=== PATIENT | female | born 1985 | race Caucasian/White ===

== ENCOUNTER 2024-02-29 16:08 | Observation (INO) ==
--- NOTE | 2024-02-29 16:13 | ED Triage Note ---
Date of Service February 29, 2024 Provider in Triage Author: Prisca Fields History of Present Illness This patient was briefly evaluated while in triage. An abbreviated physical exam was performed. This patient is a 39-year-old Female who presents to the ED for evaluation DMT1, anxiety nausea and vomiting x 4 days- BSG 350 just [employer] "not feeling well mentally" having panic attacks no specific thoughts of harming herself, "I just have to will to live" Physical Exam GENERAL: NAD CARDIOVASCULAR: RRR RESPIRATORY: CTA ABDOMEN: BS present. NT to palpation throughout Initial orders for labs and / or imaging were placed and patient was placed in the waiting area until a bed is available. Please see further documentation for the full ED course.
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
[2024-02-29] MEDS: SODIUM CHLORIDE 0.9% 1,000 ML IV ONE (17:20)
[2024-02-29] MEDS: ONDANSETRON INJ 2 MG/ML 2 ML VIAL IV STA ×2 (17:28→20:18)
[2024-02-29] MEDS: ONDANSETRON 4 MG OD TAB PO STA (17:28)
[2024-02-29 17:35] LABS: Appearance Urine Clear (Clear); Bacteria Urine Automated 1+ (None Seen); Bilirubin Urine Negative (Negative); Blood Urine Negative (Negative); Cast Urine Automated 0-2 /lpf (0-2); Color Urine Yellow; Glucose Urine UA 3+ (Negative); Ketones Urine 4+ (Negative); Leukocyte Esterase Urine Negative (Negative); Nitrite Urine Negative (Negative); Protein Urine Trace (Negative); RBC Urine Automated 0-2 /hpf (0-2); Specific Gravity Urine 1.041 (1.000-1.030); Urobilinogen Urine Negative (Negative); WBC Urine Automated 0-5 /hpf (0-5); pH Urine 6.5 (4.5-7.5)
[2024-02-29 18:01] LABS: Amphetamines+Metham, Urine Neg (Neg); Barbiturates, Urine Neg (Neg); Benzodiazepine, Urine Pos (Neg); Cocaine, Urine Neg (Neg); Fentanyl, Urine Neg (Neg); MDMA (Ecstacy), Urine Neg (Neg); Marijuana, Urine Neg (Neg); Methadone, Urine Neg (Neg); Opiate, Urine Neg (Neg); Phencyclidine, Urine Neg (Neg)
[2024-02-29 18:05] LABS: Base Excess VBG 3.7 mEq/L; HCO3 VBG 28 mmol/L; Oxygen Saturation VBG 96.7 %; PCO2 VBG 39 mmHg (38-50); PO2 VBG 77 mmHg; pH VBG 7.46 (7.36-7.41)
[2024-02-29 18:11] LABS: Basophils # (auto) 0.02 K/uL (0.00-0.20); Basophils % (auto) 0.2 %; Eosinophils # (auto) 0.01 K/uL (0.00-0.50); Eosinophils % (auto) 0.1 %; Hematocrit (blood only) 34.2 % (37.0-47.0); Hemoglobin 11.7 g/dl (12.0-16.0); Immature Granulocytes # (auto) 0.07 K/uL (0.01-0.20); Immature Granulocytes % (auto) 0.6 %; Lymphocytes # (auto) 1.07 K/uL (1.20-3.40); Lymphocytes % (auto) 9.9 %; Mean Corpuscular Hemoglobin 28.2 pg (25.0-34.0); Mean Corpuscular Hgb Conc 34.2 g/dL (32.0-36.0); Mean Corpuscular Volume 82.4 fL (80.0-100.0); Mean Platelet Volume 10.7 fL (9.4-12.4); Monocytes # (auto) 0.65 K/uL (0.11-0.59); Neutrophils # (auto) 9.04 K/uL (1.40-6.50); Neutrophils % (auto) 83.2 %; Platelet Count 216 K/uL (130-400); RDW Standard Deviation 38.8 fL (36.4-46.3); Red Blood Count 4.15 M/uL (4.20-5.40); White Blood Count 10.86 K/ul (4.8-10.8)
[2024-02-29 18:23] LABS: Pregnancy Test, Serum Negative (Negative)
[2024-02-29 18:27] LABS: Albumin Globulin Ratio 1.2 (0.9-2); Albumin Level 4.1 gm/dl (3.4-5.0); BUN Creatinine Ratio 14.3 (10-20); Bilirubin,Total 0.8 mg/dl (0.2-1.0); Calcium 8.3 mg/dl (8.6-10.3); Creatinine Clr Calc Pharmacy 130.1 ml/min; Globulin 3.5 gm/dl (2.5-4.0); Magnesium 1.8 mg/dl (1.7-2.4); Potassium 3.7 mmol/L (3.5-5.1); Total Protein 7.6 gm/dl (6.0-8.3)
[2024-02-29 18:28] LABS: Adenovirus PCR Not Detected (NotDetected); Bordetella parapertussis PCR Not Detected (NotDetected); Bordetella pertussis PCR Not Detected (NotDetected); Chlamydia pneumoniae PCR Not Detected (NotDetected); Coronavirus 229E PCR Not Detected (NotDetected); Coronavirus CoV-2 (COVID19)PCR Not Detected (NotDetected); Coronavirus HKU1 PCR Not Detected (NotDetected); Coronavirus NL63 PCR Not Detected (NotDetected); Coronavirus OC43PCR Not Detected (NotDetected); Human Metapneumovirus PCR Not Detected (NotDetected); Influenza A PCR Not Detected (NotDetected); Influenza B PCR Not Detected (NotDetected); Mycoplasma pneumoniae PCR Not Detected (NotDetected); Parainfluenza Virus 1 PCR Not Detected (NotDetected); Parainfluenza Virus 2 PCR Not Detected (NotDetected); Parainfluenza Virus 3 PCR Not Detected (NotDetected); Parainfluenza Virus 4 PCR Not Detected (NotDetected); Respiratory Syncytial VirusPCR Not Detected (NotDetected); Rhinovirus/Enterovirus PCR Not Detected (NotDetected)
[2024-02-29 18:37] LABS: Acetaminophen < 3 ug/ml (10-30); Salicylate < 3.0 mg/dl (3.0-30)
[2024-02-29] MEDS: hydrOXYzine HCl 10 MG TAB PO ONE (18:41)
[2024-02-29] MEDS: diphenhydrAMINE 50 MG/ML VIAL IV STA (18:41)
[2024-02-29] MEDS: PROCHLORPERAZINE 1 ML IV ONE (18:41)
[2024-02-29] MEDS: PANTOprazole 40 MG/10 ML SYR IV ONE (19:07)
[2024-02-29] MEDS: SODIUM CHLORIDE 0.9% 500 ML IV ONE (20:18)
[2024-02-29] MEDS: OPTIRAY 320 100ml IV ONE (20:44)
--- NOTE | 2024-02-29 21:16 | CT Scan Report ---
Exam(s): CT ABDOMEN + PELVIS With Contrast IV Amt: 92 cc's optiray 320 EXAM: CT Abdomen and Pelvis With Intravenous Contrast CLINICAL HISTORY: abd pain; N/V. TECHNIQUE: Axial computed tomography images of the abdomen and pelvis with intravenous contrast. CTDI is 28.14 mGy and DLP is 1507.39 mGy-cm. Automated exposure control was utilized for the study. A dose lowering technique was utilized adhering to the principles of ALARA. CONTRAST: Patient received 92 cc's optiray 320 of IV contrast COMPARISON: CT abdomen and pelvis with contrast dated 12/26/2023 FINDINGS: Lung bases: Unremarkable. No mass. No consolidation. ABDOMEN: Liver: Unremarkable. No mass. Gallbladder and bile ducts: Cholecystectomy. No ductal dilation. Pancreas: Unremarkable. No mass. No ductal dilation. Spleen: Unremarkable. No splenomegaly. Adrenals: Unremarkable. No mass. Kidneys and ureters: Unremarkable. No solid mass. No hydronephrosis. Stomach and bowel: Stomach is moderately distended with fluid and gas. No gastric mucosal thickening noted. No bowel obstruction. No asymmetric bowel mucosal abnormality. Mild stool burden. No diverticulitis. PELVIS: Appendix: The appendix is not well delineated. No secondary findings to suggest acute appendicitis. Bladder: Unremarkable. No mass. Reproductive: Probable 1.5 cm follicle involving the right adnexa/ovary with adjacent surrounding enhancing tissue. ABDOMEN and PELVIS: Intraperitoneal space: Unremarkable. No free air. No significant fluid collection. Bones/joints: No acute fracture. No dislocation. Soft tissues: Unremarkable. Vasculature: Unremarkable. No abdominal aortic aneurysm. Lymph nodes: Prominent concentric mucosal thickening of the distal thoracic esophagus with paraesophageal fat stranding and edema and a presumed paraesophageal reactive lymph node, measuring up to 7 mm. There is moderate fluid distention of the included distal thoracic esophagus extending to the gastroesophageal junction. No pneumomediastinum. IMPRESSION: 1. Prominent concentric mucosal thickening of the distal thoracic esophagus with paraesophageal fat stranding and edema and a presumed paraesophageal reactive lymph node, measuring up to 7 mm. There is moderate fluid distention of the included distal thoracic esophagus extending to the gastroesophageal junction. No pneumomediastinum. Findings are most consistent with inflammatory or infectious esophagitis with a component of dysmotility. 2. The stomach is moderately distended with fluid and gas. No gastric mucosal thickening noted. No bowel obstruction. No asymmetric bowel mucosal abnormality. Mild stool burden. No diverticulitis. No free intraperitoneal fluid or pneumoperitoneum. 3. Probable 1.5 cm follicle involving the right adnexa/ovary with adjacent surrounding enhancing tissue. The clinical significance of this finding is indeterminant and this is presumed incidental. There is a leftward tilt of the anteverted uterus. The left adnexa is unremarkable. Electronically signed by: Rafa Mendoza MD 02/29/24 21:15 PM
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
--- NOTE | 2024-02-29 22:05 | XRay Report ---
SINGLE VIEW CHEST CLINICAL HISTORY: Enteric tube placement. FINDINGS: An AP, portable, upright chest radiograph is compared to study dated 02/04/2024. The examina tion is degraded by portable technique and patient rotation. An enteric tube has been placed. The tip projects below the diaphragm over the gastric fundus. The cardiomediastinal silhouette is unremarkab le. The lungs and pleural spaces are clear. No pneumothorax is seen. The bony thorax is grossly intac t. Cholecystectomy clips are seen in the right upper quadrant. IMPRESSION: 1. An enteric tube has been placed as above. 2. The lungs are clear. ACT 112: Negative or not required by law. Electronically signed by: Duy Marcus M.D. 02/29/2024 10:03 PM
[2024-02-29] MEDS: ACETAMINOPHEN 1,000 MG/100 ML VIAL IV STA (22:43)
[2024-02-29] MEDS: PROCHLORPERAZINE 5 MG in SYRINGE 4 ML IV ONE (23:07)
[2024-03-01] MEDS ORDERED: DEXTROSE 50% 50 ML SYRINGE IV PRN (00:11)
[2024-03-01] MEDS ORDERED: PHARMACY GLYCEMIC MGMT CONSULT PRN (00:11)
[2024-03-01] MEDS ORDERED: PROCHLORPERAZINE 5 MG in SYRINGE 4 ML IV PRN (00:11)
[2024-03-01] MEDS ORDERED: GLUCAGON FOR INJ 1 MG VIAL SQ PRN (00:11)
[2024-03-01] MEDS ORDERED: CARBOHYDRATES FOR HYPOGLYCEMIA PO PRN (00:11)
[2024-03-01] MEDS ORDERED: ONDANSETRON INJ 2 MG/ML 2 ML VIAL IV PRN (00:11)
[2024-03-01] MEDS ORDERED: GLUCOSE 40% GEL 15 GM TUBE PO PRN (00:11)
[2024-03-01] MEDS ORDERED: METOPROLOL TARTRATE 1 MG/ML VIAL IV PRN (00:11)
[2024-03-01] MEDS ORDERED: GLUCOSE 10 TAB/TUBE PO PRN (00:11)
[2024-03-01] MEDS: diazePAM 5 MG/ML 10ML VIAL IV PRN (00:52)
[2024-03-01] MEDS ORDERED: Nursing to Pharmacy Communication SCH (01:00)
[2024-03-01] MEDS: INSULIN ASPART PER UNIT CHARGE SC SCH ×2 (01:04→16:52)
[2024-03-01] MEDS: PLASMA-LYTE A 1,000 ML IV SCH (01:05)
[2024-03-01] MEDS: LANTUS PER UNIT CHARGE SQ SCH (01:05)
[2024-03-01] MEDS: PANTOprazole 40 MG/10 ML SYR IV SCH (02:02)
[2024-03-01] MEDS: FAMOTIDINE 20MG IV PUSH 20 MG/5 ML SYR IV SCH (02:02)
[2024-03-01] MEDS: HYDROmorphone INJ 0.5 MG/0.5 ML SYR IV STA (06:50)
[2024-03-01 07:12] LABS: Estimated Average Glucose 177 mg/dl; Hemoglobin A1C 7.8 % (4.5-5.6)
[2024-03-01 07:30] LABS: Albumin Globulin Ratio 1.3 (0.9-2); Albumin Level 3.6 gm/dl (3.4-5.0); BUN Creatinine Ratio 17.9 (10-20); Bilirubin,Total 0.6 mg/dl (0.2-1.0); Calcium 7.6 mg/dl (8.6-10.3); Creatinine Clr Calc Pharmacy 147.9 ml/min; Globulin 2.8 gm/dl (2.5-4.0); Potassium 3.8 mmol/L (3.5-5.1); Total Protein 6.4 gm/dl (6.0-8.3)
[2024-03-01 08:35] LABS: Hemoglobin 10.6 g/dl (12.0-16.0); Mean Corpuscular Hgb Conc 33.1 g/dL (32.0-36.0); Mean Corpuscular Volume 84.7 fL (80.0-100.0); RDW Coefficient of Variation 13.2 % (11.5-14.5); RDW Standard Deviation 40.3 fL (36.4-46.3); Red Blood Count 3.78 M/uL (4.20-5.40); White Blood Count 8.29 K/ul (4.8-10.8)
[2024-03-01 08:40] LABS: Basophils # (auto) 0.03 K/uL (0.00-0.20); Basophils % (auto) 0.4 %; Eosinophils # (auto) 0.07 K/uL (0.00-0.50); Eosinophils % (auto) 0.8 %; Immature Granulocytes # (auto) 0.03 K/uL (0.01-0.20); Immature Granulocytes % (auto) 0.4 %; Lymphocytes # (auto) 1.64 K/uL (1.20-3.40); Lymphocytes % (auto) 19.8 %; Mean Platelet Volume 11.6 fL (9.4-12.4); Monocytes # (auto) 0.67 K/uL (0.11-0.59); Monocytes % (auto) 8.1 %; Neutrophils # (auto) 5.85 K/uL (1.40-6.50); Neutrophils % (auto) 70.5 %; Ovalocytes 1+; Platelet Count 201 K/uL (130-400); Platelet Estimate Normal (Normal); Polychromasia 1+
[2024-03-01] MEDS: ACETAMINOPHEN 1,000 MG/100 ML VIAL IV PRN (09:12)
--- NOTE | 2024-03-01 09:19 | Hospitalist Progress Note ---
Date of Service March 01, 2024 Assessment & Plan (1) Esophagitis: Plan: 39-year-old female presenting with intractable N/V; History of GERD, takes carafate, famotidine, nexium; Panic attacks trigger episodes of N/V. Appears to follow with [facility] diagnosed with gastroparesis. - 02/28: Dark/coffee ground appearance of emesis - Note: pts med record shows recent prescription for doxycycline, however patient states she never started this (was initially prescribed for boil near vaginal opening, but resolved) - CT A/P: inflammatory or infectious esophagitis with a component of dysmotility--> NG placed in ED, draining dark colored liquid, +positive for occu lt blood - T1DM; consider diabetes related gastroparesis/dysmotility as contributing factor - H/H 11.7/34.2 now 10.6/32.0; down from baseline, could be hemodilutional versus from acute blood loss - IV pepcid, protonix BID - Zofran, Compazine PRN -Resume home Carafate po - GI consulted- EGD 03/01--> esophageal ulcer with bleeding at the lower third of esophagus, with appearance of gastric congestion from likely a pill; dispersed medium erosions of recent bleeding in gastric body likely secondary to NG tube - Chloraseptic [place] for sore throat 2/2 NG tube placed -Clear liquids diet only now Appreciate GI input and recs (2) Type 1 diabetes: Plan: T1DM; at home Lantus 20U daily, 19 U HS - Hyperglycemic on arrival (277), +ketones, glucose in urine - Not currently meeting criteria for DKA - A1c 7.8% - Pharmacy glycemic management consult; basal insulin dose currently cut in half while n.p.o. -Add D5 to fluids if not able to take adequate p.o. and hypoglycemia (3) Depression: Plan: Multiple mental health diagnosed disorders - PTSD, schizoaffective Disorder, Depression, Anxiety - Multiple prior admissions at inpatient psychiatric facilities --> [facility] - Continue Invega injection as scheduled--> STOP prazosin and valium - Patient with passive statements about "losing will to live", denies active suicidal thoughts or plans for suicide - Feeling very anxious today, would like to be considered for inpatient treatment following this discharge - Psych consulted- concern for treatment resistant PTSD per psych, recs as follows: Stop prazosin, start doxazosin 3 mg at bedtime and 2 mg daily. Patient unable to take oral benzos when anxiety symptoms occur secondary to intractable nausea/vomiting when this happens; stop Valium, start clonazepam 0.5 mg ODT twice daily, as well as daily, as needed, for breakthrough anxiety; adjustments made Appreciate psych input and recs Plan Tachycardia -Takes metoprolol succinate 25mg BID at home; adjusted to IV lopressor 2.5mg q6h PRN while NPO Dispo: Pending clinical improvement and GI recs VTE Prophylaxis: hold in setting of coffee ground emesis Code Status: Full Code Admission and Anticipated Discharge Date Admission Date: February 29, 2024 Supervising Physician Co-Signing Physician Notes Physician Retail Merchandising Specialist Supervision note: I have not personally seen and examined the patient, but discussed and verified the benson points of the history and physical along with the plan with MATTHEW Rae with the following exceptions and/or additions: None Subjective Pt is laying in bed at time of visit. States that she is still experiencing significant abdominal pain, and nausea. Also admits to a sore throat secondary to NG tube placement. Presently feeling very anxious. Denies chest pain, shortness of breath, diarrhea/constipation, headache, numbness/tingling. No recent or excessive NSAID use per patient. No new concerns per nursing. Telemetry: NSR with occasional PVCs, HR 60-70s Review of Systems Review of Systems: All systems reviewed & are unremarkable except as noted in Subjective Physical Exam Physical Exam: General: Appears uncomfortable Skin: Warm and dry Head: Normocephalic, atraumatic Eyes: PERRL, conjunctivae clear ENT: External ear and ear canal without swelling; nose atraumatic, NG tube placed Neck: Supple, no LAD; no JVD Cardio: RRR, no M/G/R, S1 and S2 normal Resp: Chest wall symmetric, normal respiratory effort; No respiratory distress, Lungs CTA in all lobes bilaterally, no wheezes, rales, or rhonchi Abdomen: Soft, nontender; no distention; No masses or hepatosplenomegaly MSK: No deformities; Pulses palpable and equal; No edema. Neuro: Awake, alert Psych: Appropriate mood and affect Results & Data Results & Data Vital Signs (Past 12 Hours) Vital Signs Temp Pulse Pulse Resp BP Pulse Ox Pulse Ox 03/01/24 07:27 36.8 C 76 19 102/65 92 03/01/24 03:10 36.6 C 67 18 117/73 98 03/01/24 00:46 104 H 03/01/24 00:30 03/01/24 00:11 94 03/01/24 00:10 37.1 C 103 H 22 134/89 94 O2 Del Method O2 Del Method 03/01/24 07:27 Room Air 03/01/24 03:10 Room Air 03/01/24 00:46 03/01/24 00:30 Room Air 03/01/24 00:11 Room Air 03/01/24 00:10 Room Air Laboratory Results CBC, BMP, LFTs reviewed Urine culture reviewed Diagnostic Findings EGD report reviewed PG Care Time/CCT Total # of Minutes Spent Total Time Spent with Patient: Total time spent is greater than 50% in coordination of care (as documented) at patient's floor/unit and/or counseling patient: Coding Level of Care Code 49432 SUB INP/OBS CARE 3/50MIN Diagnoses Esophagitis K20.90 Type 1 diabetes E10.9 Diabetes mellitus complication status: without complication Depression F32.A Time Spent (min) 40 (2) Type 1 diabetes Diabetes mellitus complication status: without complication Qualified Code(s): E10.9 - Type 1 diabetes mellitus without complications
--- NOTE | 2024-03-01 11:01 | Pharmacy Report ---
Pharmacy Glycemic Short Note 2 - Date of Service March 01, 2024 - Glycemic Short BSG Results (Last 24 hours): 02/29/24 03/01/24 03/01/24 17:55 00:40 06:16 Glucose 277 H 191 H POC Glucose 217 H 03/01/24 06:25 Glucose POC Glucose 206 H OUTPATIENT ANTIDIABETIC REGIMEN: * Insulin Glargine 20 units AM, 19 units PM * Insulin Aspart SSI, range 5-12 units with meal * A1c 7.8% 03/01/24 ASSESSMENT: 03/01 * FS is here for treatment of GI bleed, N/V, and esophagitis. Pharmacy consulted to manage her T1DM while inpatient. BSGs high on admission, lowered to 191 this AM. Pt currently NPO, receiving plasmalyte. Concern for hypoglycemia while NPO and ongoing N/V, therefore reduced home dose of glargine by 50%. PLAN FOR INPATIENT GLYCEMIC CONTROL: * Hold outpatient diabetes medications * Basal insulin * Lantus 10 units SQ BID * Bolus insulin * NovoLog per scale ACHS or Q6hrs while NPO * Goal Range: Low 110 mg/dL - High 140 mg/dL * Correction Factor: 45 mg/dL/unit * Nutritional / Prandial insulin per carb ratio of 1 unit per 15 grams CHO consumed
--- NOTE | 2024-03-01 13:07 | Gastrointestinal Consultation ---
Date of Consultation March 01, 2024 Assessment & Plan (1) Coffee ground emesis: 39 year old woman with coffee grround emesis of 48 hours duration. While it sounds like it is related to esophagitis she is on aggressive medical treatment for esophagitis. I plan to do EGD. Procedure and risks for endoscopy discussed. She agrees. History of Present Illness Reason for Consultation: hematemesis Attending Physician: Naima Rivas MD History of Present Illness 39 year old female who says for the past two days she has been vomiting "black stuff". She has heartburn for which she takes nexium, pepcid and carafate. She tells me she was diagnosed with "gastroparesis" by [facility] but they cannot put her on meds because it interferes with her psyche meds. She denies abdominal pain. She denies fever or chills Allergies Allergy/AdvReac Type Severity Reaction Status Date / Time Penicillins Allergy Unknown Verified 03/01/24 12:56 Home Medications Medication Instructions Recorded Confirmed Type insulin detemir U-100 100 unit/mL 19 unit subcut HS 12/26/23 02/29/24 History subcutaneous solution insulin detemir U-100 100 unit/mL 20 unit subcut DAILY 12/26/23 02/29/24 History subcutaneous solution prazosin 2 mg capsule 3 mg PO HS 12/26/23 02/29/24 History esomeprazole magnesium 40 mg 40 mg PO BID 02/05/24 02/29/24 History capsule,delayed release (Nexium) famotidine 20 mg tablet 40 mg PO BID 02/05/24 02/29/24 History Carafate PO QID 02/29/24 History Invega 02/29/24 History Novolog U-100 Insulin aspart AC 02/29/24 History Valium 10 mg PO BID 02/29/24 02/29/24 History metoprolol tartrate 25 mg PO BID 02/29/24 02/29/24 History Patient History Social History Smoking Status: Smoker, status unknown Do You Dip or Chew Tobacco: No; Tobacco Cessation Education Requested by Patient: No Hx Alcohol Use: No Hx Substance Use: No Preferred Language: Montenegrin Communication Ability: Effective 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: No Beliefs That Will Affect Care: None Current Living Situation: Significant Other Other Information That Helps Us Care for You: No Feels Safe at Home: Yes Safety Concerns: Feels Safe At This Time Gender Identity: Female Assistive Devices: None Review of Systems Review of Systems: All systems reviewed & are unremarkable except as noted in HPI & below Physical Exam Constitutional: WD/WN, vitals as above + morbidly obese Neck: trachea midline, no thyromegaly Respiratory: normal respiratory effort, lungs clear to auscultation Cardiovascular: RRR, no murmur, no edema Gastrointestinal (Abdomen): normal bowel sounds, soft, nontender, no hepatosplenomegaly Musculoskeletal: Extremities: extremities normal to inspection Results & Data Vital Signs (Past 12 Hours) Vital Signs Temp Pulse Resp BP Pulse Ox O2 Del Method 03/01/24 11:26 36.7 C 85 18 103/64 92 Room Air 03/01/24 07:27 36.8 C 76 19 102/65 92 Room Air 03/01/24 03:10 36.6 C 67 18 117/73 98 Room Air Laboratory Results 03/01/24 03/01/24 03/01/24 Range/Units 11:25 06:25 06:16 WBC (4.8-10.8) K/ul RBC (4.20-5.40) M/uL Hgb (12.0-16.0) g/dl Hct (37.0-47.0) % MCV (80.0-100.0) fL MCH (25.0-34.0) pg MCHC (32.0-36.0) g/dL RDW Std Deviation (36.4-46.3) fL RDW Coeff of Amy (11.5-14.5) % Plt Count (130-400) K/uL MPV (9.4-12.4) fL Immature Gran % (Auto) % Neut % (Auto) % Lymph % (Auto) % [place] % (Auto) % Eos % (Auto) % Baso % (Auto) % Neut # (Auto) (1.40-6.50) K/uL Lymph # (Auto) (1.20-3.40) K/uL [place] # (Auto) (0.11-0.59) K/uL Eos # (Auto) (0.00-0.50) K/uL Baso # (Auto) (0.00-0.20) K/uL Immature Gran # (Auto) (0.01-0.20) K/uL Platelet Estimate (Normal) Polychromasia Ovalocytes VBG pH (7.36-7.41) VBG pCO2 (38-50) mmHg VBG pO2 mmHg VBG HCO3 mmol/L VBG O2 Saturation % VBG Base Excess mEq/L Sodium 136 (136-145) mmol/L Potassium 3.8 (3.5-5.1) mmol/L Chloride 103 (98-107) mmol/L Carbon Dioxide 24 (21-32) mmol/L Anion Gap 9 (3-11) BUN 10 (6-23) mg/dl Creatinine 0.56 L (0.6-1.2) mg/dl Est Cr Clr Drug Dosing 147.9 ml/min eGFR 118.25 BUN/Creatinine Ratio 17.9 (10-20) Glucose 191 H (70-99(Fasting)) mg/dl POC Glucose 164 H 206 H (70-99) mg/dl Estimat Average Glucose mg/dl Hemoglobin A1c (4.5-5.6) % Calcium 7.6 L (8.6-10.3) mg/dl Magnesium 2.0 (1.7-2.4) mg/dl Total Bilirubin 0.6 (0.2-1.0) mg/dl AST 12 L (13-39) U/L ALT 10 (7-52) U/L Alkaline Phosphatase 65 (34-104) U/L Total Protein 6.4 (6.0-8.3) gm/dl Albumin 3.6 (3.4-5.0) gm/dl Globulin 2.8 (2.5-4.0) gm/dl Albumin/Globulin Ratio 1.3 (0.9-2) Lipase (11-82) U/L HCG, Qual (Negative) Urine Color Urine Appearance (Clear) Urine pH (4.5-7.5) Ur Specific [place] (1.000-1.030) Urine Protein (Negative) Urine Glucose (UA) (Negative) Urine Ketones (Negative) Urine Blood (Negative) Urine Nitrite (Negative) Urine Bilirubin (Negative) Urine Urobilinogen (Negative) Ur Leukocyte Esterase (Negative) Urine WBC (Auto) (0-5) /hpf Urine RBC (Auto) (0-2) /hpf U Hyaline Cast (Auto) (0-2) /lpf U Epithel Cells (Auto) (0-2) /hpf Urine Bacteria (Auto) (None Seen) Salicylates (3.0-30) mg/dl Urine Opiates Screen (Neg) Ur Methadone, Qual (Neg) Urine Fentanyl Screen (Neg) Acetaminophen (10-30) ug/ml Urine Barbiturates (Neg) Ur Phencyclidine (PCP) (Neg) U Amphetamin/Meth Scrn (Neg) MDMA (Ecstasy) Screen (Neg) U OH-Alprazolam Confrm U Benzodiazepines Scrn (Neg) 7-Amino Clonazepam Ur Nordiazepam Confirm U OH-ethylflurazepam U Lorazepam Cnf GC/MS U Oxazepam Confm GC/MS Ur Temazepam Confirm U OH-Triazolam Confirm U OH-Midazolam Confirm Ur Cocaine Metabolite (Neg) U Marijuana (THC) Screen (Neg) Drug Screen Comment Ethyl Alcohol mg/dL (<10.0) mg/dl Adenovirus (PCR) (NotDetected) B. pertussis DNA (PCR) (NotDetected) B.parapertussis DNA PCR (NotDetected) C. pneumoniae DNA (PCR) (NotDetected) Coronavirus OC43 (PCR) (NotDetected) Coronavirus HKU1 (PCR) (NotDetected) Coronavirus 229E (PCR) (NotDetected) SARS-CoV-2 (PCR) (NotDetected) Coronavirus NL63 (PCR) (NotDetected) Human Metapneumovir PCR (NotDetected) Influenza Type A (PCR) (NotDetected) Influenza Type B (PCR) (NotDetected) M. pneumoniae (PCR) (NotDetected) Parainfluenza 1 (PCR) (NotDetected) Parainfluenza 2 (PCR) (NotDetected) Parainfluenza 3 (PCR) (NotDetected) Parainfluenza 4 (PCR) (NotDetected) RSV (PCR) (NotDetected) Entero/Rhino (PCR) (NotDetected) Blood Type Antibody Screen 03/01/24 03/01/24 02/29/24 Range/Units 06:01 00:40 19:59 WBC 8.29 (4.8-10.8) K/ul RBC 3.78 L (4.20-5.40) M/uL Hgb 10.6 L (12.0-16.0) g/dl Hct 32.0 L (37.0-47.0) % MCV 84.7 (80.0-100.0) fL MCH 28.0 (25.0-34.0) pg MCHC 33.1 (32.0-36.0) g/dL RDW Std Deviation 40.3 (36.4-46.3) fL RDW Coeff of Amy 13.2 (11.5-14.5) % Plt Count 201 (130-400) K/uL MPV 11.6 (9.4-12.4) fL Immature Gran % (Auto) 0.4 % Neut % (Auto) 70.5 % Lymph % (Auto) 19.8 % [place] % (Auto) 8.1 % Eos % (Auto) 0.8 % Baso % (Auto) 0.4 % Neut # (Auto) 5.85 (1.40-6.50) K/uL Lymph # (Auto) 1.64 (1.20-3.40) K/uL [place] # (Auto) 0.67 H (0.11-0.59) K/uL Eos # (Auto) 0.07 (0.00-0.50) K/uL Baso # (Auto) 0.03 (0.00-0.20) K/uL Immature Gran # (Auto) 0.03 (0.01-0.20) K/uL Platelet Estimate Normal (Normal) Polychromasia 1+ Ovalocytes 1+ VBG pH (7.36-7.41) VBG pCO2 (38-50) mmHg VBG pO2 mmHg VBG HCO3 mmol/L VBG O2 Saturation % VBG Base Excess mEq/L Sodium (136-145) mmol/L Potassium (3.5-5.1) mmol/L Chloride (98-107) mmol/L Carbon Dioxide (21-32) mmol/L Anion Gap (3-11) BUN (6-23) mg/dl Creatinine (0.6-1.2) mg/dl Est Cr Clr Drug Dosing ml/min eGFR BUN/Creatinine Ratio (10-20) Glucose (70-99(Fasting)) mg/dl POC Glucose 217 H (70-99) mg/dl Estimat Average Glucose 177 mg/dl Hemoglobin A1c 7.8 H (4.5-5.6) % Calcium (8.6-10.3) mg/dl Magnesium (1.7-2.4) mg/dl Total Bilirubin (0.2-1.0) mg/dl AST (13-39) U/L ALT (7-52) U/L Alkaline Phosphatase (34-104) U/L Total Protein (6.0-8.3) gm/dl Albumin (3.4-5.0) gm/dl Globulin (2.5-4.0) gm/dl Albumin/Globulin Ratio (0.9-2) Lipase (11-82) U/L HCG, Qual (Negative) Urine Color Urine Appearance (Clear) Urine pH (4.5-7.5) Ur Specific [place] (1.000-1.030) Urine Protein (Negative) Urine Glucose (UA) (Negative) Urine Ketones (Negative) Urine Blood (Negative) Urine Nitrite (Negative) Urine Bilirubin (Negative) Urine Urobilinogen (Negative) Ur Leukocyte Esterase (Negative) Urine WBC (Auto) (0-5) /hpf Urine RBC (Auto) (0-2) /hpf U Hyaline Cast (Auto) (0-2) /lpf U Epithel Cells (Auto) (0-2) /hpf Urine Bacteria (Auto) (None Seen) Salicylates (3.0-30) mg/dl Urine Opiates Screen (Neg) Ur Methadone, Qual (Neg) Urine Fentanyl Screen (Neg) Acetaminophen (10-30) ug/ml Urine Barbiturates (Neg) Ur Phencyclidine (PCP) (Neg) U Amphetamin/Meth Scrn (Neg) MDMA (Ecstasy) Screen (Neg) U OH-Alprazolam Confrm U Benzodiazepines Scrn (Neg) 7-Amino Clonazepam Ur Nordiazepam Confirm U OH-ethylflurazepam U Lorazepam Cnf GC/MS U Oxazepam Confm GC/MS Ur Temazepam Confirm U OH-Triazolam Confirm U OH-Midazolam Confirm Ur Cocaine Metabolite (Neg) U Marijuana (THC) Screen (Neg) Drug Screen Comment Ethyl Alcohol mg/dL (<10.0) mg/dl Adenovirus (PCR) (NotDetected) B. pertussis DNA (PCR) (NotDetected) B.parapertussis DNA PCR (NotDetected) C. pneumoniae DNA (PCR) (NotDetected) Coronavirus OC43 (PCR) (NotDetected) Coronavirus HKU1 (PCR) (NotDetected) Coronavirus 229E (PCR) (NotDetected) SARS-CoV-2 (PCR) (NotDetected) Coronavirus NL63 (PCR) (NotDetected) Human Metapneumovir PCR (NotDetected) Influenza Type A (PCR) (NotDetected) Influenza Type B (PCR) (NotDetected) M. pneumoniae (PCR) (NotDetected) Parainfluenza 1 (PCR) (NotDetected) Parainfluenza 2 (PCR) (NotDetected) Parainfluenza 3 (PCR) (NotDetected) Parainfluenza 4 (PCR) (NotDetected) RSV (PCR) (NotDetected) Entero/Rhino (PCR) (NotDetected) Blood Type A Positive Antibody Screen NEGATIVE 02/29/24 02/29/24 02/29/24 Range/Units 17:55 16:35 16:25 WBC 10.86 H (4.8-10.8) K/ul RBC 4.15 L (4.20-5.40) M/uL Hgb 11.7 L (12.0-16.0) g/dl Hct 34.2 L (37.0-47.0) % MCV 82.4 (80.0-100.0) fL MCH 28.2 (25.0-34.0) pg MCHC 34.2 (32.0-36.0) g/dL RDW Std Deviation 38.8 (36.4-46.3) fL RDW Coeff of Amy 13.0 (11.5-14.5) % Plt Count 216 (130-400) K/uL MPV 10.7 (9.4-12.4) fL Immature Gran % (Auto) 0.6 % Neut % (Auto) 83.2 % Lymph % (Auto) 9.9 % [place] % (Auto) 6.0 % Eos % (Auto) 0.1 % Baso % (Auto) 0.2 % Neut # (Auto) 9.04 H (1.40-6.50) K/uL Lymph # (Auto) 1.07 L (1.20-3.40) K/uL [place] # (Auto) 0.65 H (0.11-0.59) K/uL Eos # (Auto) 0.01 (0.00-0.50) K/uL Baso # (Auto) 0.02 (0.00-0.20) K/uL Immature Gran # (Auto) 0.07 (0.01-0.20) K/uL Platelet Estimate (Normal) Polychromasia Ovalocytes VBG pH 7.46 H (7.36-7.41) VBG pCO2 39 (38-50) mmHg VBG pO2 77 mmHg VBG HCO3 28 mmol/L VBG O2 Saturation 96.7 % VBG Base Excess 3.7 mEq/L Sodium 134 L (136-145) mmol/L Potassium 3.7 (3.5-5.1) mmol/L Chloride 97 L (98-107) mmol/L Carbon Dioxide 24 (21-32) mmol/L Anion Gap 13 H (3-11) BUN 9 (6-23) mg/dl Creatinine 0.63 (0.6-1.2) mg/dl Est Cr Clr Drug Dosing 130.1 ml/min eGFR 114.94 BUN/Creatinine Ratio 14.3 (10-20) Glucose 277 H (70-99(Fasting)) mg/dl POC Glucose (70-99) mg/dl Estimat Average Glucose mg/dl Hemoglobin A1c (4.5-5.6) % Calcium 8.3 L (8.6-10.3) mg/dl Magnesium 1.8 (1.7-2.4) mg/dl Total Bilirubin 0.8 (0.2-1.0) mg/dl AST 14 (13-39) U/L ALT 13 (7-52) U/L Alkaline Phosphatase 78 (34-104) U/L Total Protein 7.6 (6.0-8.3) gm/dl Albumin 4.1 (3.4-5.0) gm/dl Globulin 3.5 (2.5-4.0) gm/dl Albumin/Globulin Ratio 1.2 (0.9-2) Lipase 6 L (11-82) U/L HCG, Qual Negative (Negative) Urine Color Yellow Urine Appearance Clear (Clear) Urine pH 6.5 (4.5-7.5) Ur Specific [place] 1.041 H (1.000-1.030) Urine Protein Trace H (Negative) Urine Glucose (UA) 3+ H (Negative) Urine Ketones 4+ H (Negative) Urine Blood Negative (Negative) Urine Nitrite Negative (Negative) Urine Bilirubin Negative (Negative) Urine Urobilinogen Negative (Negative) Ur Leukocyte Esterase Negative (Negative) Urine WBC (Auto) 0-5 (0-5) /hpf Urine RBC (Auto) 0-2 (0-2) /hpf U Hyaline Cast (Auto) 0-2 (0-2) /lpf U Epithel Cells (Auto) 3-5 H (0-2) /hpf Urine Bacteria (Auto) 1+ H (None Seen) Salicylates < 3.0 L (3.0-30) mg/dl Urine Opiates Screen Neg (Neg) Ur Methadone, Qual Neg (Neg) Urine Fentanyl Screen Neg (Neg) Acetaminophen < 3 L (10-30) ug/ml Urine Barbiturates Neg (Neg) Ur Phencyclidine (PCP) Neg (Neg) U Amphetamin/Meth Scrn Neg (Neg) MDMA (Ecstasy) Screen Neg (Neg) U OH-Alprazolam Confrm Pending U Benzodiazepines Scrn Pos H (Neg) 7-Amino Clonazepam Pending Ur Nordiazepam Confirm Pending U OH-ethylflurazepam Pending U Lorazepam Cnf GC/MS Pending U Oxazepam Confm GC/MS Pending Ur Temazepam Confirm Pending U OH-Triazolam Confirm Pending U OH-Midazolam Confirm Pending Ur Cocaine Metabolite Neg (Neg) U Marijuana (THC) Screen Neg (Neg) Drug Screen Comment Pending Ethyl Alcohol mg/dL < 10.0 (<10.0) mg/dl Adenovirus (PCR) Not Detected (NotDetected) B. pertussis DNA (PCR) Not Detected (NotDetected) B.parapertussis DNA PCR Not Detected (NotDetected) C. pneumoniae DNA (PCR) Not Detected (NotDetected) Coronavirus OC43 (PCR) Not Detected (NotDetected) Coronavirus HKU1 (PCR) Not Detected (NotDetected) Coronavirus 229E (PCR) Not Detected (NotDetected) SARS-CoV-2 (PCR) Not Detected (NotDetected) Coronavirus NL63 (PCR) Not Detected (NotDetected) Human Metapneumovir PCR Not Detected (NotDetected) Influenza Type A (PCR) Not Detected (NotDetected) Influenza Type B (PCR) Not Detected (NotDetected) M. pneumoniae (PCR) Not Detected (NotDetected) Parainfluenza 1 (PCR) Not Detected (NotDetected) Parainfluenza 2 (PCR) Not Detected (NotDetected) Parainfluenza 3 (PCR) Not Detected (NotDetected) Parainfluenza 4 (PCR) Not Detected (NotDetected) RSV (PCR) Not Detected (NotDetected) Entero/Rhino (PCR) Not Detected (NotDetected) Blood Type Antibody Screen Diagnostic Findings Abdomen/Pelvis CT 02/29/24 18:59 Exam(s): CT ABDOMEN + PELVIS With Contrast IV Amt: 92 cc's optiray 320 EXAM: CT Abdomen and Pelvis With Intravenous Contrast CLINICAL HISTORY: abd pain; N/V. TECHNIQUE: Axial computed tomography images of the abdomen and pelvis with intravenous contrast. CTDI is 28.14 mGy and DLP is 1507.39 mGy-cm. Automated exposure control was utilized for the study. A dose lowering technique was utilized adhering to the principles of ALARA. CONTRAST: Patient received 92 cc's optiray 320 of IV contrast COMPARISON: CT abdomen and pelvis with contrast dated 12/26/2023 FINDINGS: Lung bases: Unremarkable. No mass. No consolidation. ABDOMEN: Liver: Unremarkable. No mass. Gallbladder and bile ducts: Cholecystectomy. No ductal dilation. Pancreas: Unremarkable. No mass. No ductal dilation. Spleen: Unremarkable. No splenomegaly. Adrenals: Unremarkable. No mass. Kidneys and ureters: Unremarkable. No solid mass. No hydronephrosis. Stomach and bowel: Stomach is moderately distended with fluid and gas. No gastric mucosal thickening noted. No bowel obstruction. No asymmetric bowel mucosal abnormality. Mild stool burden. No diverticulitis. PELVIS: Appendix: The appendix is not well delineated. No secondary findings to suggest acute appendicitis. Bladder: Unremarkable. No mass. Reproductive: Probable 1.5 cm follicle involving the right adnexa/ovary with adjacent surrounding enhancing tissue. ABDOMEN and PELVIS: Intraperitoneal space: Unremarkable. No free air. No significant fluid collection. Bones/joints: No acute fracture. No dislocation. Soft tissues: Unremarkable. Vasculature: Unremarkable. No abdominal aortic aneurysm. Lymph nodes: Prominent concentric mucosal thickening of the distal thoracic esophagus with paraesophageal fat stranding and edema and a presumed paraesophageal reactive lymph node, measuring up to 7 mm. There is moderate fluid distention of the included distal thoracic esophagus extending to the gastroesophageal junction. No pneumomediastinum. IMPRESSION: 1. Prominent concentric mucosal thickening of the distal thoracic esophagus with paraesophageal fat stranding and edema and a presumed paraesophageal reactive lymph node, measuring up to 7 mm. There is moderate fluid distention of the included distal thoracic esophagus extending to the gastroesophageal junction. No pneumomediastinum. Findings are most consistent with inflammatory or infectious esophagitis with a component of dysmotility. 2. The stomach is moderately distended with fluid and gas. No gastric mucosal thickening noted. No bowel obstruction. No asymmetric bowel mucosal abnormality. Mild stool burden. No diverticulitis. No free intraperitoneal fluid or pneumoperitoneum. 3. Probable 1.5 cm follicle involving the right adnexa/ovary with adjacent surrounding enhancing tissue. The clinical significance of this finding is indeterminant and this is presumed incidental. There is a leftward tilt of the anteverted uterus. The left adnexa is unremarkable. Electronically signed by: Rafa Mendoza MD 02/29/24 21:15 PM Chest X-Ray 02/29/24 21:24 SINGLE VIEW CHEST CLINICAL HISTORY: Enteric tube placement. FINDINGS: An AP, portable, upright chest radiograph is compared to study dated 02/04/2024. The examination is degraded by portable technique and patient rotation. An enteric tube has been placed. The tip projects below the diaphragm over the gastric fundus. The cardiomediastinal silhouette is unremarkable. The lungs and pleural spaces are clear. No pneumothorax is seen. The bony thorax is grossly intact. Cholecystectomy clips are seen in the right upper quadrant. IMPRESSION: 1. An enteric tube has been placed as above. 2. The lungs are clear. ACT 112: Negative or not required by law. Electronically signed by: Duy Marcus M.D. 02/29/2024 10:03 PM
--- NOTE | 2024-03-01 13:21 | Anesthesiology Consultation ---
Date of Service March 01, 2024 Assessment & Plan Consults Requested medical & cardiac Pulmonary ASA ASA3 Proposed Anesthesia Anesthesia Type: MAC Risk / Benefits Reviewed With: PT / POA / Parent / Guardian, Accepts Plan and Informed Consent Obtained History Surgery Operation Date: 03/01/24 17:40 Proposed Procedures p Esophagogastroduodenoscopy Dr. Dasia Forman Jr, MD Height/Weight Height: 5 ft 3 in Weight: 96.8 kg Allergies Allergy/AdvReac Type Severity Reaction Status Date / Time Penicillins Allergy Unknown Verified 03/01/24 12:56 Medications Home Medications Medication Instructions Recorded Confirmed Last Taken insulin detemir U-100 100 unit/mL 19 unit subcut HS 12/26/23 02/29/24 12/26/23 subcutaneous solution insulin detemir U-100 100 unit/mL 20 unit subcut DAILY 12/26/23 02/29/24 12/25/23 subcutaneous solution prazosin 2 mg capsule 3 mg PO HS 12/26/23 02/29/24 1 Day Ago ~02/04/24 esomeprazole magnesium 40 mg 40 mg PO BID 02/05/24 02/29/24 Unknown capsule,delayed release (Nexium) famotidine 20 mg tablet 40 mg PO BID 02/05/24 02/29/24 Unknown Carafate PO QID 02/29/24 Unknown Invega 02/29/24 Unknown Novolog U-100 Insulin aspart AC 02/29/24 Unknown Valium 10 mg PO BID 02/29/24 02/29/24 Unknown metoprolol tartrate 25 mg PO BID 02/29/24 02/29/24 Unknown Active Medications Generic Name Dose Route Start Last Admin Trade Name Freq PRN Reason Stop Dose Admin Diazepam 5 mg 03/01/24 00:11 03/01/24 00:52 Diazepam 5 Mg/Ml 10ml Vial IV 03/31/24 00:10 5 mg BID PRN Administration Anxiety Pantoprazole Sodium 40 mg in 10 mls @ 5 mls/min 03/01/24 00:11 03/01/24 09:02 Protonix IV 03/31/24 00:10 5 mls/min BID YARED Administration Famotidine 20 mg in 5 mls @ 2.5 mls/min 03/01/24 01:00 03/01/24 02:02 Pepcid 20mg Iv Push IV 03/31/24 00:59 2.5 mls/min Q12H YARED Administration Acetaminophen 1,000 mg in 100 mls @ 400 mls/hr 03/01/24 06:33 03/01/24 09:33 Ofirmev IV 03/04/24 06:32 Infused Q8H PRN Infusion Pain or Fever Insulin Aspart 0 units 03/01/24 01:00 03/01/24 06:36 Insulin Aspart Per Unit Charge SC 03/31/24 00:59 2 units Q6 YARED Administration Insulin Glargine 10 units 03/01/24 00:11 03/01/24 09:02 Lantus Per Unit Charge SQ 03/31/24 00:10 10 units BID YARED Administration NPO Date Last Intake of Fluids: 03/01/24 Time Last Intake of Fluids: 03:00 Last Intake of Fluids Comment: ice chip Date Last Intake of Solids: 02/26/24 Time Last Intake of Solids: 23:59 Exercise / Class Metabolic Activity II 4-5 Yardwork/Stairs/Walk up hill Past Anesthesia History No Hx of Anesthesia Complications and No Family Hx of Anesthesia Complications History of PONV No Hx of PONV and No Hx of Motion Sickness Social History Smoking Status: Smoker, status unknown Do You Dip or Chew Tobacco: No Hx Alcohol Use: No Hx Substance Use: No substance use type: sedatives and prescription drug Physical Exam Vital Signs Last Vital Signs Temp 36.6 C 03/01/24 13:00 Pulse 92 H 03/01/24 13:00 Resp 12 03/01/24 13:00 BP 91/64 L 03/01/24 13:00 Pulse Ox 92 03/01/24 13:00 O2 Del Method Room Air 03/01/24 13:00 Constitutional no acute distress ENMT Mouth: no dentition abnormality Thyromental Distance: > or= 3.5 Finger Breadths Mallampati Class: II Neck normal visual inspection Respiratory normal respiratory effort; no respiratory distress Auscultation: lungs clear to auscultation bilaterally Cardiovascular Rate/Rhythm: regular rate and regular rhythm Heart Sounds: no murmur Musculoskeletal Spine: normal cervical ROM Psychiatric Orientation: alert and oriented x 3 Testing Laboratory Results 03/01/24 06:01 03/01/24 06:16 Hemoglobin A1c 7.8 % (4.5-5.6) H 03/01/24 06:01 Urine Color Yellow 02/29/24 16:25 Urine Appearance Clear (Clear) 02/29/24 16:25 Urine pH 6.5 (4.5-7.5) 02/29/24 16:25 Ur Specific [place] 1.041 (1.000-1.030) H 02/29/24 16:25 Urine Protein Trace (Negative) H 02/29/24 16:25 Urine Glucose (UA) 3+ (Negative) H 02/29/24 16:25 Urine Ketones 4+ (Negative) H 02/29/24 16:25 Urine Nitrite Negative (Negative) 02/29/24 16:25 Ur Leukocyte Esterase Negative (Negative) 02/29/24 16:25 Urine WBC (Auto) 0-5 /hpf (0-5) 02/29/24 16:25 Urine RBC (Auto) 0-2 /hpf (0-2) 02/29/24 16:25 U Hyaline Cast (Auto) 0-2 /lpf (0-2) 02/29/24 16:25 U Epithel Cells (Auto) 3-5 /hpf (0-2) H 02/29/24 16:25 Urine Bacteria (Auto) 1+ (None Seen) H 02/29/24 16:25 Blood Type A Positive 02/29/24 19:59 Antibody Screen NEGATIVE 02/29/24 19:59 02/29/24 16:25 Urine Culture - Preliminary Urine,Clean Catch Pin-point growth present, reincubating. 03/01/24 03/01/24 11:25 06:25 POC Glucose 164 H 206 H Day of Procedure Evaluation. Date of Surgery March 01, 2024 Height/Weight Height: 5 ft 3 in Weight: 96.8 kg Vital Signs Last Vital Signs Temp 36.6 C 03/01/24 13:00 Pulse 92 H 03/01/24 13:00 Resp 12 03/01/24 13:00 BP 91/64 L 03/01/24 13:00 Pulse Ox 92 03/01/24 13:00 O2 Del Method Room Air 03/01/24 13:00 Allergies Allergy/AdvReac Type Severity Reaction Status Date / Time Penicillins Allergy Unknown Verified 03/01/24 12:56 Medications Home Medications Medication Instructions Recorded Confirmed Last Taken insulin detemir U-100 100 unit/mL 19 unit subcut HS 12/26/23 02/29/24 12/26/23 subcutaneous solution insulin detemir U-100 100 unit/mL 20 unit subcut DAILY 12/26/23 02/29/24 12/25/23 subcutaneous solution prazosin 2 mg capsule 3 mg PO HS 12/26/23 02/29/24 1 Day Ago ~02/04/24 esomeprazole magnesium 40 mg 40 mg PO BID 02/05/24 02/29/24 Unknown capsule,delayed release (Nexium) famotidine 20 mg tablet 40 mg PO BID 02/05/24 02/29/24 Unknown Carafate PO QID 02/29/24 Unknown Invega 02/29/24 Unknown Novolog U-100 Insulin aspart AC 02/29/24 Unknown Valium 10 mg PO BID 02/29/24 02/29/24 Unknown metoprolol tartrate 25 mg PO BID 02/29/24 02/29/24 Unknown Active Medications Generic Name Dose Route Start Last Admin Trade Name Freq PRN Reason Stop Dose Admin Diazepam 5 mg 03/01/24 00:11 03/01/24 00:52 Diazepam 5 Mg/Ml 10ml Vial IV 03/31/24 00:10 5 mg BID PRN Administration Anxiety Pantoprazole Sodium 40 mg in 10 mls @ 5 mls/min 03/01/24 00:11 03/01/24 09:02 Protonix IV 03/31/24 00:10 5 mls/min BID YARED Administration Famotidine 20 mg in 5 mls @ 2.5 mls/min 03/01/24 01:00 03/01/24 02:02 Pepcid 20mg Iv Push IV 03/31/24 00:59 2.5 mls/min Q12H YARED Administration Acetaminophen 1,000 mg in 100 mls @ 400 mls/hr 03/01/24 06:33 03/01/24 09:33 Ofirmev IV 03/04/24 06:32 Infused Q8H PRN Infusion Pain or Fever Insulin Aspart 0 units 03/01/24 01:00 03/01/24 06:36 Insulin Aspart Per Unit Charge SC 03/31/24 00:59 2 units Q6 YARED Administration Insulin Glargine 10 units 03/01/24 00:11 03/01/24 09:02 Lantus Per Unit Charge SQ 03/31/24 00:10 10 units BID YARED Administration Past Anesthesia History No Hx of Anesthesia Complications and No Family Hx of Anesthesia Complications History of PONV No Hx of PONV and No Hx of Motion Sickness NPO Date Last Intake of Fluids: 03/01/24 Time Last Intake of Fluids: 03:00 Last Intake of Fluids Comment: ice chip Date Last Intake of Solids: 02/26/24 Time Last Intake of Solids: 23:59 HCG & FBG Results 03/01/24 03/01/24 11:25 06:25 POC Glucose 164 H 206 H Home Medications Home Medications Medication Instructions Recorded Confirmed Last Taken insulin detemir U-100 100 unit/mL 19 unit subcut HS 12/26/23 02/29/24 12/26/23 subcutaneous solution insulin detemir U-100 100 unit/mL 20 unit subcut DAILY 12/26/23 02/29/24 12/25/23 subcutaneous solution prazosin 2 mg capsule 3 mg PO HS 12/26/23 02/29/24 1 Day Ago ~02/04/24 esomeprazole magnesium 40 mg 40 mg PO BID 02/05/24 02/29/24 Unknown capsule,delayed release (Nexium) famotidine 20 mg tablet 40 mg PO BID 02/05/24 02/29/24 Unknown Carafate PO QID 02/29/24 Unknown Invega 02/29/24 Unknown Novolog U-100 Insulin aspart AC 02/29/24 Unknown Valium 10 mg PO BID 02/29/24 02/29/24 Unknown metoprolol tartrate 25 mg PO BID 02/29/24 02/29/24 Unknown Active Medications Generic Name Dose Route Start Last Admin Trade Name Kt PRN Reason Stop Dose Admin Diazepam 5 mg 03/01/24 00:11 03/01/24 00:52 Diazepam 5 Mg/Ml 10ml Vial IV 03/31/24 00:10 5 mg BID PRN Administration Anxiety Pantoprazole Sodium 40 mg in 10 mls @ 5 mls/min 03/01/24 00:11 03/01/24 09:02 Protonix IV 03/31/24 00:10 5 mls/min BID YARED Administration Famotidine 20 mg in 5 mls @ 2.5 mls/min 03/01/24 01:00 03/01/24 02:02 Pepcid 20mg Iv Push IV 03/31/24 00:59 2.5 mls/min Q12H YARED Administration Acetaminophen 1,000 mg in 100 mls @ 400 mls/hr 03/01/24 06:33 03/01/24 09:33 Ofirmev IV 03/04/24 06:32 Infused Q8H PRN Infusion Pain or Fever Insulin Aspart 0 units 03/01/24 01:00 03/01/24 06:36 Insulin Aspart Per Unit Charge SC 03/31/24 00:59 2 units Q6 YARED Administration Insulin Glargine 10 units 03/01/24 00:11 03/01/24 09:02 Lantus Per Unit Charge SQ 03/31/24 00:10 10 units BID YARED Administration Exercise / Class Metabolic Activity Metabolic Activity: II 4-5 Yardwork/Stairs/Walk up hill Physical Exam Constitutional: no acute distress Mouth: no dentition abnormality Thyromental Distance: > or= 3.5 Finger Breadths Mallampati Class: II Neck: + visual inspection normal Respiratory: + respiratory effort normal and + clear to auscultation bilaterally; no respiratory distress Cardiovascular: + regular rate and + regular rhythm; no murmur Musculoskeletal: no limited cervical ROM Psychiatric: + alert and + oriented x 3 ASA ASA3 Proposed Anesthesia Proposed Anesthesia: MAC Risk / Benefits Reviewed With: PT / POA / Parent / Guardian, Accepts Plan and Informed Consent Obtained
--- NOTE | 2024-03-01 13:52 | GI REPORT ---
[facility] Patient: NA KINCAID : 1985 Sex at : Female Age: 39 Years Procedure: Upper GI endoscopy Date: 03/01/2024 Attending Physician: Terrell Forman MD Referring MD: Naima Rivas Md Indications: - Hematemesis Medications: - Monitored Anesthesia Care - Propofol per Anesthesia - See the Anesthesia note for documentation of the administered medications Complications: - No immediate complications. Estimated Blood Loss: - Estimated blood loss: None. Procedure: - ASA Grade Assessment: III - A patient with severe systemic disease. - The egd scope was introduced through the mouth and advanced to the second part of the duodenum. - The upper GI endoscopy was accomplished without difficulty. - The patient tolerated the procedure well. Findings: - LA Grade D (one or more mucosal breaks involving at least 75% of esophageal circumference) esophagitis with no bleeding was found in the upper third of the esophagus. - Circumferential salmon-colored mucosa was present from the inflammation in the proximal esophagus to the ulceration in the distal esophagus. No other visible abnormalities were present. The maximum longitudinal extent of these esophageal mucosal changes was 10 cm in length. - One cratered circumferential esophageal ulcer with stigmata of recent bleeding was found in the lower third of the esophagus. The lesion was 20 mm in largest dimension. This has the appearance of a caustic ingestion perhaps in pill form. Biopsies were taken with a cold forceps for histology. - The examined duodenum was normal. - Multiple dispersed medium erosions with stigmata of recent bleeding were found in the gastric body. These were likely NG induced Impression: - LA Grade D reflux esophagitis with no bleeding. - Herndon-colored mucosa suspicious for long-segment Zapien's esophagus. - Esophageal ulcer with stigmata of recent bleeding. Biopsied. - Normal examined duodenum. - Erosive gastropathy with stigmata of recent bleeding. Recommendation: - Return patient to [facility] for ongoing care. Procedure Code(s): - 34679, Esophagogastroduodenoscopy, flexible, transoral; with biopsy, single or multiple Diagnosis Code(s): - K92.0, Hematemesis - K21.00, Gastro-esophageal reflux disease with esophagitis, without bleeding - K22.11, Ulcer of esophagus with bleeding - K92.2, Gastrointestinal hemorrhage, unspecified - K22.89, Other specified disease of esophagus CPT(R) - 2023 copyright [employer] [place] [employer]. All Rights Reserved. The CPT codes, CCI edits and ICD codes generated are intended as suggestions and were generated based on input data. These codes are preliminary and upon early childhood assistant review may be revised to meet current compliance and payer requirements. The provider is responsible for the final determination of appropriate codes, and modifiers. Dr. Terrell Forman MD This document has been electronically signed. Note Initiated:03/01/2024 Note Completed:03/01/2024 1:[address] Terrell Forman MD This document has been electronically signed. Note Amended:03/01/2024 1:55 PM [id number]
--- NOTE | 2024-03-01 14:24 | Anesthesiology Progress Note ---
Date of Service March 01, 2024 Anesthesia Post Procedure Vital Signs Vital Signs: Temp Pulse Pulse Resp BP BP Pulse Ox 03/01/24 14:04 88 16 129/88 92 03/01/24 13:50 89 16 102/63 96 03/01/24 13:00 36.6 C 92 H 12 91/64 L 92 03/01/24 11:26 36.7 C 85 18 103/64 92 03/01/24 07:27 36.8 C 76 19 102/65 92 03/01/24 03:10 36.6 C 67 18 117/73 98 03/01/24 00:46 104 H 03/01/24 00:30 03/01/24 00:11 03/01/24 00:10 37.1 C 103 H 22 134/89 94 02/29/24 20:00 109 H 22 172/104 H 93 02/29/24 18:09 112 H 24 169/107 H 97 02/29/24 16:14 112 H 23 98 02/29/24 16:10 36.6 C 115 H 18 174/107 H 95 02/29/24 16:09 104 H 24 155/104 H 98 Pulse Ox O2 Del Method O2 Del Method O2 Flow Rate 03/01/24 14:04 Room Air 03/01/24 13:50 Oxymask 8 03/01/24 13:00 Room Air 03/01/24 11:26 Room Air 03/01/24 07:27 Room Air 03/01/24 03:10 Room Air 03/01/24 00:46 03/01/24 00:30 Room Air 03/01/24 00:11 94 Room Air 03/01/24 00:10 Room Air 02/29/24 20:00 Room Air 02/29/24 18:09 Room Air 02/29/24 16:14 Room Air 02/29/24 16:10 Room Air 02/29/24 16:09 Room Air Pain Intensity Generalized: Pain Intensity: 8 Transfer of Care Handoff Completed per policy Notes Mental Status: alert / awake / arousable and participated in evaluation Nausea / Vomiting: adequately controlled Pain: adequately controlled Airway Patency, RR, SpO2: stable & adequate BP & HR: stable & adequate Hydration State: stable & adequate Anesthetic Complications: no major complications apparent and Pt Satisfied with anesthetic care
[2024-03-01] MEDS: fentaNYL citrate PF 100 MCG/2 ML VIAL ONE (14:42)
[2024-03-01] MEDS: PROPOFOL IV EMULSION 10 MG/ML 20 ML VIAL IV ONE (14:43)
[2024-03-01] MEDS: LIDOCAINE 2% 2 ML VIAL/AMP(20MG/ML) INFIL ONE (14:43)
--- NOTE | 2024-03-01 14:58 | Electrocardiogram Report ---
Test Reason : Blood Pressure : */* mmHG Vent. Rate : 113 BPM Atrial Rate : 113 BPM P-R Int : 158 ms QRS Dur : 84 ms QT Int : 334 ms P-R-T Axes : 63 61 56 degrees QTcB Int : 458 ms Sinus tachycardia Possible Left atrial enlargement Borderline ECG When compared with ECG of 04-Feb-2024 22:50, Nonspecific T wave abnormality no longer evident in Anterolateral leads Confirmed by Cheng Huber ([id number]) on 03/01/2024 2:58:23 PM Referred By: REFERRED SELF Confirmed By: Cheng Huber
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
[2024-03-01] MEDS: CHLORASEPTIC (PHENOL) 1.4% SOLN 180 ML BTL MT PRN (16:53)
[2024-03-01] MEDS: clonazePAM 0.5 MG TAB PO PRN (16:55)
[2024-03-01] MEDS: SUCRALFATE 1 GM/10 ML UDC PO SCH (17:22)
[2024-03-01] MEDS: HYDROmorphone INJ 0.5 MG/0.5 ML SYR IV PRN (17:23)
[2024-03-01] MEDS: DOXAZOSIN MESYLATE 1 MG TAB PO SCH (20:29)
[2024-03-01] MEDS: clonazePAM 0.5 MG TAB PO SCH (20:29)
--- NOTE | 2024-03-02 05:05 | Billing Data ---
Date of Service March 02, 2024 Coding Level of Care Code 89286 INT INP/OBS CARE
[2024-03-02 07:18] LABS: Hematocrit (blood only) 28.4 % (37.0-47.0); Hemoglobin 9.5 g/dl (12.0-16.0); Mean Corpuscular Hemoglobin 27.8 pg (25.0-34.0); Mean Corpuscular Hgb Conc 33.5 g/dL (32.0-36.0); Mean Platelet Volume 10.3 fL (9.4-12.4); Platelet Count 190 K/uL (130-400); RDW Standard Deviation 39.2 fL (36.4-46.3); Red Blood Count 3.42 M/uL (4.20-5.40); White Blood Count 6.16 K/ul (4.8-10.8)
[2024-03-02 07:36] LABS: Calcium 7.5 mg/dl (8.6-10.3); Creatinine Clr Calc Pharmacy 137.3 ml/min; Potassium 3.6 mmol/L (3.5-5.1)
[2024-03-02] MEDS: DOXAZosin MESYLATE TAB 2 MG TAB PO SCH (08:28)
--- NOTE | 2024-03-02 10:41 | Pharmacy Report ---
Pharmacy Glycemic Short Note 2 - Date of Service March 02, 2024 - Glycemic Short BSG Results (Last 24 hours): 03/01/24 03/01/24 03/01/24 11:25 15:56 20:23 Glucose POC Glucose 164 H 213 H 190 H 03/02/24 03/02/24 07:02 07:07 Glucose 149 H POC Glucose 149 H OUTPATIENT ANTIDIABETIC REGIMEN: * Insulin Glargine 20 units AM, 19 units PM * Insulin Aspart SSI, range 5-12 units with meal * A1c 7.8% 03/01/24 ASSESSMENT: 03/02 * BSGs above goal yesterday, but fasting this AM is okay. Pt ordered Clear/T1DM diet. Minimal intake of food, will continue current regimen for now. Could reassess once food intake improves. 03/01 * FS is here for treatment of GI bleed, N/V, and esophagitis. Pharmacy consulted to manage her T1DM while inpatient. BSGs high on admission, lowered to 191 this AM. Pt currently NPO, receiving plasmalyte. Concern for hypoglycemia while NPO and ongoing N/V, therefore reduced home dose of glargine by 50%. PLAN FOR INPATIENT GLYCEMIC CONTROL: * Hold outpatient diabetes medications * Basal insulin * Lantus 10 units SQ BID * Bolus insulin * NovoLog per scale ACHS or Q6hrs while NPO * Goal Range: Low 110 mg/dL - High 140 mg/dL * Correction Factor: 45 mg/dL/unit * Nutritional / Prandial insulin per carb ratio of 1 unit per 15 grams CHO consumed
--- NOTE | 2024-03-02 12:54 | Hospitalist Progress Note ---
Date of Service March 02, 2024 Assessment & Plan (1) Esophagitis: Plan: 39-year-old female presenting with intractable N/V and coffee-ground appearance of emesis (02/28); History of GERD, takes carafate, famotidine, nexium; Panic attacks trigger episodes of N/V. Appears to follow with Gareth bearden diagnosed with gastroparesis. - Med record shows recent prescription for doxycycline that was picked up, however patient states she did not take this. Indication for antibiotic use had resolved prior to patient being restarted the treatment - CT A/P: inflammatory or infectious esophagitis with a component of dysmotility--> NG removed - T1DM; consider diabetes related gastroparesis/dysmotility as contributing factor - H/H 11.7/34.2 -> 9.5/28.4; continuing to monitor - IV pepcid, protonix BID - Zofran, Compazine PRN - Continue Carafate po - GI consulted- EGD 03/01--> esophageal ulcer w/ bleeding at the lower third of esophagus, appearance of gastric congestion from likely a pill; dispersed medium erosions of recent bleeding in gastric body likely 2/2 to NG tube - Chloraseptic [place] for sore throat 2/2 NG tube placed; sore throat resolved - Increase diet to full liquids Appreciate GI input and recs (2) Type 1 diabetes: Plan: T1DM; at home Lantus 20U daily, 19 U HS - Hyperglycemic on arrival (277), +ketones, glucose in urine - Not currently meeting criteria for DKA - A1c 7.8% - Pharmacy glycemic management consult; following (3) Depression: Plan: Multiple mental health diagnosed disorders - PTSD, schizoaffective Disorder, Depression, Anxiety - Multiple prior admissions at [facility] - Continue Invega injection as scheduled; no longer taking prazosin or Valium - Patient with passive statements about "losing will to live", denies active suicidal thoughts or plans for suicide - Would still like to be considered for inpatient treatment following this discharge - Psych consulted- 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 Continue clonazepam 0.5 mg ODT twice daily, as well as daily, as needed, for breakthrough anxiety Appreciate psych input and recs (4) Hypocalcemia: Plan: calcium level low, albumin normal start po calcium supplement check Vit D levels in AM Plan Tachycardia - Takes metoprolol succinate 25mg BID at home; may continue on this medication if tolerating oral; can switch back to IV if medically necessary Dispo: Pending clinical improvement and GI recs, downgrade off tele VTE Prophylaxis: hold in setting of coffee ground emesis; SCDs Code Status: Full Code Admission and Anticipated Discharge Date Admission Date: February 29, 2024 Supervising Physician Co-Signing Physician Notes Physician Claim Adjuster Supervision note: I have not personally seen and examined the patient, but discussed and verified the benson points of the history and physical along with the plan with MATTHEW Rae with the following exceptions and/or additions: None Subjective Pt is laying in bed at time of visit. States that she is still experiencing significant abdominal pain mainly in the lower abdomen that is described as sharp in nature and only relieved when pain medications are utilized, but no nausea/vomiting. Sore throat has improved. Denies chest pain, shortness of breath, diarrhea/constipation, headache, numbness/tingling. No new concerns from nursing. Telemetry: NSR, HR 60s Review of Systems Review of Systems: All systems reviewed & are unremarkable except as noted in Subjective Physical Exam Physical Exam: General: NAD Skin: Warm and dry Head: Normocephalic, atraumatic Eyes: PERRL, conjunctivae clear EENT: NG tube removed Neck: Supple, no LAD; no JVD Cardio: RRR, no M/G/R, S1 and S2 normal Resp: Chest wall symmetric, normal respiratory effort; No respiratory distress, Lungs CTA in all lobes bilaterally, no wheezes, rales, or rhonchi Abdomen: Soft, nontender; no distention; No masses or hepatosplenomegaly MSK: No deformities; Pulses palpable and equal; No edema. Neuro: Awake, alert Psych: Appropriate mood and affect Results & Data Results & Data Vital Signs (Past 12 Hours) Vital Signs Temp Pulse Pulse Resp BP Pulse Ox O2 Del Method 03/02/24 11:06 36.9 C 66 16 99/65 L 93 Room Air 03/02/24 08:00 Room Air 03/02/24 07:30 36.8 C 76 18 100/65 93 Room Air 03/02/24 07:00 62 03/02/24 02:53 36.9 C 70 18 95/61 L 92 Room Air Laboratory Results Reviewed CBC and BMP PG Care Time/CCT Total # of Minutes Spent Total Time Spent with Patient: Total time spent is greater than 50% in coordination of care (as documented) at patient's floor/unit and/or counseling patient: Coding Level of Care Code 19775 SUB INP/OBS CARE 2/35MIN Diagnoses Esophagitis K20.90 Type 1 diabetes E10.9 Diabetes mellitus complication status: without complication Depression F32.A Hypocalcemia E83.51 Time Spent (min) 45 (2) Type 1 diabetes Diabetes mellitus complication status: without complication Qualified Code(s): E10.9 - Type 1 diabetes mellitus without complications
--- NOTE | 2024-03-02 13:02 | Gastroenterology Progress Note ---
Date of Service March 02, 2024 Assessment & Plan (1) Esophagitis: Plan: -Continue Protonix 40 mg BID -Continue Carafate 1 gm QID before meals and at bedtime -Patient wishes to continue her care with [facility] Purvis due to her geographic proximity to their office. -Patient actively working with psych to minimize the anxiety/panic issues contributing to her self-inducing episodes of emesis. Admission and Anticipated Discharge Date Admission Date: February 29, 2024 Supervising Physician Co-Signing Physician Notes I saw and examined this patient with our nurse practitioner and agree with her assessment and plan. Clinically improving. Biopsies taken were benign inflammation. Continue proton pump inhibitor and Carafate. She can follow-up as an outpatient. Subjective Patient is a 39 yo female with coffee ground emesis. She underwent an EGD on 03/01/[address] Forman. Findings included Grade D esophagitis with ulceration. Gastric erosions from NG tube were noted. Biopsies of the esophagus indicated Patient notes to me today that she has not had further emesis. She notes that she is embarrassed to admit, however she notes that she induces vomiting with her finger often. She feels like it is related to her underlying panic/anxiety issues. She is working with psychiatry to prevent this moving forward. H/H 9.5/28.4. She is on Protonix & Carafate. She notes she is an existing patient of [facility] and would like to resume her care with them on follow-up. Review of Systems Gastrointestinal: no abdominal pain, no nausea and no vomiting Physical Exam Constitutional: well developed Respiratory: normal respiratory effort Cardiovascular: Rate/Rhythm: regular rate Gastrointestinal (Abdomen): normal bowel sounds, soft, nontender, no hepatosplenomegaly Psychiatric: Orientation: alert and oriented x 3 Results & Data Results & Data Vital Signs (Past 12 Hours) Vital Signs Temp Pulse Pulse Resp BP Pulse Ox O2 Del Method 03/02/24 11:06 36.9 C 66 16 99/65 L 93 Room Air 03/02/24 08:00 Room Air 03/02/24 07:30 36.8 C 76 18 100/65 93 Room Air 03/02/24 07:00 62 03/02/24 02:53 36.9 C 70 18 95/61 L 92 Room Air PG Care Time/CCT Total # of Minutes Spent Total Time Spent with Patient: Total time spent is greater than 50% in coordination of care (as documented) at patient's floor/unit and/or counseling patient: Coding Level of Care Code 68261 SUB INP/OBS CARE 50MIN Diagnoses Esophagitis K20.90
[2024-03-02] MEDS ORDERED: ONDANSETRON 4 MG OD TAB PO PRN (18:28)
[2024-03-02] MEDS: oxyCODONE HCL IR 5 MG TAB (IMMEDIATE RELEASE) PO PRN (19:29)
[2024-03-02] MEDS: CALCIUM CARBONATE 500 MG CHEWABLE TAB PO ONE (19:29)
[2024-03-02] MEDS: PANTOprazole 40 MG TAB PO SCH (20:01)
[2024-03-02] MEDS: METOPROLOL TARTRATE 25 MG TAB PO SCH (20:01)
[2024-03-02] MEDS: FAMOTIDINE 40 MG TABLET PO SCH (20:02)
[2024-03-02] MEDS: PROCHLORPERAZINE MALEATE 5 MG TAB PO PRN (23:49)
[2024-03-03 08:18] LABS: Hematocrit (blood only) 29.8 % (37.0-47.0); Mean Corpuscular Hemoglobin 28.2 pg (25.0-34.0); Mean Corpuscular Hgb Conc 33.6 g/dL (32.0-36.0); Mean Corpuscular Volume 84.2 fL (80.0-100.0); Platelet Count 206 K/uL (130-400); RDW Coefficient of Variation 12.8 % (11.5-14.5); RDW Standard Deviation 38.7 fL (36.4-46.3); Red Blood Count 3.54 M/uL (4.20-5.40); White Blood Count 5.08 K/ul (4.8-10.8)
[2024-03-03 08:33] LABS: BUN Creatinine Ratio 9.8 (10-20); Calcium 8.2 mg/dl (8.6-10.3); Creatinine Clr Calc Pharmacy 140.3 ml/min; Potassium 3.6 mmol/L (3.5-5.1)
[2024-03-03] MEDS: CALCIUM CARBONATE 500 MG CHEWABLE TAB PO SCH (08:52)
[2024-03-03] MEDS ORDERED: LANTUS PER UNIT CHARGE SC ONE (09:15)
[2024-03-03] MEDS: CHOLECALCIFEROL 25 MCG (1000 UNITS) TAB PO SCH (11:09)
[2024-03-03] MEDS: LANTUS PER UNIT CHARGE SC ONE (12:05)
--- NOTE | 2024-03-03 14:57 | Hospitalist Progress Note ---
Date of Service March 03, 2024 Assessment & Plan (1) Esophagitis: Plan: 39-year-old female presenting with intractable N/V and coffee-ground appearance of emesis (02/28); History of GERD, takes carafate, famotidine, nexium; Panic attacks trigger episodes of N/V. Appears to follow with Gareth bearden diagnosed with gastroparesis. - Med record shows recent prescription for doxycycline that was picked up, however patient states she did not take this. Indication for antibiotic use had resolved prior to patient being restarted the treatment - CT A/P: inflammatory or infectious esophagitis with a component of dysmotility--> NGT initially in place overnight and then removed after EGD -GI consulted- EGD 03/01--> esophageal ulcer w/ bleeding at the lower third of esophagus, appearance of gastric congestion from likely a pill; dispersed medium erosions of recent bleeding in gastric body likely 2/2 to NG tube - T1DM; consider diabetes related gastroparesis/dysmotility as contributing factor to recurrent nausea/vomiting -Hemoglobin baseline 13.3 and dropped to 11.7 on admission and then further down to 9.5 from GI bleeding-improved today at 10.0 -Continue pepcid, protonix BID, Carafate -Continue Zofran, Compazine PRN -Advance diet to low fiber Appreciate GI input and recs -She continues on oxycodone as needed for pain (2) Type 1 diabetes: Plan: home Lantus 20U daily, 19 U HS - A1c 7.8% - Pharmacy glycemic management consult; following (3) Depression: Plan: Multiple mental health diagnosed disorders - PTSD, schizoaffective Disorder, Depression, Anxiety - Multiple prior admissions at inpatient [facility] facilities [facility] - Continue Invega injection as scheduled; psychiatry here recommended switching prazosin to longer acting doxazosin twice daily, and switching home Valium to clonazepam - Patient with passive statements about "losing will to live", denies active suicidal thoughts or plans for suicide and is not meeting criteria for inpatient psychiatry stay Started doxazosin 3 mg at bedtime and 2 mg daily. Started clonazepam 0.5 mg ODT twice daily, as well as daily, as needed, for breakthrough anxiety Stable Appreciate psych input and recs (4) Hypocalcemia: Plan: calcium level low, albumin normal started po calcium supplement and improved today to 8.2 Vitamin D level checked and very low at 12-start vitamin D3 2000 units once daily Plan Tachycardia -continue metoprolol 25 Mg p.o. twice daily Dispo: Improving, plan to discharge tomorrow if tolerating low fiber diet. Downgrade from telemetry to medical/surgical unit VTE Prophylaxis: hold anticoagulation in setting of coffee ground emesis; SCDs Code Status: Full Code Admission and Anticipated Discharge Date Admission Date: March 02, 2024 Subjective Patient reports ongoing pain in the upper abdomen with eating. Otherwise, no complaints. Telemetry with sinus bradycardia and normal sinus rhythm with rates in the 50s to 60s Physical Exam Constitutional: WD/WN, vitals as above + morbidly obese Respiratory: normal respiratory effort, lungs clear to auscultation Cardiovascular: RRR, no murmur, no edema Gastrointestinal (Abdomen): Inspection/Auscultation: normal bowel sounds; abdomen not distended Percussion/Palpation: + abdomen tender (Mild in epigastric region) and abdomen soft; no guarding Psychiatric: A+Ox3, euthymic affect Results & Data Results & Data Vital Signs (Past 12 Hours) Vital Signs Temp Pulse Resp BP Pulse Ox O2 Del Method 03/03/24 11:55 36.8 C 18 115/78 93 Room Air 03/03/24 07:20 36.7 C 68 18 117/79 95 Room Air Laboratory Results CBC, BMP, vitamin D level reviewed PG Care Time/CCT Total # of Minutes Spent Total Time Spent with Patient: Total time spent is greater than 50% in coordination of care (as documented) at patient's floor/unit and/or counseling patient: Coding Level of Care Code 27885 SUB INP/OBS CARE 2/35MIN Diagnoses Esophagitis K20.90 Type 1 diabetes E10.9 Diabetes mellitus complication status: without complication Depression F32.A Hypocalcemia E83.51 (2) Type 1 diabetes Diabetes mellitus complication status: without complication Qualified Co de(s): E10.9 - Type 1 diabetes mellitus without complications
[2024-03-03 15:02] LABS: 7-Aminoclonaz, Confirm NEGATIVE ng/mL (<25); Hydro-Alp Ur, GC/MS NEGATIVE ng/mL (<25); Hydroxyethylflurazepam, Conf NEGATIVE ng/mL (<50); Hydroxymidazolam Ur, GC/MS NEGATIVE ng/mL (<50); Hydroxytriazolam NEGATIVE ng/mL (<50); Lorazepam, Ur GC/MS 357 ng/mL (<50); Nordiazepam, Confirm 817 ng/mL (<50); Oxazepam Ur, GC/MS 1330 ng/mL (<50); Temazepam, Confirm 1400 ng/mL (<50)
[2024-03-03] MEDS: ACETAMINOPHEN 325 MG TAB PO PRN (15:08)
[2024-03-03] MEDS: TRINTELLIX: ORDER AWAITING ACTION SCH (16:50)
[2024-03-03 18:34] VITALS: TEMP 98.1
[2024-03-03 20:34] VITALS: RESP 16
[2024-03-03] MEDS ORDERED: LANTUS PER UNIT CHARGE SC SCH (21:00)
[2024-03-03] MEDS: ATORVASTATIN 40 MG TAB PO SCH (21:02)
[2024-03-03] MEDS: MIRTAZAPINE TAB 15 MG TAB PO SCH (21:02)
[2024-03-04 07:16] VITALS: O2SAT 99
[2024-03-04] MEDS ORDERED: LANTUS PER UNIT CHARGE SQ SCH (09:00)
[2024-03-04] MEDS: LANTUS PER UNIT CHARGE SC ONE (09:27)
--- NOTE | 2024-03-04 10:15 | Discharge Summary ---
Discharge Summary Date of Service March 04, 2024 Principal Dx & Hospital Course #1 = Principal Diagnosis (1) Esophagitis: 39-year-old female presenting with intractable N/V and coffee-ground appearance of emesis (02/28); History of GERD, takes carafate, famotidine, nexium; Panic attacks trigger episodes of N/V. Appears to follow with Gareth bearden diagnosed with gastroparesis. - Med record shows recent prescription for doxycycline that was picked up, however patient states she did not take this. Indication for antibiotic use had resolved prior to patient being restarted the treatment - CT A/P: inflammatory or infectious esophagitis with a component of dysmotility--> NGT initially in place overnight and then removed after EGD -GI consulted- EGD 03/01--> esophageal ulcer w/ bleeding at the lower third of esophagus, appearance of gastric congestion from likely a pill; dispersed medium erosions of recent bleeding in gastric body likely 2/2 to NG tube - T1DM; consider diabetes related gastroparesis/dysmotility as contributing factor to recurrent nausea/vomiting -Hemoglobin baseline 13.3 and dropped to 11.7 on admission and then further down to 9.5 from GI bleeding-improved then to 10.0 -check CBC in 1 week as outpt with PCP -Continue pepcid, protonix BID, Carafate on discharge -received Zofran, Compazine PRN -tolerating low fiber diet and should stay on this for 2 weeks post discharge Appreciate GI input and recs-f/u as outpt with G[facility] Bearden -She continues on oxycodone as needed for pain-gave #10 tabs on discharge (2) Type 1 diabetes: home Lantus 20U daily, 19 U HS - A1c 7.8% - Pharmacy glycemic management consult appreciated, no acute issues (3) Depression: Multiple mental health diagnosed disorders - PTSD, schizoaffective Disorder, Depression, Anxiety - Multiple prior admissions at inpatient psychiatric facilities --> [facility] most recently - Continue Invega injection as scheduled; psychiatry here recommended switching prazosin to longer acting doxazosin twice daily, and switching home Valium to clonazepam - Patient with passive statements about "losing will to live", denies active suicidal thoughts or plans for suicide and is not meeting criteria for inpatient psychiatry stay Started doxazosin 3 mg at bedtime and 2 mg daily. Started clonazepam 0.5 mg ODT twice daily, as well as daily as needed, for breakthrough anxiety Started Remeron here which was prescribed as outpt and she had not yet started Plan is also to start Trintellix once prior auth approved-this is already in process Appreciate psych input and recs F/u with outpt Psych provider as planned after discharge (4) Hypocalcemia: calcium level low, albumin normal started po calcium supplement and improved to 8.2 Vitamin D level checked and very low at 12-start vitamin D3 2000 units once daily f/u with PCP Plan Tachycardia -continue metoprolol 25 Mg p.o. twice daily Dispo: Improving, plan to discharge to home today VTE Prophylaxis: held anticoagulation in setting of coffee ground emesis; SCDs Code Status: Full Code Notes For Next Care Provider Check CBC in 1 week Close f/u with Psychiatry needed Medication Changes From Visit see list Admission HPI Per Admitting Provider Nicole SaundersDeanna Moncada is a 39 year-old female who presented to the ED due to concerns of intractable nausea and vomiting. Past medical history is significant for type 1 diabetes mellitus, PTSD, schizoaffective disorder, anxiety/depression. Patient states that a few days ago she had a panic attack that flared her PTSD, she started having episodes of nausea and vomiting at this time. States she often has some nausea/vomiting during panic attacks, but this is now ongoing for about 3 days and has not been able to keep any food or liquids down. Today she started to notice dark/coffee ground appearing material in her emesis. Endorses elevated blood sugars 200+ since arrival, does not have an insulin pump that she is using currently. Patient states she "Doesn't want to be around anymore", when asked what she means by this, patient states she "doesn't want to deal with PTSD/panic attacks anymore" as they have been getting much worse for her. Patient endorses prior suicide attempts in the past, but denies any current plan. Patient states that she was at inpatient psych last month, thinks she may need to go back again soon. ED Course: -CBC, CMP -UA -CT A/P, chest xray Discharge Exam Constitutional WD/WN, vitals as above + morbidly obese Respiratory normal respiratory effort, lungs clear to auscultation Cardiovascular RRR, no murmur, no edema Gastrointestinal (Abdomen) normal bowel sounds, soft, nontender, no hepatosplenomegaly Psychiatric A+Ox3, euthymic affect Discharge Plan Discharge Items Patient Disposition: Home - Self-Care Reason For Visit: Hematemesis Discharge Diagnosis: Esophagitis with esophageal ulcer GI Bleeding Acute blood loss anemia Vitamin D deficiency with hypocalcemia Condition on Discharge: Good Activity: Resume your previous activity Non-emergency contact: Primary Care Provider and Psychiatrist Call non-emergency contact if: you have any medication questions, your symptoms worsen and your pain is not controlled Follow-up/Referrals: Bekah Guillermo [Other] Diet: Low Fiber Diet Comment: low fiber/soft diet x 2 weeks, then regular Addtl Attending Provider Instructions: You were admitted with vomiting blood from esophagitis and a bleeding ulcer in your esophagus. Please continue the antacids and carafate as prescribed. You can take oxycodone as needed for moderate-severe pain, but try not to take this very often as it can become habit forming. Your Nexium is being changed to Protonix to see if this helps more than the Nexium. Because of the bleeding you had, your blood count dropped slightly. Please have your PCP check your blood count in 1 week. Your medications were changed by the Psychiatrist here in an effort to help prevent vomiting. Your prazosin was changed to a longer acting medication called doxazosin, and your valium was changed to a longer acting clonazepam. You did also start on the Remeron here as well. You can take an extra dose of the rapid dissolving clonazepam as needed for panic attacks. Please follow up with G[facility] Bearden and with your Psychiatrist as scheduled. Your calcium and vitamin D levels were low-you were started on a vitamin D supplement-this is an over the counter medication you can buy at the drugstore. Pending Studies at Discharge: No Stand-Alone Forms: My [facility] [employer], Smoking Cessation Medications and DC Order Prescriptions: New doxazosin 2 mg Tablet 2 mg PO BID Qty: 75 0RF Rx Instructions: Take 2mg qAM and 3mg (1.5 tablets) at bedtime clonazepam 0.5 mg tablet,disintegrating 0.5 mg PO BID Qty: 70 0RF Rx Instructions: can take an extra 0.5mg once daily prn panic attack oxycodone 5 mg Tablet 5 mg PO BID PRN (Reason: moderate-severe pain) Qty: 10 0RF pantoprazole 40 mg Tablet,Delayed Release (Dr/Ec) 40 mg PO BID Qty: 60 0RF cholecalciferol (vitamin D3) 25 mcg (1,000 unit) Capsule 50 mcg PO QAM Qty: 60 0RF Continued Carafate 1 g PO QID metoprolol tartrate 25 mg tablet 25 mg PO BID atorvastatin 40 mg tablet 40 mg PO HS furosemide 20 mg tablet 20 mg PO DAILY PRN (Reason: Swelling) insulin aspart U-100 100 unit/mL (3 mL) insulin pen Trintellix 5 mg tablet 5 mg PO DAILY mirtazapine [Remeron] 15 mg tablet 15 mg PO HS Invega Sustenna 234 mg/1.5 mL syringe 234 mg IM UD Rx Instructions: Q28 days - Due on 03/15/2024 insulin detemir U-100 100 unit/mL Solution 19 unit SUBCUT HS insulin detemir U-100 100 unit/mL Solution 20 unit SUBCUT DAILY Rx Instructions: lantus famotidine 20 mg tablet 40 mg PO BID Discontinued esomeprazole magnesium [Nexium] 40 mg capsule,delayed release(DR/EC) 40 mg PO BID Discharge Orders: Discharge Order (Routine); Ordered 03/04/24 Ordered By: Naima Lim/Other Patient Handouts: Managing Type 1 Diabetes Admission Data Admit Date/Time: 03/02/24 12:48 Attending Provider: Naima Rivas Admit Provider: Nani Coates Primary Care Provider: Bekah Guillermo Other Providers: Baldo Syed; Terrell Forman Jr; Karolina Chau; Fazal Little; Frida Gibson; Bessie Garcia; Duke Levine; Maxine Carrizales Other Interventions: Discharge Summary Assessment (RN) Last Done: 03/01/24 14:15 Hospital Stay Data Consultations 02/29/24 21:38 ED Decision to Admit Stat 03/01/24 00:11 Consult Gastroenterology Routine 03/01/24 08:27 Consult Psychiatry Routine Procedures Performed Operation Date: 03/01/24 17:40 Actual Procedures p EGD Biopsy Cytology(Not Applicable) - Terrell Forman Jr, MD Diagnostic Imagining Performed 02/29/24 18:59 CT Abd and Pelvis [CT abd pelvis IV con only] Stat Pending Results Patient Have Any Pending Studies at Discharge: No Discharge Instructions Given to Patient (Per Discharging Provider) You were admitted with vomiting blood from esophagitis and a bleeding ulcer in your esophagus. Please continue the antacids and carafate as prescribed. You can take oxycodone as needed for moderate-severe pain, but try not to take this very often as it can become habit forming. Your Nexium is being changed to Protonix to see if this helps more than the Nexium. Because of the bleeding you had, your blood count dropped slightly. Please have your PCP check your blood count in 1 week. Your medications were changed by the Psychiatrist here in an effort to help prevent vomiting. Your prazosin was changed to a longer acting medication called doxazosin, and your valium was changed to a longer acting clonazepam. You did also start on the Remeron here as well. You can take an extra dose of the rapid dissolving clonazepam as needed for panic attacks. Please follow up with Gareth Bearden and with your Psychiatrist as scheduled. Your calcium and vitamin D levels were low-you were started on a vitamin D supplement-this is an over the counter medication you can buy at the drugstore. Total Time Total Time Spent Total Time Spent (In Minutes): 35 min Total Time Includes: Examination of the Patient, Discharge Planning and Medication Reconciliation Coding Level of Care Code 36222 INP/OBS DISCH >30 MIN Diagnoses Esophagitis K20.90 Type 1 diabetes E10.9 Diabetes mellitus complication status: without complication Depression F32.A Hypocalcemia E83.51
[2024-03-04 11:33] VITALS: BP 93/60; PULSE 60
[2024-03-04] MEDS ORDERED: LANTUS PER UNIT CHARGE SC ONE (11:45)
== END 2024-03-04 11:45 | disposition home or self-care (01) | DRG 381 ==
LOC: ED 16:08 → 2S 16:08 → SUATTDRO 22:46 → 2S 23:34 → 3E 03-03 18:04

== ENCOUNTER 2024-03-08 05:24 | Observation (INO) ==
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
[2024-03-08] MEDS: DICYCLOMINE HCL 10 MG/ML 2 ML AMP/VIAL IM ONE (06:01)
[2024-03-08] MEDS: FAMOTIDINE 20MG IV PUSH 20 MG/5 ML SYR IV STA (06:19)
[2024-03-08] MEDS: DROPERIDOL 5 MG/2 ML VIAL IV STA (06:20)
[2024-03-08] MEDS: SODIUM CHLORIDE 0.9% 1,000 ML IV ONE (06:20)
[2024-03-08 06:31] LABS: Amphetamines+Metham, Urine Neg (Neg); Barbiturates, Urine Neg (Neg); Benzodiazepine, Urine Pos (Neg); Cocaine, Urine Neg (Neg); Fentanyl, Urine Neg (Neg); MDMA (Ecstacy), Urine Neg (Neg); Marijuana, Urine Neg (Neg); Methadone, Urine Neg (Neg); Opiate, Urine Neg (Neg); Phencyclidine, Urine Neg (Neg)
[2024-03-08 06:34] LABS: Appearance Urine Clear (Clear); Bacteria Urine Automated None Seen (None Seen); Bilirubin Urine Negative (Negative); Blood Urine 2+ (Negative); Cast Urine Automated 0-2 /lpf (0-2); Color Urine Yellow; Epithelial Cell Urine Auto 0-2 /hpf (0-2); Glucose Urine UA 3+ (Negative); Ketones Urine 2+ (Negative); Leukocyte Esterase Urine Negative (Negative); Nitrite Urine Negative (Negative); Protein Urine Negative (Negative); Specific Gravity Urine 1.025 (1.000-1.030); Urobilinogen Urine Negative (Negative); WBC Urine Automated 0-5 /hpf (0-5)
[2024-03-08 06:41] LABS: Albumin Level 3.9 gm/dl (3.4-5.0); Bilirubin,Total 0.5 mg/dl (0.2-1.0); Calcium 8.5 mg/dl (8.6-10.3); Potassium 4.3 mmol/L (3.5-5.1)
[2024-03-08 06:44] LABS: Basophils # (auto) 0.02 K/uL (0.00-0.20); Basophils % (auto) 0.4 %; Eosinophils # (auto) 0.01 K/uL (0.00-0.50); Eosinophils % (auto) 0.2 %; Hematocrit (blood only) 33.3 % (37.0-47.0); Hemoglobin 11.4 g/dl (12.0-16.0); Immature Granulocytes # (auto) 0.02 K/uL (0.01-0.20); Immature Granulocytes % (auto) 0.4 %; Lymphocytes # (auto) 0.69 K/uL (1.20-3.40); Lymphocytes % (auto) 14.6 %; Mean Corpuscular Hemoglobin 27.9 pg (25.0-34.0); Mean Corpuscular Hgb Conc 34.2 g/dL (32.0-36.0); Mean Corpuscular Volume 81.4 fL (80.0-100.0); Mean Platelet Volume 11.2 fL (9.4-12.4); Monocytes % (auto) 4.2 %; Neutrophils % (auto) 80.2 %; Platelet Count 201 K/uL (130-400); RDW Coefficient of Variation 12.9 % (11.5-14.5); RDW Standard Deviation 37.9 fL (36.4-46.3); Red Blood Count 4.09 M/uL (4.20-5.40); White Blood Count 4.74 K/ul (4.8-10.8)
[2024-03-08] MEDS: OPTIRAY 320 100ml IV ONE (06:50)
[2024-03-08 06:54] LABS: Pregnancy Test, Serum Negative (Negative)
[2024-03-08 06:56] LABS: Albumin Globulin Ratio 1.2 (0.9-2); BUN Creatinine Ratio 11.6 (10-20); Globulin 3.2 gm/dl (2.5-4.0); Total Protein 7.1 gm/dl (6.0-8.3)
--- NOTE | 2024-03-08 07:07 | Emergency Department Note ---
ED Visit Note Patient case signed out to me at 0655 on 03/08/2024 from Francie Rae PA-C. Please refer to her documentation regarding patient visit up until point of signout. Patient presents for evaluation of vomiting. Per review of medicines administered patient received dicyclomine, droperidol, famotidine, IV fluids. Patient also underwent CT imaging of the abdomen/pelvis. Currently waiting on radiology formal read. Laboratory studies reveal decreased WBC, RBC, hemoglobin and hematocrit hemoglobin is stable. No emergent metabolic disturbance but will note hyperglycemia 347. Lipase normal. hCG negative. Urinalysis reveals some blood, glucose and ketones without evidence of infection. Urine drug screen is positive for benzodiazepines. The patient's alcohol level was undetectable. The patient was evaluated at time of signout. She just returned from the CT scan suite. She did have some vomiting upon my assessment and is sitting upright in the bed vomiting into an emesis bag. No evidence of blood in the vomit. CT imaging as below. I did review the patient's recent hospitalization. She did undergo EGD. This was dated 03/04/2024. This did show LA grade D reflux esophagitis with no bleeding. [place]-colored mucosa suspicious for long segment Zapien's esophagus. Esophageal ulcer with stigmata of recent bleeding. This was bi opsied. The commented on normal examined duodenum. There is also note of erosive gastropathy with stigmata of recent bleeding. At this time noting the patient's ongoing vomiting and pain we will proceed with further evaluation and management in the inpatient setting. Case discussed with the hospitalist service. Please refer to further documentation regarding her stay. CT SCAN OF THE ABDOMEN AND PELVIS WITH IV CONTRAST CLINICAL HISTORY: Generalized abdominal pains. COMPARISON STUDY: Abdominal CT dated 02/29/2024. TECHNIQUE: Following the IV administration of 94 cc of Optiray 320, CT scan of the abdomen and pelvis is performed from the lung bases to the proximal femora. Images are reviewed in the axial, sagittal, and coronal planes. IV contrast was administered without complication. A dose lowering technique was utilized adhering to the principles of ALARA. CT DOSE: 1519.3 mGy.cm FINDINGS: Lung bases: The heart is normal in size and without pericardial effusion. There are trace pleural effusions with dependent atelectasis. There is a small hiatal hernia. The distal esophagus appears mildly thick walled. Liver: The contrast-enhanced liver is normal in size, contour, and attenuation. There is no intrahepatic biliary ductal dilatation. The hepatic veins and portal veins are patent. Gallbladder: Surgically absent noting clips in the gallbladder fossa. Spleen: Normal in size and attenuation. Pancreas: Unremarkable. Adrenal glands: Unremarkable. Kidneys: The contrast enhanced kidneys are normal in size and without hydronephrosis. The kidneys enhance symmetrically. Abdominal vasculature: The abdominal aorta is normal in course and caliber. There is atherosclerotic calcification of the iliac arteries. Contrast opacification of the right iliac vein is likely related to the lower extremity injection site. Bowel: No bowel obstruction is seen. There is mild to moderate colonic fecal retention. The appendix is not identified and reported surgically absent. Peritoneum: There is no intraperitoneal free air or abdominal ascites. There is laxity of the ventral abdominal wall with diastases of the rectus musculature. Lymphadenopathy: None. Pelvic viscera: The bladder, uterus, and adnexa are normal as visualized. Skeletal structures: No lytic or blastic lesions are seen. Mild sclerotic change is seen in the sacroiliac joints. There is a minimal chronic compression deformity of T10. Limbus vertebra is incidentally noted in L3. IMPRESSION: 1. No acute infectious or inflammatory findings are identified in the abdomen or pelvis. 2. Trace pleural effusions. 3. The wall of the distal esophagus appears mildly thickened. Correlate clinically for evidence of esophagitis. 4. Additional findings as above. .
--- NOTE | 2024-03-08 07:16 | CT Scan Report ---
CT SCAN OF THE ABDOMEN AND PELVIS WITH IV CONTRAST CLINICAL HISTORY: Generalized abdominal pains. COMPARISON STUDY: Abdominal CT dated 02/29/2024. TECHNIQUE: Following the IV administration of 94 cc of Optiray 320, CT scan of the abdomen and pelvi s is performed from the lung bases to the proximal femora. Images are reviewed in the axial, sagittal , and coronal planes. IV contrast was administered without complication. A dose lowering technique wa s utilized adhering to the principles of ALARA. CT DOSE: 1519.3 mGy.cm FINDINGS: Lung bases: The heart is normal in size and without pericardial effusion. There are trace pleural eff usions with dependent atelectasis. There is a small hiatal hernia. The distal esophagus appears mildl y thick walled. Liver: The contrast-enhanced liver is normal in size, contour, and attenuation. There is no intrahepa tic biliary ductal dilatation. The hepatic veins and portal veins are patent. Gallbladder: Surgically absent noting clips in the gallbladder fossa. Spleen: Normal in size and attenuation. Pancreas: Unremarkable. Adrenal glands: Unremarkable. Kidneys: The contrast enhanced kidneys are normal in size and without hydronephrosis. The kidneys enh ance symmetrically. Abdominal vasculature: The abdominal aorta is normal in course and caliber. There is atherosclerotic calcification of the iliac arteries. Contrast opacification of the right iliac vein is likely related to the lower extremity injection site. Bowel: No bowel obstruction is seen. There is mild to moderate colonic fecal retention. The appendix is not identified and reported surgically absent. Peritoneum: There is no intraperitoneal free air or abdominal ascites. There is laxity of the ventral abdominal wall with diastases of the rectus musculature. Lymphadenopathy: None. Pelvic viscera: The bladder, uterus, and adnexa are normal as visualized. Skeletal structures: No lytic or blastic lesions are seen. Mild sclerotic change is seen in the sacro iliac joints. There is a minimal chronic compression deformity of T10. Limbus vertebra is incidentall y noted in L3. IMPRESSION: 1. No acute infectious or inflammatory findings are identified in the abdomen or pelvis. 2. Trace pleural effusions. 3. The wall of the distal esophagus appears mildly thickened. Correlate clinically for evidence of es ophagitis. 4. Additional findings as above. ACT 112: Negative or not required by law. Electronically signed by: Duy Marcus M.D. 03/08/2024 7:13 AM
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
[2024-03-08] MEDS ORDERED: GLUCAGON FOR INJ 1 MG VIAL SQ PRN (09:03)
[2024-03-08] MEDS ORDERED: ACETAMINOPHEN 325 MG TAB PO PRN (09:03)
[2024-03-08] MEDS ORDERED: GLUCOSE 10 TAB/TUBE PO PRN (09:03)
[2024-03-08] MEDS ORDERED: MELATONIN 3 MG TAB PO PRN (09:03)
[2024-03-08] MEDS ORDERED: CARBOHYDRATES FOR HYPOGLYCEMIA PO PRN (09:03)
[2024-03-08] MEDS ORDERED: PHARMACY GLYCEMIC MGMT CONSULT PRN (09:03)
[2024-03-08] MEDS ORDERED: GLUCOSE 40% GEL 15 GM TUBE PO PRN (09:03)
[2024-03-08] MEDS ORDERED: DEXTROSE 50% 50 ML SYRINGE IV PRN (09:03)
[2024-03-08] MEDS: ONDANSETRON INJ 2 MG/ML 2 ML VIAL IV PRN (09:56)
[2024-03-08] MEDS: PANTOprazole 40 MG/10 ML SYR IV ONE (10:28)
[2024-03-08] MEDS ORDERED: INSULIN GLARGINE 100 UNIT/ML VIAL SC ONE (11:00)
[2024-03-08] MEDS: ENOXAPARIN INJ 40 MG/0.4 ML SYR SQ SCH (12:12)
[2024-03-08] MEDS: LANTUS PER UNIT CHARGE SC ONE (12:12)
[2024-03-08] MEDS: INSULIN ASPART PER UNIT CHARGE SC SCH (12:19)
[2024-03-08] MEDS ORDERED: FUROSEMIDE 20 MG TAB PO PRN (12:40)
[2024-03-08] MEDS ORDERED: BISMUTH SUBSALICYLATE 262 MG CHEW PO PRN (13:17)
--- NOTE | 2024-03-08 14:56 | Pharmacy Report ---
Pharmacy Glycemic Short Note 2 - Date of Service March 08, 2024 - Glycemic Short BSG Results (Last 24 hours): 03/08/24 03/08/24 03/08/24 06:20 09:25 12:11 Glucose 347 H* POC Glucose 289 H 262 H OUTPATIENT ANTIDIABETIC REGIMEN: * Levemir 20 units in AM, 19 units HS. * Novolog 5 units w/small carb meal, 8 units w/medium carb meal, 12 units w/large carb meal. ASSESSMENT: * Nicole Moncada is a 39 yo F presenting with N/V. Pt's PMH include PTSD, anxiety, depression, T1DM, recent admission for esophagitis s/p EGD. * Pharmacy consulted for glycemic management. Her blood glucose has ranged from 262 to 347 so far today. * Will continue patients basal insulin at lower than home doses d/t pt needing lower doses during her last recent admission; pt also w/current N/V and clear liq diet which may lower PO intake. * Will utilize a NovoLog stress level of 2 PLAN FOR INPATIENT GLYCEMIC CONTROL: * Hold outpatient oral diabetes medications * Basal insulin * Lantus 15 units SQ BID * Bolus insulin * NovoLog per scale ACHS or Q6hrs while NPO * Goal Range: Low 110 mg/dL - High 140 mg/dL * Correction Factor: 35 mg/dL/unit * Nutritional / Prandial insulin per carb ratio of 1 unit per 12 grams CHO consumed
[2024-03-08] MEDS: LORazepam 1 MG TAB PO STA (15:30)
--- NOTE | 2024-03-08 16:17 | Psychiatric Consultation ---
Date of Consultation March 08, 2024 Impression / Recommendations Impression Diagnostically consistent with likely somatic component of anxiety, recently worsened PTSD, possible depression (difficult to assess given level of sedation today) and may be component of conversion disorder/psychogenic vomiting. Certainly also possible that nausea and pain from medical issues has not set off an anxious process and cognitive thought pattern about eating causing nausea and pain triggering this repeated vomiting behavior. May also be cluster B personality component with self-induced vomiting as a form of self-harm due to distress from recent PTSD and heightened emotional distress. No known cannabis or other substance use. No evidence for EPS given report of symptoms starting prior to Invega SEGUNDO and no esophageal spasm involvement to suggest EPS as possibility. Overall, I spent a total of 45 minutes with this case including review of chart records, review of labwork, review of EKG QTc from 02/29/2024, direct evaluation of the patient at bedside, counseling the patient, discussion of the patient with the hospitalist provider, discussion with the psychiatric liason during clinical rounds, and documentation in the electronic health record. (1) Abdominal pain, acute: (2) Nausea & vomiting: Vomiting type: unspecified Qualified Code(s): R11.2 - Nausea with vomiting, unspecified (3) Post traumatic stress disorder (PTSD): (4) Esophagitis: (5) Anxiety with somatic features: (6) Psychogenic vomiting with nausea: Plan -consider increasing mirtazapine to 30mg HS to further target nausea and anxiety -Could also consider additional of risperidone 0.25mg po or 0.5mg ODT TID prn with meals to reduce anxiety and self-induced emesis, if effective could have higher dose with next Invega SEGUNDO -If neither of these are effective consider starting SSRI like sertraline 50mg daily (may cause temporary increase in GI symptoms but should then start to lessen anxiety) -Off label consideration could be naltrexone 50mg daily if felt to be more of self-harm binge/purging urge driving behaviors Psych History Identifying Data 39 yo woman with hx of diabetes, anxiety with suspected significant somatic component, PTSD, esophagitis, frequent ED visits for self-induced vomiting admitted medically for ongoing vomiting and nausea. Chief Complaint "When I eat I get real bad anxiety". History of Present Illness Fallen was seen by the psychiatry consult service during an admission last week with medication changes to address her PTSD and increased anxiety related to eating, having nausea and then self-inducing vomiting. Today she re-presents for similar symptoms. She is very tired and can only engage briefly with interview. Clarifies that nausea and induced-vomiting has been going on for awhile and prior to initiation of recent Invega SEGUNDO. Denies esophageal spasms nor feeling of food being stuck or pain with swallowing. Rather feels that eating can sometimes cause nausea and so vomits and now seems to be a cycle of inducing vomiting after eating even when not nauseous. Last admission her anxiolytics were maximized and she was switched to longer acting PTSD medications to reduce distress related to recent event that triggered past traumatic memories. Allergies Allergy/AdvReac Type Severity Reaction Status Date / Time Penicillins Allergy Unknown Verified 03/01/24 12:56 Home Medications Medication Instructions Recorded Confirmed Type famotidine 20 mg tablet 20 mg PO BID 02/05/24 03/08/24 History metoprolol tartrate 25 mg tablet 12.5 mg PO BID ##0 02/29/24 03/08/24 History atorvastatin 40 mg tablet 40 mg PO HS 03/01/24 03/08/24 History furosemide 20 mg tablet 20 mg PO DAILY PRN Swelling 03/01/24 03/08/24 History mirtazapine 15 mg tablet (Remeron) 15 mg PO HS 03/03/24 03/08/24 History paliperidone palmitate 234 mg/1.5 234 mg IM UD 03/03/24 03/08/24 History mL intramuscular syringe (Invega Sustenna) cholecalciferol (vitamin D3) 25 50 mcg (2 x 25 mcg (1,000 unit)) 03/04/24 03/08/24 Rx mcg (1,000 unit) capsule PO QAM #60 caps clonazepam 0.5 mg disintegrating 0.5 mg PO BID #70 tabs 03/04/24 03/08/24 Rx tablet oxycodone 5 mg tablet 5 mg PO BID PRN moderate-severe 03/04/24 03/08/24 Rx pain #10 tabs aripiprazole 400 mg suspension, 400 mg IM MONTHLY 03/08/24 03/08/24 History extended rel.intramuscular syringe (Richard Blanco) doxazosin 2 mg tablet See Rx Instructions .Route .COMPLEX 03/08/24 03/08/24 History insulin aspart U-100 100 unit/mL See Rx Instructions .Route .COMPLEX 03/08/24 03/08/24 History (3 mL) subcutaneous pen insulin glargine 100 unit/mL (3 20 unit subcut BID 03/08/24 03/08/24 History mL) subcutaneous pen (Lantus Solostar U-100 Insulin) pantoprazole 40 mg tablet,delayed 0 mg PO BID 03/08/24 03/08/24 History release sucralfate 100 mg/mL oral 1,000 mg PO ACHS 03/08/24 03/08/24 History suspension topiramate 150 mg capsule 150 mg PO HS 03/08/24 03/08/24 History sprinkle,extended release 24 hr vortioxetine 10 mg tablet 10 mg PO DAILY 03/08/24 03/08/24 History (Trintellix) Patient History Social History Smoking Status: Former smoker Do You Dip or Chew Tobacco: No; Hx Alcohol Use: No Hx Substance Use: No Preferred Language: Spanish Communication Ability: Effective Topology Teacher Required: No Beliefs That Will Affect Care: None Current Living Situation: Significant Other Other Information That Helps Us Care for You: No Feels Safe at Home: Yes Safety Concerns: Feels Safe At This Time Gender Identity: Female Assistive Devices: None Physical Exam Psychiatric: Orientation: alert (quite somnolent), oriented to person and oriented to place Apperance: + disheveled Eye Contact: + poor eye contact Speech: + abnormal rate/rhythm/volume of speech (soft) Affect: + constricted affect Mood: + anxious mood Thought Process: + concrete thought process Thought Content: reality based without delusions Suicidal Thoughts: denies suicidal thoughts Homicidal Thoughts: denies homicidal thoughts Insight: + limited insight Judgment: + limited judgement Vital Signs (Past 24 Hours): Last Vital Signs Temp 36.7 C 03/08/24 13:50 Pulse 71 03/08/24 13:50 Resp 16 03/08/24 13:50 BP 105/71 03/08/24 13:50 Pulse Ox 95 03/08/24 13:50 O2 Del Method Room Air 03/08/24 13:50 Results & Data (PSY) Medications Administered Enoxaparin Sodium (Enoxaparin Inj 40 Mg/0.4 Ml Syr) 40 mg SQ Q12H [facility] Stop: 04/07/24 09:29 Last Admin: 03/08/24 12:12 Dose: Not Given Documented By: BENJAMIN Insulin Aspart (Insulin Aspart Per Unit Charge) 0 units SC ACHS YARED Stop: 04/07/24 11:29 Last Admin: 03/08/24 12:19 Dose: 4 units Documented By: BENJAMIN Co-signed By: NEDA Ondansetron HCl (Ondansetron Inj 2 Mg/Ml 2 Ml Vial) 4 mg IV Q6H PRN PRN Reason: Nausea Stop: 04/07/24 09:02 Last Admin: 03/08/24 09:56 Dose: 4 mg Documented By: AMS Coding Level of Care Code 56306 IN/OBS CONSULT LVL 3,45M Diagnoses Abdominal pain, acute R10.9 Nausea & vomiting R11.2 Vomiting type: unspecified Post traumatic stress disorder (PTSD) F43.10 Esophagitis K20.90 Anxiety with somatic features F41.8 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
[2024-03-08] MEDS: SUCRALFATE 1 GM TAB PO SCH (16:43)
[2024-03-08] MEDS: PROCHLORPERAZINE MALEATE 5 MG TAB PO PRN (17:21)
[2024-03-08] MEDS: SUCRALFATE 1 GM/10 ML UDC PO SCH (17:37)
[2024-03-08] MEDS ORDERED: DOXAZosin MESYLATE TAB 2 MG TAB PO SCH (21:00)
[2024-03-08] MEDS ORDERED: MIRTAZAPINE TAB 15 MG TAB PO SCH (21:00)
[2024-03-08] MEDS: MIRTAZAPINE TAB 15 MG TAB PO SCH (21:55)
[2024-03-08] MEDS: DOXAZosin MESYLATE TAB 2 MG TAB PO SCH (21:56)
[2024-03-08] MEDS: FAMOTIDINE 40 MG TABLET PO SCH (21:56)
[2024-03-08] MEDS: PANTOprazole 40 MG/10 ML SYR IV SCH (21:56)
[2024-03-08] MEDS: clonazePAM 0.5 MG TAB PO SCH (21:58)
[2024-03-08] MEDS: METOPROLOL TARTRATE 25 MG TAB PO SCH (22:02)
[2024-03-08] MEDS: LANTUS PER UNIT CHARGE SC SCH (22:10)
[2024-03-09] MEDS: SODIUM CHLORIDE 0.9% 500 ML IV ONE (06:08)
[2024-03-09 07:00] LABS: Hematocrit (blood only) 27.5 % (37.0-47.0); Hemoglobin 9.2 g/dl (12.0-16.0); Mean Corpuscular Hgb Conc 33.5 g/dL (32.0-36.0); Mean Corpuscular Volume 83.6 fL (80.0-100.0); Mean Platelet Volume 11.3 fL (9.4-12.4); Platelet Count 182 K/uL (130-400); RDW Coefficient of Variation 13.1 % (11.5-14.5); RDW Standard Deviation 39.7 fL (36.4-46.3); Red Blood Count 3.29 M/uL (4.20-5.40); White Blood Count 5.09 K/ul (4.8-10.8)
[2024-03-09 07:10] LABS: Bilirubin,Total 0.5 mg/dl (0.2-1.0); Calcium 7.8 mg/dl (8.6-10.3)
[2024-03-09 07:16] LABS: Albumin Globulin Ratio 1.2 (0.9-2); BUN Creatinine Ratio 9.5 (10-20); Creatinine Clr Calc Pharmacy 135.8 ml/min; Globulin 2.5 gm/dl (2.5-4.0); Total Protein 5.5 gm/dl (6.0-8.3)
--- NOTE | 2024-03-09 08:44 | Psychiatric Progress Note ---
Date of Service March 09, 2024 Impression / Recommendations Impression Diagnostically consistent with likely somatic component of anxiety, recently worsened PTSD, possible depression (difficult to assess given level of sedation today) and may be component of conversion disorder/psychogenic vomiting. Certainly also possible that nausea and pain from medical issues has not set off an anxious process and cognitive thought pattern about eating causing nausea and pain triggering this repeated vomiting behavior. May also be cluster B personality component with self-induced vomiting as a form of self-harm due to distress from recent PTSD and heightened emotional distress. No known cannabis or other substance use. A: Anxiety well controlled today and eating without any episodes of emesis per her report. She denies major depressive symptoms. She is motivated for outpatient therapy and acknowledges past diagnosis of BPD, suspect this is also playing a role in some of her dependency with partner. Wonder if dependency may present with self-induced emesis when she is overwhelmed as a means of communicated her psychic distress or as a means of meeting her need to be cared for. Acute risk of harm is low given denial of SI and future-oriented and wants to engage with outpatient therapy. Overall, I spent a total of 40 minutes with this case including review of chart records, review of labwork, direct evaluation of the patient at bedside, counseling the patient, discussion of the patient with the hospitalist provider, discussion with the psychiatric liason during clinical rounds, and documentation in the electronic health record. (1) Abdominal pain, acute: (2) Nausea & vomiting: (3) Post traumatic stress disorder (PTSD): (4) Esophagitis: (5) Anxiety with somatic features: (6) Psychogenic vomiting with nausea: Plan 03/09/2024: Continue with psychiatric medications as ordered Psych liason looking into any other earlier psychotherapy appointment options and providing her with some additional DBT resource information and skills 03/08/2024: -consider increasing mirtazapine to 30mg HS to further target nausea and anxiety -Could also consider additional of risperidone 0.25mg po or 0.5mg ODT TID prn with meals to reduce anxiety and self-induced emesis, if effective could have higher dose with next Invega SEGUNDO -If neither of these are effective consider starting SSRI like sertraline 50mg daily (may cause temporary increase in GI symptoms but should then start to lessen anxiety) -Off label consideration could be naltrexone 50mg daily if felt to be more of self-harm binge/purging urge driving behaviors Interval History Identifying Information 39 yo woman with hx of diabetes, anxiety with suspected significant somatic component, PTSD, esophagitis, frequent ED visits for self-induced vomiting admitted medically for ongoing vomiting and nausea. Chief Complaint "I'm ok, I'd like my diet changed I'm hungry". Subjective Subjective Patient was seen & assessed and interval progress reviewed. No overnight events. Today reports her mood is "ok", hungry, wants to eat more solid food. Reports she's been eating broth and jello and hasn't been anxious or needed to vomit. Slept well overnight. Denies any medication side effects. She denies feeling depressed "I don't feel depressed" and likes doing things with her boyfriend "I'm always out running around with him", but reports when she is left alone she doesn't feel motivated to clean and sometimes only showers a few times per week. Doesn't like to be alone at home but denies this is due to fear, confirms past diagnosis of BPD and that being alone can feel like abandonment which she dislikes. She wants to start therapy and feels this is what she needs but remains on a waitlist at [facility] in [place]. Has upcoming appointment for her psychiatric medications and Invega SEGUNDO. She is open to having some DBT resources to start working on. Physical Exam Psychiatric Orientation: alert and oriented x 3 Apperance: appropriately dressed Eye Contact: good eye contact Speech: normal rate/rhythm/volume of speech Affect: + constricted affect Mood: no depressed mood and no anxious mood Thought Process: + concrete thought process Thought Content: reality based without delusions Suicidal Thoughts: denies suicidal thoughts Homicidal Thoughts: denies homicidal thoughts Insight: + limited insight Judgment: + limited judgement Vital Signs (Past 24 Hours) Last Vital Signs Temp 36.7 C 03/09/24 06:57 Pulse 53 L 03/09/24 06:57 Resp 16 03/08/24 20:27 BP 101/63 03/09/24 06:57 Pulse Ox 94 03/09/24 06:57 O2 Del Method Room Air 03/09/24 06:57 Results & Data (U) Laboratory Results Laboratory Results - last 24 hr 03/08/24 03/08/24 03/08/24 09:25 12:11 16:31 WBC RBC Hgb Hct MCV MCH MCHC RDW Std Deviation RDW Coeff of Amy Plt Count MPV Sodium Potassium Chloride Carbon Dioxide Anion Gap BUN Creatinine Est Cr Clr Drug Dosing eGFR BUN/Creatinine Ratio Glucose POC Glucose 289 H 262 H 207 H Calcium Total Bilirubin AST ALT Alkaline Phosphatase Total Protein Albumin Globulin Albumin/Globulin Ratio 03/08/24 03/09/24 03/09/24 20:28 06:39 07:25 WBC 5.09 RBC 3.29 L Hgb 9.2 L Hct 27.5 L MCV 83.6 MCH 28.0 MCHC 33.5 RDW Std Deviation 39.7 RDW Coeff of Amy 13.1 Plt Count 182 MPV 11.3 Sodium 139 Potassium 4.0 Chloride 108 H Carbon Dioxide 27 Anion Gap 4 BUN 6 Creatinine 0.63 Est Cr Clr Drug Dosing 135.8 eGFR 114.94 BUN/Creatinine Ratio 9.5 L Glucose 180 H POC Glucose 184 H 189 H Calcium 7.8 L Total Bilirubin 0.5 AST 13 ALT 9 Alkaline Phosphatase 52 Total Protein 5.5 L D Albumin 3.0 L Globulin 2.5 Albumin/Globulin Ratio 1.2 Current Inpatient Medications Current Inpatient Medications: Current Inpatient Medications Acetaminophen (Acetaminophen 325 Mg Tab) 650 mg PO Q4H PRN PRN Reason: pain/fever Stop: 04/07/24 09:02 Al Hydrox/Mg Hydrox/Simethicone (Aluminum/Magnesium Susp 30 Ml Udc) 30 ml PO Q6H PRN PRN Reason: Dyspepsia Stop: 04/07/24 09:02 Bismuth Subsalicylate (Bismuth Subsalicylate 262 Mg Chew) 1 tab PO Q30M PRN PRN Reason: GI Upset Stop: 04/07/24 13:16 Clonazepam (Clonazepam 0.5 Mg Tab) 0.5 mg PO BID YARED Stop: 04/07/24 20:59 Last Admin: 03/08/24 21:58 Dose: 0.5 mg Dextrose (Dextrose 50% 50 Ml Syringe) 25 - 50 ml IV UD PRN; Protocol PRN Reason: Hypoglycemia Protocol Stop: 04/07/24 09:02 Doxazosin Mesylate (Doxazosin Mesylate Tab 2 Mg Tab) 2 mg PO DAILY YARED Stop: 04/08/24 08:59 Doxazosin Mesylate (Doxazosin Mesylate Tab 2 Mg Tab) 3 mg PO HS YARED Stop: 04/07/24 20:59 Last Admin: 03/08/24 21:56 Dose: 3 mg Enoxaparin Sodium (Enoxaparin Inj 40 Mg/0.4 Ml Syr) 40 mg SQ Q12H YARED Stop: 04/07/24 09:29 Last Admin: 03/08/24 21:59 Dose: Not Given Famotidine (Famotidine 40 Mg Tablet) 40 mg PO BID YARED Stop: 04/07/24 20:59 Last Admin: 03/08/24 21:56 Dose: 40 mg Furosemide (Furosemide 20 Mg Tab) 20 mg PO DAILY PRN PRN Reason: Swelling Stop: 04/07/24 12:39 Glucagon (Glucagon For Inj 1 Mg Vial) 1 mg SQ UD PRN; Protocol PRN Reason: Hypoglycemia Protocol Stop: 04/07/24 09:02 Glucose (Glucose 40% Gel 15 Gm Tube) 15 - 30 gm PO UD PRN; Protocol PRN Reason: Hypoglycemia Protocol Stop: 04/07/24 09:02 Glucose (Glucose 10 Tab/Tube) 4 - 8 tab PO UD PRN; Protocol PRN Reason: Hypoglycemia Protocol Stop: 04/07/24 09:02 Pantoprazole Sodium (Protonix) 40 mg in 10 mls @ 5 mls/min IV BID YARED Stop: 04/07/24 20:59 Last Admin: 03/08/24 21:56 Dose: 5 mls/min Insulin Aspart (Insulin Aspart Per Unit Charge) 0 units SC ACHS YARED Stop: 04/07/24 11:29 Last Admin: 03/08/24 22:11 Dose: 1 units Insulin Glargine (Lantus Per Unit Charge) 18 units SC BID YARED Stop: 04/07/24 20:59 Melatonin (Melatonin 3 Mg Tab) 3 mg PO HS PRN PRN Reason: Insomnia Stop: 04/07/24 09:02 Metoprolol Tartrate (Metoprolol Tartrate 25 Mg Tab) 25 mg PO BID YARED Stop: 04/07/24 20:59 Last Admin: 03/08/24 22:02 Dose: Not Given Mirtazapine (Mirtazapine Tab 15 Mg Tab) 30 mg PO HS YARED Stop: 04/07/24 20:59 Last Admin: 03/08/24 21:55 Dose: 30 mg Miscellaneous (Carbohydrates For Hypoglycemia ) 15 - 30 gm PO UD PRN PRN Reason: Hypoglycemia Protocol Stop: 04/07/24 09:02 Miscellaneous Information (Pharmacy Glycemic Mgmt Consult) 1 each N/A UD PRN PRN Reason: Consult Stop: 04/07/24 09:02 Ondansetron HCl (Ondansetron Inj 2 Mg/Ml 2 Ml Vial) 4 mg IV Q6H PRN PRN Reason: Nausea Stop: 04/07/24 09:02 Last Admin: 03/08/24 09:56 Dose: 4 mg Prochlorperazine (Prochlorperazine Maleate 5 Mg Tab) 5 mg PO TID PRN PRN Reason: Nausea And Vomiting Stop: 04/07/24 13:59 Last Admin: 03/08/24 17:21 Dose: 5 mg Risperidone (Risperidone Odt 0.5 Mg Soltab) 0.5 mg PO AC [facility] Stop: 04/08/24 07:29 Sucralfate (Sucralfate 1 Gm/10 Ml Udc) 1 gm PO QID YRAED Stop: 04/07/24 17:29 Last Admin: 03/08/24 21:57 Dose: 1 gm (2) Nausea & vomiting Vomiting type: unspecified Qualified Code(s): R11.2 - Nausea with vomiting, unspecified
[2024-03-09] MEDS: DOXAZosin MESYLATE TAB 2 MG TAB PO SCH (09:04)
[2024-03-09] MEDS: risperiDONE ODT 0.5 MG SOLTAB PO SCH (09:04)
[2024-03-09] MEDS: LANTUS PER UNIT CHARGE SC SCH (09:09)
--- NOTE | 2024-03-09 10:18 | Pharmacy Report ---
Pharmacy Glycemic Short Note 2 - Date of Service March 09, 2024 - Glycemic Short BSG Results (Last 24 hours): 03/08/24 03/08/24 03/08/24 12:11 16:31 20:28 Glucose POC Glucose 262 H 207 H 184 H 03/09/24 03/09/24 06:39 07:25 Glucose 180 H POC Glucose 189 H OUTPATIENT ANTIDIABETIC REGIMEN: * Levemir 20 units in AM, 19 units HS. * Novolog 5 units w/small carb meal, 8 units w/medium carb meal, 12 units w/large carb meal. ASSESSMENT: 03/09: * Pt's night BSG 184 yesterday, today AM random BSG of 180 and POC of 189 * Total insulin dose yesterday was 37 units (30 units basal + 7 units bolus) * To help cover morning blood sugars will increase Lantus from 15 units BID to 18 units BID to mimic pt's home basal dosing as well. * Will make no changes to NovoLog parameters. 03/08: * Nicole Moncada is a 39 yo F presenting with N/V. Pt's PMH include PTSD, anxiety, depression, T1DM, recent admission for esophagitis s/p EGD. * Pharmacy consulted for glycemic management. Her blood glucose has ranged from 262 to 347 so far today. * Will continue patients basal insulin at lower than home doses d/t pt needing lower doses during her last recent admission; pt also w/current N/V and clear liq diet which may lower PO intake. * Will utilize a NovoLog stress level of 2 PLAN FOR INPATIENT GLYCEMIC CONTROL: * Hold outpatient oral diabetes medications * Basal insulin * Lantus 15 units SQ BID * Bolus insulin * NovoLog per scale ACHS or Q6hrs while NPO * Goal Range: Low 110 mg/dL - High 140 mg/dL * Correction Factor: 35 mg/dL/unit * Nutritional / Prandial insulin per carb ratio of 1 unit per 12 grams CHO consumed
--- NOTE | 2024-03-09 16:55 | Hospitalist Progress Note ---
Date of Service March 09, 2024 Assessment & Plan (1) Nausea & vomiting: Plan: 39-year-old female presenting for N/V and abdominal pain, reportedly witnessed self-induced vomiting. Previously identified that panic attacks trigger these episodes of N/V. Recent admission 02/28-03/04 in which she was diagnosed with esophagitis and esophageal ulcer on EGD. she reports a diagnosis of diabetic gastroparesis diagnosed at [facility]. based on some limited outpatient records I obtained she has frequent ED visits for same symptomatology and often witnessed to self-induce vomiting - CT A/P: No acute infectious/inflammatory findings, trace pleural effusions, distal esophagus wall mildly thickened (esophagitis); small hiatal hernia, gallbladder surgically absent, appendix absent presentation consistent with possible flair of diabetic gastroparesis and/or somatic manifestation of anxiety, psychogenic symptoms, or self-harm behavior continue Pepcid Protonix and Carafate stop Compazine changed to oral Phenergan for nausea which she uses at home continue risperidone 0.5 mg ODT before every meal, continue trial of this although states she does not perceive benefit at this time metoclopramide is contraindicated with her psychiatric medications discussed effect of improved glycemic control on functioning of the GI system and that it can improve gastroparesis. I also discussed with her that I am concerned she is getting a lot of unnecessary radiation from frequent abdominal CT scans because of ED presentations with nausea vomiting and abdominal pain recommended frequent small meals -please avoid opioids (especially IV) and IV benzodiazepines I discussed going home today but she reports that she still feels too poorly (2) Esophagitis: Plan: H/o intractable N/V and coffee-ground appearance of emesis (02/28); History of GERD, on carafate, protonix, pepcid. Follow with Gareth bearden diagnosed with gastroparesis. - No recent coffee ground emesis, no blood noted otherwise; H&H improved - No recent abx (previously prescribed Doxycycline but did not take) - T1DM; consider diabetes related gastroparesis/dysmotility as contributing factor - GI consulted- EGD 03/01--> esophageal ulcer w/ bleeding at the lower third of esophagus, appearance of gastric congestion from likely a pill; dispersed medium erosions of recent bleeding in gastric body likely 2/2 to NG tube. - Management as above (#1) (3) MDD (major depressive disorder), recurrent, in partial remission: Plan: Multiple mental health diagnosed disorders - PTSD, schizoaffective Disorder, MDD, Anxiety - Multiple prior admissions at inpatient psychiatric facilities - Continue Invega injection as scheduled; no longer taking prazosin or Valium - Denies active suicidal thoughts or plans for suicide - Continue Doxazosin 2mg daily, 3 mg qHS - Continue clonazepam 0.5 mg ODT twice daily and as needed (for breakthrough anxiety) - Continue remeron qHS - increased to 30 mg - she is taking Trintellix 10 mg in the afternoon, however, this is not available in the hospital formulary - Invega injections outpatient - psychiatry consulted, discussed with Dr. Chau today. They have provided some DBT resources and working getting a counselor sooner, behavioral health liaison plan to call her significant other (4) Type 1 diabetes: Plan: 1DM; at home Lantus 20U daily, 19 U HS - Most recent A1C 7.8% (03/01) - T2DM diet - BSG ACHS if eating, q6h if npo - Adjust regimen as needed - Pharmacy glycemic management consulted. BG 180-220, control more difficult because of inconsistent po Reports she has a dexcom at home but has not been using because the sensor is incompatible with CT scans and she keeps having to take it off Plan HLD- Continue atorvastatin Edema- Continue furosemide prn Continue metoprolol tartrate 25mg BID VTE prophylaxis: Lovenox 40 SQ In the future please avoid reflexively ordering abdominal CT scans if she presents with her stereotypical symptoms, benign labs and exam. Admission and Anticipated Discharge Date Admission Date: March 08, 2024 Subjective tolerated regular food for lunch reports abdominal pain after eating, continued nausea Physical Exam 2 Physical Exam: PHYSICAL EXAMINATION Last 24h vital signs reviewed, see documentation in flowsheet General: comfortable appearing, no distress HEENT: Normocephalic, atraumatic, pupils round and equal, sclerae anicteric, no conjunctival injection, moist mucus membranes Lungs: Normal respiratory effort. Clear to auscultation bilaterally. No RRW Heart: Regular rate and rhythm, no murmurs. No JVD Abdomen: Soft, nontender, nondistended. Bowel sounds present. Extremities: Warm, dry, well-perfused. No extremity edema. Neuro: Alert and oriented x 4, face symmetric, moves 4 extremities well Psych: guarded, anxious affect and mood, normal behavior Results & Data Results & Data Vital Signs (Past 12 Hours) Vital Signs Temp Pulse Pulse Pulse Resp BP BP 03/09/24 14:37 36.9 C 57 L 16 95/56 L 03/09/24 09:02 107/71 03/09/24 06:57 36.7 C 53 L 101/63 03/09/24 05:56 56 L 85/57 L Pulse Ox O2 Del Method 03/09/24 14:37 92 Room Air 03/09/24 09:02 03/09/24 06:57 94 Room Air 03/09/24 05:56 Laboratory Results 03/09/24 06:39 03/09/24 06:39 PG Care Time/CCT Total # of Minutes Spent Total Time Spent with Patient: Total time spent is greater than 50% in coordination of care (as documented) at patient's floor/unit and/or counseling patient: Coding Level of Care Code 96284 SUB INP/OBS CARE 2/35MIN Diagnoses Nausea & vomiting R11.2 Vomiting type: unspecified Esophagitis K20.90 MDD (major depressive disorder), recurrent, in partial remission F33.41 Type 1 diabetes E10.9 Diabetes mellitus complication status: without complication (1) Nausea & vomiting Vomiting type: unspecified Qualified Code(s): R11.2 - Nausea with vomiting, unspecified (4) Type 1 diabetes Diabetes mellitus complication status: without complication Qualified Code(s): E10.9 - Type 1 diabetes mellitus without complications
[2024-03-09] MEDS: PROMETHAZINE HCL 25 MG TAB PO PRN (17:20)
[2024-03-09] MEDS: ALUMINUM/MAGNESIUM SUSP 30 ML UDC PO PRN (19:44)
[2024-03-10 07:13] LABS: Hematocrit (blood only) 29.1 % (37.0-47.0); Hemoglobin 9.8 g/dl (12.0-16.0); Mean Corpuscular Hemoglobin 27.5 pg (25.0-34.0); Mean Corpuscular Hgb Conc 33.7 g/dL (32.0-36.0); Mean Corpuscular Volume 81.5 fL (80.0-100.0); Mean Platelet Volume 11.6 fL (9.4-12.4); Platelet Count 208 K/uL (130-400); RDW Coefficient of Variation 12.9 % (11.5-14.5); RDW Standard Deviation 38.2 fL (36.4-46.3); Red Blood Count 3.57 M/uL (4.20-5.40); White Blood Count 4.73 K/ul (4.8-10.8)
[2024-03-10 07:33] VITALS: RESP 16
--- NOTE | 2024-03-10 14:25 | Psychiatric Progress Note ---
Date of Service March 10, 2024 Impression / Recommendations Impression Diagnostically consistent with likely somatic component of anxiety, recently worsened PTSD, possible depression (difficult to assess given level of sedation today) and may be component of conversion disorder/psychogenic vomiting. Certainly also possible that nausea and pain from medical issues has not set off an anxious process and cognitive thought pattern about eating causing nausea and pain triggering this repeated vomiting behavior. May also be cluster B personality component with self-induced vomiting as a form of self-harm due to distress from recent PTSD and heightened emotional distress. No known cannabis or other substance use. A: Presents an improvement in nightmare freq/intensity and reduced daytime hypervigilance. Endorses faster response to ODT Clonazepam at home. N/V appears to be psychogenic in nature and learned behavior. Counselled on coping skills to replace self harm behaviors. May benefit from dietary modification to reduce underling nausea stimulus especially given possible gastroparesis, on-going anxiety and counseled on dietary strategies. Discussed therapy options for PTSD symptom reduction including DBT, CBT, IOP. Acute risk of harm is low given denial of SI and future-oriented and wants to engage with outpatient therapy. Overall, I spent a total of 45 minutes with this case including review of chart records, review of labwork, direct evaluation of the patient at bedside, counseling the patient, discussion of the patient with the hospitalist provider, discussion with the psychiatric liaison during clinical rounds, collateral from patient's partner and documentation in the electronic health record. 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 consult -Marathon diet, smaller portions, limit acidic/fatty foods/carbonated sodas -Discussed care plan and recommendations with patient's partner 03/09/2024: Continue with psychiatric medications as ordered Psych liason looking into any other earlier psychotherapy appointment options and providing her with some additional DBT resource information and skills 03/08/2024: -consider increasing mirtazapine to 30mg HS to further target nausea and anxiety -Could also consider additional of risperidone 0.25mg po or 0.5mg ODT TID prn with meals to reduce anxiety and self-induced emesis, if effective could have higher dose with next Invega SEGUNDO -If neither of these are effective consider starting SSRI like sertraline 50mg daily (may cause temporary increase in GI symptoms but should then start to lessen anxiety) -Off label consideration could be naltrexone 50mg daily if felt to be more of self-harm binge/purging urge driving behaviors Interval History Identifying Information 39 yo woman with hx of diabetes, anxiety with suspected significant somatic component, PTSD, esophagitis, frequent ED visits for self-induced vomiting admitted medically for ongoing vomiting and nausea. Chief Complaint Nausea, vomiting Subjective Subjective Pt reports after leaving the hospital continued to feel nauseous and self induced vomiting. Reports has been a problem for several years. No recent sexual encounter in interim. Recalls nausea starting in the late evening and vomiting persisted into venue coordinator. Initially took dissolvable Klonopin and reports improvement in mental anxiety however still felt need to induce vomiting for nausea relief. Reports preceding stomach pains. Noted pt finished her lunch today in entirety. Reports resolution of nightmares and reports feeling more calm in surroundings during the day. Partner had mentioned she is talking in her sleep. Currently on waiting list for outpatient therapy for CBT. Prefers in person therapy. Spoke to patient's partner (Ata Darby [phone]) and updated about care plan, recommendations. Physical Exam Mental Examination Appearance: Disheveled Eye Contact: Maintains Eye Contact Motor Behavior: Unremarkable Speech: Normal Mood: Anxious Affect: Constricted Thought Process: Intact and Linear Thought Content: Intact Hallucinations: None Insight: Poor (to limited) Judgement: Poor Vital Signs (Past 24 Hours) Last Vital Signs Temp 36.5 C 03/10/24 07:28 Pulse 50 L 03/10/24 07:28 Resp 16 03/10/24 07:28 BP 96/65 L 03/10/24 07:28 Pulse Ox 97 03/10/24 07:28 O2 Del Method Room Air 03/10/24 07:28 Results & Data ([facility]) Laboratory Results Laboratory Results - last 24 hr 03/09/24 03/09/24 03/10/24 16:24 20:42 06:33 WBC 4.73 L RBC 3.57 L Hgb 9.8 L Hct 29.1 L MCV 81.5 MCH 27.5 MCHC 33.7 RDW Std Deviation 38.2 RDW Coeff of Amy 12.9 Plt Count 208 MPV 11.6 POC Glucose 198 H 210 H 03/10/24 03/10/24 07:31 11:19 WBC RBC Hgb Hct MCV MCH MCHC RDW Std Deviation RDW Coeff of Amy Plt Count MPV POC Glucose 206 H 205 H Current Inpatient Medications Current Inpatient Medications: Current Inpatient Medications Acetaminophen (Acetaminophen 325 Mg Tab) 650 mg PO Q4H PRN PRN Reason: pain/fever Stop: 04/07/24 09:02 Al Hydrox/Mg Hydrox/Simethicone (Aluminum/Magnesium Susp 30 Ml Udc) 30 ml PO Q6H PRN PRN Reason: Dyspepsia Stop: 04/07/24 09:02 Last Admin: 03/09/24 19:44 Dose: 30 ml Bismuth Subsalicylate (Bismuth Subsalicylate 262 Mg Chew) 1 tab PO Q30M PRN PRN Reason: GI Upset Stop: 04/07/24 13:16 Clonazepam (Clonazepam 0.5 Mg Tab) 0.5 mg PO BID YARED Stop: 04/07/24 20:59 Last Admin: 03/10/24 08:36 Dose: 0.5 mg Dextrose (Dextrose 50% 50 Ml Syringe) 25 - 50 ml IV UD PRN; Protocol PRN Reason: Hypoglycemia Protocol Stop: 04/07/24 09:02 Doxazosin Mesylate (Doxazosin Mesylate Tab 2 Mg Tab) 2 mg PO DAILY YARED Stop: 04/08/24 08:59 Last Admin: 03/10/24 08:37 Dose: 2 mg Doxazosin Mesylate (Doxazosin Mesylate Tab 2 Mg Tab) 3 mg PO HS YARED Stop: 04/07/24 20:59 Last Admin: 03/09/24 19:56 Dose: 3 mg Enoxaparin Sodium (Enoxaparin Inj 40 Mg/0.4 Ml Syr) 40 mg SQ Q12H YARED Stop: 04/07/24 09:29 Last Admin: 03/10/24 08:46 Dose: Not Given Famotidine (Famotidine 40 Mg Tablet) 40 mg PO BID YARED Stop: 04/07/24 20:59 Last Admin: 03/10/24 08:39 Dose: 40 mg Furosemide (Furosemide 20 Mg Tab) 20 mg PO DAILY PRN PRN Reason: Swelling Stop: 04/07/24 12:39 Glucagon (Glucagon For Inj 1 Mg Vial) 1 mg SQ UD PRN; Protocol PRN Reason: Hypoglycemia Protocol Stop: 04/07/24 09:02 Glucose (Glucose 40% Gel 15 Gm Tube) 15 - 30 gm PO UD PRN; Protocol PRN Reason: Hypoglycemia Protocol Stop: 04/07/24 09:02 Glucose (Glucose 10 Tab/Tube) 4 - 8 tab PO UD PRN; Protocol PRN Reason: Hypoglycemia Protocol Stop: 04/07/24 09:02 Pantoprazole Sodium (Protonix) 40 mg in 10 mls @ 5 mls/min IV BID [facility] Stop: 04/07/24 20:59 Last Admin: 03/10/24 08:41 Dose: Not Given Insulin Aspart (Insulin Aspart Per Unit Charge) 0 units SC ACHS [facility]; Protocol Stop: 04/07/24 11:29 Last Admin: 03/10/24 13:02 Dose: 12 units Insulin Glargine (Lantus Per Unit Charge) 20 units SC BID [facility]; Protocol Stop: 04/09/24 20:59 Melatonin (Melatonin 3 Mg Tab) 3 mg PO HS PRN PRN Reason: Insomnia Stop: 04/07/24 09:02 Metoprolol Tartrate (Metoprolol Tartrate 25 Mg Tab) 25 mg PO BID [facility] Stop: 04/07/24 20:59 Last Admin: 03/10/24 08:41 Dose: Not Given Mirtazapine (Mirtazapine Tab 15 Mg Tab) 30 mg PO HS [facility] Stop: 04/07/24 20:59 Last Admin: 03/09/24 19:57 Dose: 30 mg Miscellaneous (Carbohydrates For Hypoglycemia ) 15 - 30 gm PO UD PRN PRN Reason: Hypoglycemia Protocol Stop: 04/07/24 09:02 Miscellaneous (Order Awaiting Action Trintellix) 1 each N/A QS [facility] Stop: 04/08/24 15:59 Last Admin: 03/10/24 12:50 Dose: Not Given Miscellaneous Information (Pharmacy Glycemic Mgmt Consult) 1 each N/A UD PRN PRN Reason: Consult Stop: 04/07/24 09:02 Ondansetron HCl (Ondansetron Inj 2 Mg/Ml 2 Ml Vial) 4 mg IV Q6H PRN PRN Reason: Nausea Stop: 04/07/24 09:02 Last Admin: 03/09/24 18:21 Dose: 4 mg Promethazine HCl (Promethazine Hcl 25 Mg Tab) 25 mg PO Q6H PRN PRN Reason: Nausea And Vomiting Stop: 04/08/24 13:31 Last Admin: 03/09/24 17:20 Dose: 25 mg Risperidone (Risperidone Odt 0.5 Mg Soltab) 0.5 mg PO AC YARED Stop: 04/08/24 07:29 Last Admin: 03/10/24 11:23 Dose: 0.5 mg Sucralfate (Sucralfate 1 Gm/10 Ml Udc) 1 gm PO QID YARED Stop: 04/07/24 17:29 Last Admin: 03/10/24 11:23 Dose: 1 gm (2) Nausea & vomiting Vomiting type: unspecified Qualified Code(s): R11.2 - Nausea with vomiting, unspecified
[2024-03-10 16:22] LABS: 7-Aminoclonaz, Confirm 204 ng/mL (<25); Hydro-Alp Ur, GC/MS NEGATIVE ng/mL (<25); Hydroxyethylflurazepam, Conf NEGATIVE ng/mL (<50); Hydroxymidazolam Ur, GC/MS NEGATIVE ng/mL (<50); Hydroxytriazolam NEGATIVE ng/mL (<50); Lorazepam, Ur GC/MS NEGATIVE ng/mL (<50); Nordiazepam, Confirm 266 ng/mL (<50); Oxazepam Ur, GC/MS 1170 ng/mL (<50); Temazepam, Confirm 698 ng/mL (<50)
[2024-03-10] MEDS: LORazepam 1 MG TAB PO PRN (16:35)
--- NOTE | 2024-03-10 17:36 | Hospitalist Progress Note ---
<Statement entered by Crystal Shipley MD - 03/10/24 18:32> I have reviewed vital signs, chart notes, labs and imaging. I have personally seen, evaluated and examined the patient. I have also discussed the management of the patient with the JANE and I agree with the exam findings documented in the history and physical examination and the documented assessment and plan unless otherwise stated below. I think she looks improved today with respect to more interactive less lethargic and appears less anxious and fearful abdomen is tender to palpation however contraction of rectus abdominis reproduces the pain, this is consistent with abdominal wall tenderness from frequent emesis I discussed her care with psychiatrist today he is working on options for intensive outpatient treatment. Date of Service March 10, 2024 Assessment & Plan (1) Nausea & vomiting: Plan: 39-year-old female presenting for N/V and abdominal pain, reportedly witnessed self-induced vomiting. Previously identified that panic attacks trigger these episodes of N/V. Recent admission 02/28-03/04 in which she was diagnosed with esophagitis and esophageal ulcer on EGD. she reports a diagnosis of diabetic gastroparesis diagnosed at [facility]. based on some limited outpatient records I obtained she has frequent ED visits for same symptomatology and often witnessed to self-induce vomiting - CT A/P: No acute infectious/inflammatory findings, trace pleural effusions, distal esophagus wall mildly thickened (esophagitis); small hiatal hernia, gallbladder surgically absent, appendix absent - Presentation consistent with possible flair of diabetic gastroparesis and/or somatic manifestation of anxiety, psychogenic symptoms, or self-harm behavior - continue Pepcid Protonix and Carafate - stop Compazine changed to oral Phenergan for nausea which she uses at home. She reports Phenergan is working a little bit. - continue risperidone 0.5 mg ODT before every meal, continue trial of this although states she does not perceive benefit at this time - metoclopramide is contraindicated with her psychiatric medications - discussed effect of improved glycemic control on functioning of the GI system and that it can improve gastroparesis. It was previously discussed with her that there is concern she is getting a lot of unnecessary radiation from - -- frequent abdominal CT scans because of ED presentations with nausea vomiting and abdominal pain - recommended frequent small meals -please avoid opioids (especially IV) and IV benzodiazepines. Per Psych - recommend 1mg Lorazepam QD PRN. Will order this. Could consider Zoloft as well. I discussed going home today but she reports that she still feels too poorly. Will aim for potential discharge tomorrow. (2) Esophagitis: Plan: H/o intractable N/V and coffee-ground appearance of emesis (02/28); History of GERD, on carafate, protonix, pepcid. Follow with Gareth bearden diagnosed with gastroparesis. - No recent coffee ground emesis, no blood noted otherwise; H&H improved - No recent abx (previously prescribed Doxycycline but did not take) - T1DM; consider diabetes related gastroparesis/dysmotility as contributing fact or - GI consulted- EGD 03/01--> esophageal ulcer w/ bleeding at the lower third of esophagus, appearance of gastric congestion from likely a pill; dispersed medium erosions of recent bleeding in gastric body likely 2/2 to NG tube. - Management as above (#1) (3) MDD (major depressive disorder), recurrent, in partial remission: Plan: Multiple mental health diagnosed disorders - PTSD, schizoaffective Disorder, MDD, Anxiety - Multiple prior admissions at inpatient psychiatric facilities - Continue Invega injection as scheduled; no longer taking prazosin or Valium - Denies active suicidal thoughts or plans for suicide - Continue Doxazosin 2mg daily, 3 mg qHS - Continue clonazepam 0.5 mg ODT twice daily and as needed (for breakthrough anxiety) - Continue remeron qHS - increased to 30 mg - She is taking Trintellix 10 mg in the afternoon, however, this is not available in the hospital formulary - Invega injections outpatient - Continue to follow with Psych. They have provided some DBT resources and working getting a counselor sooner, behavioral health liaison plan to call her significant other (4) Type 1 diabetes: Plan: 1DM; at home Lantus 20U daily, 19 U HS - Most recent A1C 7.8% (03/01) - T2DM diet - BSG ACHS if eating, q6h if npo - Adjust regimen as needed - Pharmacy glycemic management consulted. BG 180-220, control more difficult because of inconsistent po Reports she has a dexcom at home but has not been using because the sensor is incompatible with CT scans and she keeps having to take it off Plan HLD- Continue atorvastatin Edema- Continue furosemide prn Continue metoprolol tartrate 25mg BID VTE prophylaxis: Bevnox 40 SQ In the future please avoid reflexively ordering abdominal CT scans if she presents with her stereotypical symptoms, benign labs and exam. Admission and Anticipated Discharge Date Admission Date: March 08, 2024 Subjective Fallen reports that she still cannot tolerate food and it makes her vomit. She states that she last vomited at 0400 and it was clear. She is eating her lunch during my visit, and reports she is trying to eat her food slowly so she doesn't vomit. She does report continued abdominal discomfort (not new). She is taking Phenergan and states that it helps "a little bit". Review of Systems Constitutional: no fever and no chills Respiratory: no cough and no dyspnea Cardiovascular: no chest pain and no dyspnea at rest Gastrointestinal: + abdominal pain, + nausea and + vomitin g Genitourinary: no dysuria, no difficulty urinating, no urinary hesitancy and no urinary urgency Musculoskeletal: no back pain Integumentary: no rash Neurologic: no generalized weakness Psychiatric: + anxiety; no behavioral changes Physical Exam Constitutional: WD/WN, vitals as above Neck: trachea midline Respiratory: normal respiratory effort; no respiratory distress Auscultation: lungs clear to auscultation bilaterally Cardiovascular: Rate/Rhythm: regular rate and regular rhythm Extremities: no edema Gastrointestinal (Abdomen): Inspection/Auscultation: abdomen normal to inspection Percussion/Palpation: abdomen soft; abdomen nontender and no guarding Psychiatric: Orientation: alert and oriented x 3 Results & Data Results & Data Vital Signs (Past 12 Hours) Vital Signs Temp Pulse Resp BP Pulse Ox O2 Del Method 03/10/24 14:53 36.6 C 53 L 16 105/70 97 Room Air 03/10/24 07:28 36.5 C 50 L 16 96/65 L 97 Room Air Laboratory Results 03/10/24 03/10/24 03/10/24 Range/Units 16:32 11:19 07:31 WBC (4.8-10.8) K/ul RBC (4.20-5.40) M/uL Hgb (12.0-16.0) g/dl Hct (37.0-47.0) % MCV (80.0-100.0) fL MCH (25.0-34.0) pg MCHC (32.0-36.0) g/dL RDW Std Deviation (36.4-46.3) fL RDW Coeff of Amy (11.5-14.5) % Plt Count (130-400) K/uL MPV (9.4-12.4) fL POC Glucose 124 H 205 H 206 H (70-99) mg/dl U OH-Alprazolam Confrm (<25) ng/mL 7-Amino Clonazepam (<25) ng/mL Ur Nordiazepam Confirm (<50) ng/mL U OH-ethylflurazepam (<50) ng/mL U Lorazepam Cnf GC/MS (<50) ng/mL U Oxazepam Confm GC/MS (<50) ng/mL Ur Temazepam Confirm (<50) ng/mL U OH-Triazolam Confirm (<50) ng/mL U OH-Midazolam Confirm (<50) ng/mL Drug Screen Comment 03/10/24 03/09/24 03/08/24 Range/Units 06:33 20:42 05:52 WBC 4.73 L (4.8-10.8) K/ul RBC 3.57 L (4.20-5.40) M/uL Hgb 9.8 L (12.0-16.0) g/dl Hct 29.1 L (37.0-47.0) % MCV 81.5 (80.0-100.0) fL MCH 27.5 (25.0-34.0) pg MCHC 33.7 (32.0-36.0) g/dL RDW Std Deviation 38.2 (36.4-46.3) fL RDW Coeff of Amy 12.9 (11.5-14.5) % Plt Count 208 (130-400) K/uL MPV 11.6 (9.4-12.4) fL POC Glucose 210 H (70-99) mg/dl U OH-Alprazolam Confrm NEGATIVE (<25) ng/mL 7-Amino Clonazepam 204 H (<25) ng/mL Ur Nordiazepam Confirm 266 H (<50) ng/mL U OH-ethylflurazepam NEGATIVE (<50) ng/mL U Lorazepam Cnf GC/MS NEGATIVE (<50) ng/mL U Oxazepam Confm GC/MS 1170 H (<50) ng/mL Ur Temazepam Confirm 698 H (<50) ng/mL U OH-Triazolam Confirm NEGATIVE (<50) ng/mL U OH-Midazolam Confirm NEGATIVE (<50) ng/mL Drug Screen Comment SEE NOTE PG Care Time/CCT Total # of Minutes Spent Total Time Spent with Patient: Total time spent is greater than 50% in coordination of care (as documented) at patient's floor/unit and/or counseling patient: [place] [address] SUB INP/OBS CARE 2/35MIN Patient Type Established History Expanded Problem Focused Exam Expanded Problem Focused Medical Decision Making Moderate Complexity Diagnoses Nausea & vomiting R11.2 Vomiting type: unspecified Esophagitis K20.90 MDD (major depressive disorder), recurrent, in partial remission F33.41 Type 1 diabetes E10.9 Diabetes mellitus complication status: without complication (1) Nausea & vomiting Vomiting type: unspecified Qualified Code(s): R11.2 - Nausea with vomiting, unspecified (4) Type 1 diabetes Diabetes mellitus complication status: without complication Qualified Code(s): E10.9 - Type 1 diabetes mellitus without complications
[2024-03-10] MEDS: LANTUS PER UNIT CHARGE SC SCH (20:53)
[2024-03-10] MEDS: PANTOprazole 40 MG TAB PO SCH (21:23)
[2024-03-11 08:15] LABS: Hematocrit (blood only) 31.2 % (37.0-47.0); Hemoglobin 10.4 g/dl (12.0-16.0); Mean Corpuscular Hemoglobin 27.2 pg (25.0-34.0); Mean Corpuscular Hgb Conc 33.3 g/dL (32.0-36.0); Mean Corpuscular Volume 81.5 fL (80.0-100.0); Mean Platelet Volume 11.2 fL (9.4-12.4); Platelet Count 206 K/uL (130-400); RDW Coefficient of Variation 12.9 % (11.5-14.5); RDW Standard Deviation 37.5 fL (36.4-46.3); Red Blood Count 3.83 M/uL (4.20-5.40); White Blood Count 4.82 K/ul (4.8-10.8)
--- NOTE | 2024-03-11 10:17 | Pharmacy Report ---
Pharmacy Glycemic Short Note 2 - Date of Service March 11, 2024 - Glycemic Short BSG Results (Last 24 hours): 03/10/24 03/10/24 03/10/24 11:19 16:32 20:44 POC Glucose 205 H 124 H 122 H 03/11/24 07:36 POC Glucose 188 H OUTPATIENT ANTIDIABETIC REGIMEN: * Levemir 20 units in AM, 19 units HS. * Novolog 5 units w/small carb meal, 8 units w/medium carb meal, 12 units w/large carb meal. ASSESSMENT: 03/11: * Blood sugars elevated all day 03/09 and fasting on 03/10, increased basal starting last night and tightened CF/CR, blood sugars improved last evening and today, continue. 03/09: * Pt's night BSG 184 yesterday, today AM random BSG of 180 and POC of 189 * Total insulin dose yesterday was 37 units (30 units basal + 7 units bolus) * To help cover morning blood sugars will increase Lantus from 15 units BID to 18 units BID to mimic pt's home basal dosing as well. * Will make no changes to NovoLog parameters. 03/08: * Nicole Moncada is a 39 yo F presenting with N/V. Pt's PMH include PTSD, anxiety, depression, T1DM, recent admission for esophagitis s/p EGD. * Pharmacy consulted for glycemic management. Her blood glucose has ranged from 262 to 347 so far today. * Will continue patients basal insulin at lower than home doses d/t pt needing lower doses during her last recent admission; pt also w/current N/V and clear liq diet which may lower PO intake. * Will utilize a NovoLog stress level of 2 PLAN FOR INPATIENT GLYCEMIC CONTROL: * Basal insulin * Lantus 20 units SQ BID * Bolus insulin * NovoLog per scale ACHS or Q6hrs while NPO * Goal Range: Low 110 mg/dL - High 140 mg/dL * Correction Factor: 25 mg/dL/unit * Nutritional / Prandial insulin per carb ratio of 1 unit per 7 grams CHO consumed
--- NOTE | 2024-03-11 11:46 | Discharge Summary ---
<Statement entered by Crystal Shipley MD - 03/11/24 15:56> she did seem to improve with respect to her behavior and symptomatology of nausea vomiting and anxiety after addition of risperidone 0.5 mg prior to meals and increase in mirtazapine to 30 mg at bedtime. I counseled her with respect to gastroparesis diet. Inpatient psychiatrist rounded on her daily as Did the behavioral health liaison, and she has resources for outpatient follow-up with her psychiatrist and resources to establish a therapist Discharge Summary Date of Service March 11, 2024 Principal Dx & Hospital Course #1 = Principal Diagnosis (1) Nausea & vomitin-year-old female presenting for N/V and abdominal pain, reportedly witnessed self-induced vomiting. Previously identified that panic attacks trigger these episodes of N/V. Recent admission 02/28-03/04 in which she was diagnosed with esophagitis and esophageal ulcer on EGD. she reports a diagnosis of diabetic gastroparesis diagnosed at [facility]. based on some limited outpatient records I obtained she has frequent ED visits for same symptomatology and often witnessed to self-induce vomiting - CT A/P: No acute infectious/inflammatory findings, trace pleural effusions, distal esophagus wall mildly thickened (esophagitis); small hiatal hernia, gallbladder surgically absent, appendix absent - Presentation consistent with possible flair of diabetic gastroparesis and/or somatic manifestation of anxiety, psychogenic symptoms, or self-harm behavior - continue Pepcid Protonix and Carafate - stop Compazine changed to oral Phenergan for nausea which she uses at home. She reports Phenergan is working a little bit. - continue risperidone 0.5 mg ODT before every meal, continue trial of this although states she does not perceive benefit at this time - metoclopramide is contraindicated with her psychiatric medications - discussed effect of improved glycemic control on functioning of the GI system and that it can improve gastroparesis. It was previously discussed with her that there is concern she is getting a lot of unnecessary radiation from - -- frequent abdominal CT scans because of ED presentations with nausea vomiting and abdominal pain - recommended frequent small meals -please avoid opioids (especially IV) and IV benzodiazepines. Per Psych - recommend 1mg Lorazepam QD PRN. I discussed going home today and she is agreeable. (2) Esophagitis: H/o intractable N/V and coffee-ground appearance of emesis (02/28); History of GERD, on carafate, protonix, pepcid. Follow with Gareth bearden diagnosed with gastroparesis. - No recent coffee ground emesis, no blood noted otherwise; H&H improved - No recent abx (previously prescribed Doxycycline but did not take) - T1DM; consider diabetes related gastroparesis/dysmotility as contributing factor - GI consulted- EGD 03/01--> esophageal ulcer w/ bleeding at the lower third of esophagus, appearance of gastric congestion from likely a pill; dispersed medium erosions of recent bleeding in gastric body likely 2/2 to NG tube. - Management as above (#1) (3) MDD (major depressive disorder), recurrent, in partial remission: Multiple mental health diagnosed disorders - PTSD, schizoaffective Disorder, MDD, Anxiety - Multiple prior admissions at inpatient psychiatric facilities - psych gave her resources today to get set up with counseling. - Continue Invega injection as scheduled; no longer taking prazosin or Valium - Denies active suicidal thoughts or plans for suicide - Continue Doxazosin 2mg daily, 3 mg qHS - Continue clonazepam 0.5 mg ODT twice daily and as needed (for breakthrough anxiety) - Continue remeron qHS - increased to 30 mg - She is taking Trintellix 10 mg in the afternoon, however, this is not available in the hospital formulary - Invega injections outpatient - Continue to follow with Psych. They have provided some DBT resources and working getting a counselor sooner, behavioral health liaison plan to call her significant other (4) Type 1 diabetes: 1DM; at home Lantus 20U daily, 19 U HS - Most recent A1C 7.8% (03/01) - T2DM diet - BSG ACHS if eating, q6h if npo - Adjust regimen as needed - Pharmacy glycemic management consulted. BG 180-220, control more difficult because of inconsistent po Reports she has a dexcom at home but has not been using because the sensor is incompatible with CT scans and she keeps having to take it off. Restart Dexcom. Plan HLD- Continue atorvastatin Edema- Continue furosemide prn Continue metoprolol tartrate 25mg BID VTE prophylaxis: Lovenox 40 SQ In the future please avoid reflexively ordering abdominal CT scans if she presents with her stereotypical symptoms, benign labs and exam. Admission HPI Per Admitting Provider Patient is a 39-year-old female presenting to ED for ongoing nausea, vomiting, and abdominal pain. Reported to have been self inducing emesis. Last admission 02/28-03/04; diagnosed with esophagitis after EGD. ED course: CBC- WBC 4.74, H&H 11.4/33.3, lymphs 0.69, calcium 8.5, AST 11, lipase 7, UA revealed 3+ glucose, 2+ ketones, 2+ blood, no bacteria; toxicology positive for gallo odiazepines; CT abdomen pelvis reveals no acute infectious/inflammatory findings, trace pleural effusions, thickening of distal esophagus wall; no gallbladder, no appendix. Provided with dicyclomine, famotidine, droperidol, and 1 L IVF. Patient is a 39-year-old female with PMHx recent hospital admission resulting in diagnosis of esophagitis from EGD, depression, PTSD, panic attacks, and migraine who presents with ongoing abdominal pain as well as nausea/vomiting. She denies any nausea/vomiting at this time. Has not had an episode of emesis in the last 24 hours. She did take the dose of ativan yesterday and reports improvement of her anxiety - she states that she has the ability to take a 3rd dose of clonazepam at home if she is feeling anxious, and that generally helps. stone sandblaster is at the bedside - reports that she has no further recommendations - patient has been provided the necessary paperwork to get set up with outpatient counseling, which Fallen is agreeable to. Discharge Exam Constitutional WD/WN, vitals as above Neck trachea midline Respiratory normal respiratory effort; no respiratory distress Auscultation: lungs clear to auscultation bilaterally Cardiovascular Rate/Rhythm: regular rate and regular rhythm Extremities: no edema Gastrointestinal (Abdomen) Inspection/Auscultation: abdomen normal to inspection Percussion/Palpation: abdomen soft; abdomen nontender and no guarding Psychiatric Orientation: alert and oriented x 3 Discharge Plan Discharge Items Patient Disposition: Home - Self-Care Reason For Visit: n/v, abdominal pain Discharge Diagnosis: Nausea, Vomiting Condition on Discharge: Good Activity: Resume your previous activity Non-emergency contact: Primary Care Provider, Psychiatrist and Therapist Call non-emergency contact if: you have any medication questions and your symptoms worsen Follow-up/Referrals: [facility] [Outside] Bekah Guillermo DO [Primary Care Provider] - Diet: Carb Count or DM1 Addtl Attending Provider Instructions: Continue to take outpatient medications as prescribed. Follow up with your PCP and psychiatry/psychology and counselor. Use the resources provided by Inpatient Psych. Pending Studies at Discharge: No Stand-Alone Forms: My [facility], Smoking Cessation Medications and DC Order Prescriptions: No Action metoprolol tartrate 25 mg Tablet 12.5 mg PO BID Qty: 0 Rx Instructions: Unable to verify med at this date/time. Last filled 01/08/24 x30 day supply. atorvastatin 40 mg tablet 40 mg PO HS Rx Instructions: Unable to verify med at this date/time. Last filled 01/08/24 x30 day supply. furosemide 20 mg tablet 20 mg PO DAILY PRN (Reason: Swelling) mirtazapine [Remeron] 15 mg tablet 15 mg PO HS Invega Sustenna 234 mg/1.5 mL syringe 234 mg IM UD Rx Instructions: Q28 days - Due on 03/15/2024 clonazepam 0.5 mg tablet,disintegrating 0.5 mg PO BID Qty: 70 0RF Rx Instructions: can take an extra 0.5mg once daily prn panic attack oxycodone 5 mg Tablet 5 mg PO BID PRN (Reason: moderate-severe pain) Qty: 10 0RF cholecalciferol (vitamin D3) 25 mcg (1,000 unit) Capsule 50 mcg PO QAM Qty: 60 0RF Rx Instructions: Unable to verify meds at this date/time. sucralfate 100 mg/mL suspension 1,000 mg PO ACHS insulin aspart U-100 100 unit/mL (3 mL) insulin pen See Rx Instructions .ROUTE .COMPLEX Rx Instructions: Inject 5 units w/ small carb meal, 8 units w/ medium carb meal and 12 units w/ large carb meal insulin glargine [Lantus Solostar U-100 Insulin] 100 unit/mL (3 mL) insulin pen 20 unit SUBCUT BID Trintellix 10 mg tablet 10 mg PO DAILY topiramate 150 mg capsule,sprinkle,ER 24hr 150 mg PO HS Abilify Maintena 400 mg suspension,extended rel syring 400 mg IM MONTHLY pantoprazole 40 mg tablet,delayed release (DR/EC) 0 mg PO BID Rx Instructions: Unable to verify med at this date/time. Original Directions: 40mg by mouth twice daily doxazosin 2 mg tablet See Rx Instructions .ROUTE .COMPLEX Rx Instructions: Take 2mg qam and 3mg (1.5 tablets) at bedtime famotidine 20 mg tablet 20 mg PO BID Rx Instructions: Unable to verify med at this date/time. Last filled 01/19/24 x30 day supply Admission Data Admit Date/Time: 03/08/24 09:03 Attending Provider: Crystal Shipley Admit Provider: Crystal Shipley Primary Care Provider: Bekah Guillermo Other Providers: Crystal Shipley; Karolina Chau; Fazal Little; Frida Gibson; Bessie Garcia; Duke Levine; Maxine Carrizales Hospital Stay Data Consultations 03/08/24 07:53 ED Decision to Admit Stat 03/08/24 09:03 Consult Psychiatry Routine Diagnostic Imagining Performed 03/08/24 05:56 CT Abd and Pelvis [CT abd pelvis IV con only] Stat Discharge Instructions Given to Patient (Per Discharging Provider) Continue to take outpatient medications as prescribed. Follow up with your PCP and psychiatry/psychology and counselor. Use the resources provided by Inpatient Psych. Total Time Total Time Spent Total Time Spent (In Minutes): 25 Coding [place] [address] IN/OBS DISCH 30 MIN/LESS Patient Type Established History Expanded Problem Focused Exam Expanded Problem Focused Medical Decision Making Moderate Complexity Diagnoses Nausea & vomiting R11.2 Vomiting type: unspecified Esophagitis K20.90 MDD (major depressive disorder), recurrent, in partial remission F33.41 Type 1 diabetes E10.9 Diabetes mellitus complication status: without complication
[2024-03-11 14:05] VITALS: BP 92/60; PULSE 61; TEMP 98.6; O2SAT 92
--- NOTE | 2024-03-11 17:24 | Electrocardiogram Report ---
Test Reason : Blood Pressure : */* mmHG Vent. Rate : 55 BPM Atrial Rate : 55 BPM P-R Int : 186 ms QRS Dur : 82 ms QT Int : 482 ms P-R-T Axes : 66 44 55 degrees QTcB Int : 461 ms Sinus bradycardia with occasional Premature ventricular complexes Otherwise normal ECG When compared with ECG of 29-Feb-2024 16:33, Premature ventricular complexes are now Present Vent. rate has decreased by 58 bpm Non-specific change in ST segment in Inferior leads Confirmed by Alma Rosa Pearson (Aleks) on 03/11/2024 5:23:51 PM Referred By: REFERRED SELF Confirmed By: Alma Rosa Pearson
== END 2024-03-11 18:35 | disposition home or self-care (01) ==
LOC: ED 05:24 → EDINP 05:24 → 3N 13:32

== ENCOUNTER 2024-04-01 12:14 | Observation (INO) ==
[2024-04-01 13:12] LABS: Appearance Urine Clear (Clear); Bacteria Urine Automated None Seen (None Seen); Bilirubin Urine Negative (Negative); Blood Urine Negative (Negative); Color Urine Yellow; Glucose Urine UA 2+ (Negative); Ketones Urine 4+ (Negative); Leukocyte Esterase Urine Negative (Negative); Nitrite Urine Negative (Negative); Protein Urine 1+ (Negative); RBC Urine Automated 0-2 /hpf (0-2); Specific Gravity Urine 1.036 (1.000-1.030); Urobilinogen Urine Negative (Negative); WBC Urine Automated 0-5 /hpf (0-5)
[2024-04-01] MEDS: METOCLOPRAMIDE HCL INJ 5 MG/ML 2 ML VIAL IV STA (13:54)
[2024-04-01] MEDS: SODIUM CHLORIDE 0.9% 1,000 ML IV SCH ×2 (13:54→15:48)
[2024-04-01] MEDS: diphenhydrAMINE 50 MG/ML VIAL IV STA (13:55)
[2024-04-01 14:02] LABS: Basophils # (auto) 0.01 K/uL (0.00-0.20); Basophils % (auto) 0.1 %; Hemoglobin 11.2 g/dl (12.0-16.0); Immature Granulocytes # (auto) 0.03 K/uL (0.01-0.20); Immature Granulocytes % (auto) 0.4 %; Lymphocytes # (auto) 0.96 K/uL (1.20-3.40); Lymphocytes % (auto) 13.3 %; Mean Corpuscular Hemoglobin 26.7 pg (25.0-34.0); Mean Corpuscular Hgb Conc 32.9 g/dL (32.0-36.0); Monocytes # (auto) 0.64 K/uL (0.11-0.59); Monocytes % (auto) 8.9 %; Neutrophils # (auto) 5.57 K/uL (1.40-6.50); Neutrophils % (auto) 77.3 %; Platelet Count 227 K/uL (130-400); RDW Standard Deviation 37.7 fL (36.4-46.3); White Blood Count 7.21 K/ul (4.8-10.8)
[2024-04-01 14:21] LABS: Anion Gap 11 (3-11); BUN Creatinine Ratio 16.4 (10-20); Blood Urea Nitrogen 11 mg/dl (6-23); Calcium 8.5 mg/dl (8.6-10.3); Carbon Dioxide 25 mmol/L (21-32); Chloride 105 mmol/L (98-107); Glucose 239 mg/dl (70-99(Fasting)); Potassium 3.9 mmol/L (3.5-5.1); Sodium 141 mmol/L (136-145)
[2024-04-01 14:28] LABS: Alanine Aminotransferase 11 U/L (7-52); Albumin Globulin Ratio 1.2 (0.9-2); Alkaline Phosphatase 69 U/L (34-104); Aspartate Aminotransferase 12 U/L (13-39); Bilirubin,Total 0.6 mg/dl (0.2-1.0); Globulin 3.4 gm/dl (2.5-4.0); Lipase < 3 U/L (11-82); Total Protein 7.4 gm/dl (6.0-8.3)
[2024-04-01] MEDS: PROMETHAZINE 12.5 MG/50.5 ML BAG IV STA (15:02)
[2024-04-01] MEDS: OPTIRAY 320 100ml IV ONE (16:01)
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
--- NOTE | 2024-04-01 16:17 | CT Scan Report ---
EXAM: CT Abdomen and Pelvis With Intravenous Contrast INDICATION: Nausea and vomiting. Pain. TECHNIQUE: Axial computed tomography images of the abdomen and pelvis with intravenous contrast. Sagittal and coronal reformatted images were created and reviewed. This CT exam was performed using one or more of the following dose reduction techniques: automated exposure control, adjustment of the mA and/or kV according to patient size, and/or use of iterative reconstruction technique. CONTRAST: 94ml of Optiray 320 was administered intravenously. COMPARISON: 03/08/2024 FINDINGS: Limitations: None. Lung bases: No abnormality noted. Pleural space: No visualized pleural effusion or pneumothorax. Heart: No abnormality noted. Mediastinum: Distal esophagus is collapsed. ABDOMEN: Liver: No abnormality noted. Gallbladder and bile ducts: Cholecystectomy. No ductal dilation or stone noted. Pancreas: Homogeneous enhancement. No mass, inflammation or ductal dilation. Spleen: No significant abnormality noted. Adrenals: No significant abnormality noted. Kidneys and ureters: Normal enhancement. No mass, hydronephrosis or visualized stone. Stomach and bowel: No distension or mucosal thickening. No inflammation noted or obstruction. PELVIS: Appendix: No findings to suggest acute appendicitis. Bladder: No filling defects to suggest mass or large stone. No inflammation. Reproductive: Incidental dominant follicle right ovary. ABDOMEN and PELVIS: Intraperitoneal space: Trace fluid in the cul-de-sac. No abscess. No free air. Bones/joints: Chronic appearing mild compression deformity of the supreme plate of L3 unchanged. No acute osseous abnormality. Soft tissues: Laparotomy changes with scarring of the abdominal wall. There is a stable right paramedian ventral hernia containing fat. Vasculature: Atherosclerotic calcification of the aorta and branches. No aneurysm. Mild atherosclerotic calcification of the iliac vessels. No aneurysm or dissection. Lymph nodes: No pathologically enlarged lymph nodes. IMPRESSION: No intestinal obstruction or inflammatory process noted. Stable chronic changes. ACT 112: Negative or not required by law. Electronically signed by Maral Barrientos 04-01-2024 4:17 PM
--- NOTE | 2024-04-01 16:51 | Emergency Department Note ---
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 mcg/dl TIBC 341 (250-450) mcg/dl Unsaturated IBC 268 (155-355) mcg/dl Transferrin % Sat 21 (15-50) % Ferritin 14.0 (8-388) ng/ml Total Bilirubin (0.2-1.0) mg/dl AST (13-39) U/L ALT (7-52) U/L Alkaline Phosphatase (34-104) U/L Troponin I High Sens (0-14) pg/ml Total Protein (6.0-8.3) gm/dl Albumin (3.4-5.0) gm/dl Globulin (2.5-4.0) gm/dl Albumin/Globulin Ratio (0.9-2) Lipase (11-82) U/L Vitamin B12 (180-914) pg/ml Folate (>5.38) ng/ml TSH 1.677 (0.300-4.500) uIu/ml HCG, Qual (Negative) Urine Color Urine Appearance (Clear) Urine pH (4.5-7.5) Ur Specific [place] (1.000-1.030) Urine Protein (Negative) Urine Glucose (UA) (Negative) Urine Ketones (Negative) Urine Blood (Negative) Urine Nitrite (Negative) Urine Bilirubin (Negative) Urine Urobilinogen (Negative) Ur Leukocyte Esterase (Negative) Urine WBC (Auto) (0-5) /hpf Urine RBC (Auto) (0-2) /hpf U Hyaline Cast (Auto) (0-2) /lpf U Epithel Cells (Auto) (0-2) /hpf Urine Bacteria (Auto) (None Seen) IgA (47-310) mg/dL Tiss Transglutamin IgA U/mL Celiac Disease Interp 04/02/24 04/02/24 04/02/24 Range/Units 12:21 17:11 20:28 WBC (4.8-10.8) K/ul RBC (4.20-5.40) M/uL Hgb (12.0-16.0) g/dl Hct (37.0-47.0) % MCV (80.0-100.0) fL MCH (25.0-34.0) pg MCHC (32.0-36.0) g/dL RDW Std Deviation (36.4-46.3) fL RDW Coeff of Amy (11.5-14.5) % Plt Count (130-400) K/uL MPV (9.4-12.4) fL Immature Gran % (Auto) % Neut % (Auto) % Lymph % (Auto) % [place] % (Auto) % Eos % (Auto) % Baso % (Auto) % Neut # (Auto) (1.40-6.50) K/uL Lymph # (Auto) (1.20-3.40) K/uL [place] # (Auto) (0.11-0.59) K/uL Eos # (Auto) (0.00-0.50) K/uL Baso # (Auto) (0.00-0.20) K/uL Immature Gran # (Auto) (0.01-0.20) K/uL Absolute Nucleated RBC Nucleated RBC % (auto) Platelet Estimate Sodium (136-145) mmol/L Potassium (3.5-5.1) mmol/L Chloride (98-107) mmol/L Carbon Dioxide (21-32) mmol/L Anion Gap (3-11) BUN (6-23) mg/dl Creatinine (0.6-1.2) mg/dl Est Cr Clr Drug Dosing eGFR BUN/Creatinine Ratio (10-20) Glucose (70-99(Fasting)) mg/dl POC Glucose 112 H 160 H 193 H (70-99) mg/dl Calcium (8.6-10.3) mg/dl Magnesium (1.7-2.4) mg/dl Iron (35-150) mcg/dl TIBC (250-450) mcg/dl Unsaturated IBC (155-355) mcg/dl Transferrin % Sat (15-50) % Ferritin (8-388) ng/ml Total Bilirubin (0.2-1.0) mg/dl AST (13-39) U/L ALT (7-52) U/L Alkaline Phosphatase (34-104) U/L Troponin I High Sens (0-14) pg/ml Total Protein (6.0-8.3) gm/dl Albumin (3.4-5.0) gm/dl Globulin (2.5-4.0) gm/dl Albumin/Globulin Ratio (0.9-2) Lipase (11-82) U/L Vitamin B12 (180-914) pg/ml Folate (>5.38) ng/ml TSH (0.300-4.500) uIu/ml HCG, Qual (Negative) Urine Color Urine Appearance (Clear) Urine pH (4.5-7.5) Ur Specific [place] (1.000-1.030) Urine Protein (Negative) Urine Glucose (UA) (Negative) Urine Ketones (Negative) Urine Blood (Negative) Urine Nitrite (Negative) Urine Bilirubin (Negative) Urine Urobilinogen (Negative) Ur Leukocyte Esterase (Negative) Urine WBC (Auto) (0-5) /hpf Urine RBC (Auto) (0-2) /hpf U Hyaline Cast (Auto) (0-2) /lpf U Epithel Cells (Auto) (0-2) /hpf Urine Bacteria (Auto) (None Seen) IgA (47-310) mg/dL Tiss Transglutamin IgA U/mL Celiac Disease Interp 04/03/24 04/03/24 04/03/24 Range/Units 07:47 08:14 12:09 WBC 5.62 (4.8-10.8) K/ul RBC 3.49 L (4.20-5.40) M/uL Hgb 9.3 L (12.0-16.0) g/dl Hct 28.8 L (37.0-47.0) % MCV 82.5 (80.0-100.0) fL MCH 26.6 (25.0-34.0) pg MCHC 32.3 (32.0-36.0) g/dL RDW Std Deviation 38.9 (36.4-46.3) fL RDW Coeff of Amy 12.9 (11.5-14.5) % Plt Count 194 (130-400) K/uL MPV 11.2 (9.4-12.4) fL Immature Gran % (Auto) % Neut % (Auto) % Lymph % (Auto) % [place] % (Auto) % Eos % (Auto) % Baso % (Auto) % Neut # (Auto) (1.40-6.50) K/uL Lymph # (Auto) (1.20-3.40) K/uL [place] # (Auto) (0.11-0.59) K/uL Eos # (Auto) (0.00-0.50) K/uL Baso # (Auto) (0.00-0.20) K/uL Immature Gran # (Auto) (0.01-0.20) K/uL Absolute Nucleated RBC Nucleated RBC % (auto) Platelet Estimate Normal Sodium 140 (136-145) mmol/L Potassium 4.1 (3.5-5.1) mmol/L Chloride 111 H (98-107) mmol/L Carbon Dioxide 24 (21-32) mmol/L Anion Gap 5 (3-11) BUN 9 (6-23) mg/dl Creatinine 0.61 (0.6-1.2) mg/dl Est Cr Clr Drug Dosing 143.4 eGFR 115.83 BUN/Creatinine Ratio 14.8 (10-20) Glucose 217 H (70-99(Fasting)) mg/dl POC Glucose 193 H 152 H (70-99) mg/dl Calcium 7.8 L (8.6-10.3) mg/dl Magnesium (1.7-2.4) mg/dl Iron (35-150) mcg/dl TIBC (250-450) mcg/dl Unsaturated IBC (155-355) mcg/dl Transferrin % Sat (15-50) % Ferritin (8-388) ng/ml Total Bilirubin (0.2-1.0) mg/dl AST (13-39) U/L ALT (7-52) U/L Alkaline Phosphatase (34-104) U/L Troponin I High Sens (0-14) pg/ml Total Protein (6.0-8.3) gm/dl Albumin (3.4-5.0) gm/dl Globulin (2.5-4.0) gm/dl Albumin/Globulin Ratio (0.9-2) Lipase (11-82) U/L Vitamin B12 (180-914) pg/ml Folate (>5.38) ng/ml TSH (0.300-4.500) uIu/ml HCG, Qual (Negative) Urine Color Urine Appearance (Clear) Urine pH (4.5-7.5) Ur Specific [place] (1.000-1.030) Urine Protein (Negative) Urine Glucose (UA) (Negative) Urine Ketones (Negative) Urine Blood (Negative) Urine Nitrite (Negative) Urine Bilirubin (Negative) Urine Urobilinogen (Negative) Ur Leukocyte Esterase (Negative) Urine WBC (Auto) (0-5) /hpf Urine RBC (Auto) (0-2) /hpf U Hyaline Cast (Auto) (0-2) /lpf U Epithel Cells (Auto) (0-2) /hpf Urine Bacteria (Auto) (None Seen) IgA (47-310) mg/dL Tiss Transglutamin IgA U/mL Celiac Disease Interp 04/03/24 Range/Units 17:15 WBC (4.8-10.8) K/ul RBC (4.20-5.40) M/uL Hgb (12.0-16.0) g/dl Hct (37.0-47.0) % MCV (80.0-100.0) fL MCH (25.0-34.0) pg MCHC (32.0-36.0) g/dL RDW Std Deviation (36.4-46.3) fL RDW Coeff of Amy (11.5-14.5) % Plt Count (130-400) K/uL MPV (9.4-12.4) fL Immature Gran % (Auto) % Neut % (Auto) % Lymph % (Auto) % [place] % (Auto) % Eos % (Auto) % Baso % (Auto) % Neut # (Auto) (1.40-6.50) K/uL Lymph # (Auto) (1.20-3.40) K/uL [place] # (Auto) (0.11-0.59) K/uL Eos # (Auto) (0.00-0.50) K/uL Baso # (Auto) (0.00-0.20) K/uL Immature Gran # (Auto) (0.01-0.20) K/uL Absolute Nucleated RBC Nucleated RBC % (auto) Platelet Estimate Sodium (136-145) mmol/L Potassium (3.5-5.1) mmol/L Chloride (98-107) mmol/L Carbon Dioxide (21-32) mmol/L Anion Gap (3-11) BUN (6-23) mg/dl Creatinine (0.6-1.2) mg/dl Est Cr Clr Drug Dosing eGFR BUN/Creatinine Ratio (10-20) Glucose (70-99(Fasting)) mg/dl POC Glucose 110 H (70-99) mg/dl Calcium (8.6-10.3) mg/dl Magnesium (1.7-2.4) mg/dl Iron (35-150) mcg/dl TIBC (250-450) mcg/dl Unsaturated IBC (155-355) mcg/dl Transferrin % Sat (15-50) % Ferritin (8-388) ng/ml Total Bilirubin (0.2-1.0) mg/dl AST (13-39) U/L ALT (7-52) U/L Alkaline Phosphatase (34-104) U/L Troponin I High Sens (0-14) pg/ml Total Protein (6.0-8.3) gm/dl Albumin (3.4-5.0) gm/dl Globulin (2.5-4.0) gm/dl Albumin/Globulin Ratio (0.9-2) Lipase (11-82) U/L Vitamin B12 (180-914) pg/ml Folate (>5.38) ng/ml TSH (0.300-4.500) uIu/ml HCG, Qual (Negative) Urine Color Urine Appearance (Clear) Urine pH (4.5-7.5) Ur Specific [place] (1.000-1.030) Urine Protein (Negative) Urine Glucose (UA) (Negative) Urine Ketones (Negative) Urine Blood (Negative) Urine Nitrite (Negative) Urine Bilirubin (Negative) Urine Urobilinogen (Negative) Ur Leukocyte Esterase (Negative) Urine WBC (Auto) (0-5) /hpf Urine RBC (Auto) (0-2) /hpf U Hyaline Cast (Auto) (0-2) /lpf U Epithel Cells (Auto) (0-2) /hpf Urine Bacteria (Auto) (None Seen) IgA (47-310) mg/dL Tiss Transglutamin IgA U/mL Celiac Disease Interp Imaging Data My Impression: CT scan imaging of the abdomen and pelvis with IV contrast was obtained. This was interpreted by me and read by radiology. No mediastinal abnormalities. No appendicitis, and no evidence for obstruction. No masses. No inflammatory conditions are noted. Radiologist's Impression: Abdomen/Pelvis CT 04/01/24 15:47 EXAM: CT Abdomen and Pelvis With Intravenous Contrast INDICATION: Nausea and vomiting. Pain. TECHNIQUE: Axial computed tomography images of the abdomen and pelvis with intravenous contrast. Sagittal and coronal reformatted images were created and reviewed. This CT exam was performed using one or more of the following dose reduction techniques: automated exposure control, adjustment of the mA and/or kV according to patient size, and/or use of iterative reconstruction technique. CONTRAST: 94ml of Optiray 320 was administered intravenously. COMPARISON: 03/08/2024 FINDINGS: Limitations: None. Lung bases: No abnormality noted. Pleural space: No visualized pleural effusion or pneumothorax. Heart: No abnormality noted. Mediastinum: Distal esophagus is collapsed. ABDOMEN: Liver: No abnormality noted. Gallbladder and bile ducts: Cholecystectomy. No ductal dilation or stone noted. Pancreas: Homogeneous enhancement. No mass, inflammation or ductal dilation. Spleen: No significant abnormality noted. Adrenals: No significant abnormality noted. Kidneys and ureters: Normal enhancement. No mass, hydronephrosis or visualized stone. Stomach and bowel: No distension or mucosal thickening. No inflammation noted or obstruction. PELVIS: Appendix: No findings to suggest acute appendicitis. Bladder: No filling defects to suggest mass or large stone. No inflammation. Reproductive: Incidental dominant follicle right ovary. ABDOMEN and PELVIS: Intraperitoneal space: Trace fluid in the cul-de-sac. No abscess. No free air. Bones/joints: Chronic appearing mild compression deformity of the supreme plate of L3 unchanged. No acute osseous abnormality. Soft tissues: Laparotomy changes with scarring of the abdominal wall. There is a stable right paramedian ventral hernia containing fat. Vasculature: Atherosclerotic calcification of the aorta and branches. No aneurysm. Mild atherosclerotic calcification of the iliac vessels. No aneurysm or dissection. Lymph nodes: No pathologically enlarged lymph nodes. IMPRESSION: No intestinal obstruction or inflammatory process noted. Stable chronic changes. ACT 112: Negative or not required by law. Electronically signed by Maral Barrientos 04-01-2024 4:17 PM Blood Pressure Blood Pressure Findings: Normal blood pressure MDM Narrative The patient was evaluated in room B4. Conservative care measures were discussed. IV was established. Labs were obtained. She was placed on a hospital monitor and remained in a sinus rhythm without ectopy. Rate was in the 90s. She was given Reglan 10 mg IV without significant improvement. She was then given Benadryl 25mg and phenergan 12.5 mg IV with mild to moderate improvement. The patient was sent to CT scan for imaging of her abdomen pelvis with IV contrast. This was unremarkable. She was reassured that I find no evidence for obstruction, appendicitis, mass, or significant inflammatory changes. The patient continued to be nauseated and was retching occasionally. She felt she could not go home, and that if she was discharged, she would come right back to the hospital for admission. Because of this, the case was discussed with the [facility] hospitalist. She will be brought in for observation and hydration. Please see their dictation for final management. The patient remained stable while in the ED. She was initially hyperglycemic with significant ketones in her urine. The patient was initially given 1 L normal sterile saline IV bolus due to her urine ketones. She was then hydrated gently using 1 L normal sterile saline at 125 mL/h. Impression & Plan Intractable nausea and vomiting, Hyperglycemia admission for intractable nausea and vomiting. Case was discussed with the [facility] hospitalist. Case was also discussed with Dr. Mon. Discharge Plan Visit Data Chief Complaint: Vomiting Stated Complaint: VOMITING, HEADACHE, HIGH BLOOD PRESSURE ED Provider: Pradeep Mon ED Midlevel Provider: Jorge Doss Discharge Problem: Intractable nausea and vomiting, Hyperglycemia Patient Disposition: Admitted As Inpatient Discharge Instructions Interventions: ED Discharge Assessment Last Done: 04/01/24 17:43
[2024-04-01] MEDS: PANTOprazole 40 MG/10 ML SYR IV ONE (16:54)
[2024-04-01] MEDS: FAMOTIDINE 20MG IV PUSH 20 MG/5 ML SYR IV STA (16:54)
[2024-04-01] MEDS: LORazepam 2 MG/1 ML VIAL IV STA (16:55)
[2024-04-01] MEDS ORDERED: METOPROLOL TARTRATE 1 MG/ML VIAL IV PRN (18:28)
[2024-04-01] MEDS ORDERED: PHARMACY GLYCEMIC MGMT CONSULT PRN (18:28)
[2024-04-01] MEDS ORDERED: ACETAMINOPHEN 325 MG TAB PO PRN (18:28)
[2024-04-01] MEDS ORDERED: DOXAZosin MESYLATE TAB 2 MG TAB PO SCH (18:28)
[2024-04-01] MEDS ORDERED: GLUCOSE 10 TAB/TUBE PO PRN (18:28)
[2024-04-01] MEDS ORDERED: GLUCAGON FOR INJ 1 MG VIAL SQ PRN (18:28)
[2024-04-01] MEDS ORDERED: DEXTROSE 50% 50 ML SYRINGE IV PRN (18:28)
[2024-04-01] MEDS ORDERED: GLUCOSE 40% GEL 15 GM TUBE PO PRN (18:28)
[2024-04-01] MEDS ORDERED: CARBOHYDRATES FOR HYPOGLYCEMIA PO PRN (18:28)
[2024-04-01] MEDS ORDERED: HYDROCODONE/ACETAMINOPHEN 7.5/325MG TAB PO PRN (19:02)
[2024-04-01] MEDS: ONDANSETRON INJ 2 MG/ML 2 ML VIAL IV PRN (19:27)
[2024-04-01] MEDS: LANTUS PER UNIT CHARGE SQ SCH (20:37)
[2024-04-01] MEDS: INSULIN ASPART PER UNIT CHARGE SC SCH ×2 (20:37→23:45)
[2024-04-01] MEDS: ENOXAPARIN INJ 40 MG/0.4 ML SYR SQ SCH (20:37)
[2024-04-01] MEDS: ATORVASTATIN 40 MG TAB PO SCH (21:40)
[2024-04-01] MEDS: SUCRALFATE 1 GM/10 ML UDC PO SCH (21:41)
[2024-04-01] MEDS: clonazePAM 0.25 MG OD TAB PO SCH (21:41)
[2024-04-01] MEDS: DOXAZOSIN MESYLATE 1 MG TAB PO SCH (21:41)
[2024-04-01] MEDS: MIRTAZAPINE TAB 15 MG TAB PO SCH (21:41)
[2024-04-01] MEDS: LOSARTAN POTASSIUM 25 MG TAB PO SCH (21:41)
[2024-04-02 06:26] LABS: Pregnancy Test, Serum Negative (Negative)
[2024-04-02] MEDS: DOXAZosin MESYLATE TAB 2 MG TAB PO SCH (09:21)
[2024-04-02] MEDS: PANTOprazole 40 MG TAB PO SCH (09:22)
[2024-04-02] MEDS: FAMOTIDINE 20 MG TAB PO SCH (09:22)
[2024-04-02] MEDS: risperiDONE 0.5 MG TABLET PO SCH (09:26)
--- NOTE | 2024-04-02 10:02 | Pharmacy Report ---
Pharmacy Glycemic Short Note 2 - Date of Service April 02, 2024 - Glycemic Short BSG Results (Last 24 hours): 04/01/24 04/01/24 04/01/24 13:40 20:10 23:43 Glucose 239 H POC Glucose 208 H 119 H 04/02/24 04/02/24 03:07 07:58 Glucose POC Glucose 131 H 144 H OUTPATIENT ANTIDIABETIC REGIMEN: * Lantus 20 units SC qAM, 19 units SC qPM * Novolog TIDM (5 units w/ small meal, 8 units w/ medium meal, 12 units w/ large meal) HbA1c: 7.8% (03/01/24) ASSESSMENT: * FS is a 39 year old female w/ T1DM who presents w/ intractable nausea/vomiting following turkey dinner * Diet advanced from clear to full liquid, 15 grams CHO documented at breakfast today * Initial insulin orders are reduced compared to outpatient doses. Will continue for now until consistently tolerating diet. PLAN FOR INPATIENT GLYCEMIC CONTROL: * Basal insulin * Lantus 12 units SQ BID * Bolus insulin * NovoLog per scale ACHS or Q6hrs while NPO * Goal Range: Low 110 mg/dL - High 140 mg/dL * Correction Factor: 30 mg/dL/unit * Nutritional / Prandial insulin per carb ratio of 1 unit per 10 grams CHO consumed
[2024-04-02 11:10] LABS: BUN Creatinine Ratio 15.5 (10-20); Calcium 7.6 mg/dl (8.6-10.3); Creatinine Clr Calc Pharmacy 122.3 ml/min; Magnesium 1.8 mg/dl (1.7-2.4); Potassium 3.8 mmol/L (3.5-5.1)
[2024-04-02 11:26] LABS: Thyroid Stimulating Hormone 1.677 uIu/ml (0.300-4.500)
[2024-04-02] MEDS: METOPROLOL SUCC 25MG EXT REL TAB PO SCH (11:30)
[2024-04-02 12:08] LABS: Hematocrit (blood only) 29.8 % (37.0-47.0); Hemoglobin 9.4 g/dl (12.0-16.0); Mean Corpuscular Hemoglobin 26.5 pg (25.0-34.0); Mean Corpuscular Hgb Conc 31.5 g/dL (32.0-36.0); Mean Corpuscular Volume 83.9 fL (80.0-100.0); Mean Platelet Volume 10.7 fL (9.4-12.4); Platelet Count 200 K/uL (130-400); RDW Coefficient of Variation 13.2 % (11.5-14.5); RDW Standard Deviation 40.1 fL (36.4-46.3); Red Blood Count 3.55 M/uL (4.20-5.40); White Blood Count 5.45 K/ul (4.8-10.8)
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
[2024-04-02] MEDS: CYANOCOBALAMIN (B-12) 500 MCG TABLET PO SCH (13:23)
[2024-04-02] MEDS: PROCHLORPERAZINE 5 MG in SYRINGE 4 ML IV PRN (13:24)
[2024-04-03 08:51] LABS: Calcium 7.8 mg/dl (8.6-10.3); Potassium 4.1 mmol/L (3.5-5.1)
[2024-04-03 08:57] LABS: BUN Creatinine Ratio 14.8 (10-20); Creatinine Clr Calc Pharmacy 143.4 ml/min
[2024-04-03 09:03] LABS: Hematocrit (blood only) 28.8 % (37.0-47.0); Hemoglobin 9.3 g/dl (12.0-16.0); Mean Corpuscular Hemoglobin 26.6 pg (25.0-34.0); Mean Corpuscular Hgb Conc 32.3 g/dL (32.0-36.0); Mean Corpuscular Volume 82.5 fL (80.0-100.0); RDW Coefficient of Variation 12.9 % (11.5-14.5); RDW Standard Deviation 38.9 fL (36.4-46.3); Red Blood Count 3.49 M/uL (4.20-5.40); White Blood Count 5.62 K/ul (4.8-10.8)
[2024-04-03 09:07] LABS: Mean Platelet Volume 11.2 fL (9.4-12.4); Platelet Count 194 K/uL (130-400); Platelet Estimate Normal (Normal)
[2024-04-03] MEDS: LANTUS PER UNIT CHARGE SQ SCH ×2 (09:12→20:37)
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
--- NOTE | 2024-04-03 13:15 | Pharmacy Report ---
Pharmacy Glycemic Short Note 2 - Date of Service April 03, 2024 - Glycemic Short BSG Results (Last 24 hours): 04/02/24 04/02/24 04/03/24 17:11 20:28 07:47 Glucose POC Glucose 160 H 193 H 193 H 04/03/24 04/03/24 08:14 12:09 Glucose 217 H POC Glucose 152 H OUTPATIENT ANTIDIABETIC REGIMEN: * Lantus 20 units SC qAM, 19 units SC qPM * Novolog TIDM (5 units w/ small meal, 8 units w/ medium meal, 12 units w/ large meal) HbA1c: 7.8% (03/01/24) ASSESSMENT: 04/03/24: * Blood sugars reasonably controlled yesterday, ranging 112-193 mg/dL * Received 35 units of insulin (24 units of basal and 11 units of prandial/correctional bolus) * Full liquid diet advanced to T1DM, but patient felt nauseated and this was reduced back to full liquid * Will use scaled insulin dose this evening given uncertainty w/ PO intake for rest of day 04/02/24: * FS is a 39 year old female w/ T1DM who presents w/ intractable nausea/vomiting following turkey dinner * Diet advanced from clear to full liquid, 15 grams CHO documented at breakfast today * Initial insulin orders are reduced compared to outpatient doses. Will continue for now until consistently tolerating diet. PLAN FOR INPATIENT GLYCEMIC CONTROL: * Basal insulin * Lantus 20 units SC daily * Lantus 5-10-15 units SC HS (see EHR for details) * Bolus insulin * NovoLog per scale ACHS or Q6hrs while NPO * Goal Range: Low 110 mg/dL - High 140 mg/dL * Correction Factor: 30 mg/dL/unit * Nutritional / Prandial insulin per carb ratio of 1 unit per 8 grams CHO consumed
[2024-04-03 13:26] LABS: IgA Serum 400 mg/dL (47-310); Tis Trans IgA <1.0 U/mL
[2024-04-03] MEDS: SUCRALFATE 1 GM/10 ML UDC PO SCH (13:28)
[2024-04-03] MEDS: SENNA 8.6 MG TAB PO SCH (13:36)
[2024-04-03] MEDS: clonazePAM 0.5 MG TAB PO PRN (16:09)
--- NOTE | 2024-04-03 16:35 | Hospitalist Progress Note ---
Date of Service April 03, 2024 Assessment & Plan (1) Intractable nausea and vomiting: Plan: 39-year-old with diabetes, diabetic gastroparesis, anxiety and mood disorder who has had multiple admissions recently for nausea and vomiting Presented with persistent nausea and vomiting that began the evening of 03/31 CT abd/pelvis hospital day #1 w/o obstruction or other acute pathology Records do report a H/o psychogenic nausea and vomiting in the setting of depression/PTSD (has been witnessed to induce vomiting - records from [place] mention such) EGD 03/01/24 at [facility] showing significant esophagitis with ulceration Despite PPI twice daily, carafate QID, and pepcid BID she continues with odynophagia, etc Cont zofran/compazine prn Cont PPI twice daily Cont pepcid BID Cont carafate QID celiac panel pending gastroenterology consulted recommended follow-up with her outpatient provider, recommended considering a dose of Emend if nausea and vomiting recur she has persistent esophageal dysphagia symptoms, ordered esophagram for tomorrow (2) Gastroparesis: Plan: confirmed on gastric emptying study done at [facility] 10/27/2023 results -- 2-hour gastric retention was 68% (normal 30-60%) 3-hour gastric retention was 48% (normal <30%) 4-hour gastric retention was 40% (normal <10%) poor candidate for reglan given her psychiatric history candidate for "G-POEM" procedure? consider referral to Dr Remy Noguera GI at [facility] (3) Esophagitis: Plan: Seen on recent EGD on 03/[address] Forman - U GI Grade D esophagitis with ulceration seen on that EGD see above (4) Type 1 diabetes: Plan: Last A1c at 7.8% on 03/01/2024 Pharmacy glycemic team is managing and recs appreciated Cont basal-bolus insulin regimen blood glucose near goal last 24 hours (5) Depression: Plan: Cont all home meds Patient receives Invega injections monthly as well (6) Hypertension: Plan: Continue metoprolol Continue losartan (7) Anxiety with somatic features: Plan: Continue home meds for her anxiety she often takes clonazepam 0.5 mg 3 times daily, adjusted orders to reflect that (8) Post traumatic stress disorder (PTSD): Plan: cont all home mental health medicines (9) Takotsubo cardiomyopathy: Plan: dx early Jan [address] [facility] [place] EF 40-45% L heart cath at that time showed non-obstructive CAD (I don't have the cath report) (10) Morbid obesity with body mass index (BMI) of 40.0 to 44.9 in adult: Plan: BMI 41 (11) Iron deficiency: Plan: ferritin level 14 c/w Fe def consider IV venover while here could be an absorption problem vs lack of Fe in diet vs blood loss (due to esophagitis) vs other Plan DVT proph - Lovenox 40 mg SQ q24h B12 level is low-normal - thus, replace with PO B12 1000mcg daily tried soft foods for breakfast but felt stuck in her throat thus resumed full liquid diets midday Admission and Anticipated Discharge Date Admission Date: April 01, 2024 Subjective still nauseated but no emesis today no abdominal pain she feels like food gets stuck in her esophagus after she felt swallows and then she vomits it up, prefers to stay on liquid diet, mostly gets her nutrition from shakes and smoothies at home Physical Exam 2 Physical Exam: PHYSICAL EXAMINATION Last 24h vital signs reviewed, see documentation in flowsheet General: comfortable appearing, no distress HEENT: Normocephalic, atraumatic, pupils round and equal, sclerae anicteric, no conjunctival injection, moist mucus membranes Lungs: Normal respiratory effort. Clear to auscultation bilaterally. No RRW Heart: Regular rate and rhythm, no murmurs. No JVD Abdomen: Soft, nontender, nondistended. Bowel sounds present. Extremities: Warm, dry, well-perfused. No extremity edema. Neuro: Alert and oriented x 4, face symmetric, moves 4 extremities well Psych: Normal affect and behavior Results & Data Results & Data Vital Signs (Past 12 Hours) Vital Signs Temp Pulse Pulse Resp BP Pulse Ox O2 Del Method 04/03/24 14:59 98.2 F 61 18 108/72 96 Room Air 04/03/24 14:07 66 04/03/24 11:05 99.9 F H 62 18 106/66 92 Room Air 04/03/24 07:23 97.9 F 66 20 96/58 L 93 Room Air 04/03/24 07:16 52 L Laboratory Results 04/03/24 08:14 04/03/24 08:14 PG Care Time/CCT Total # of Minutes Spent Total Time Spent with Patient: Total time spent is greater than 50% in coordination of care (as documented) at patient's floor/unit and/or counseling patient: Coding Level of Care Code 13705 SUB INP/OBS CARE 2/35MIN Diagnoses Intractable nausea and vomiting R11.2 Gastroparesis K31.84 Esophagitis K20.90 Type 1 diabetes E10.9 Diabetes mellitus complication status: without complication Depression F32.A Hypertension I10 Anxiety with somatic features F41.8 Post traumatic stress disorder (PTSD) F43.10 Takotsubo cardiomyopathy I51.81 Morbid obesity with body mass index (BMI) of 40.0 to 44.9 in adult E66.01; Z68.41 Iron deficiency E61.1 (4) Type 1 diabetes Diabetes mellitus complication status: without complication Qualified Code(s): E10.9 - Type 1 diabetes mellitus without complications
[2024-04-04 07:15] VITALS: RESP 16; TEMP 97.9; O2SAT 96
[2024-04-04] MEDS: POLYETHYLENE (MIRALAX) 17 GM PACK PO SCH ×2 (08:28)
[2024-04-04] MEDS: LANTUS PER UNIT CHARGE SQ SCH (09:12)
[2024-04-04] MEDS: PROMETHAZINE HCL 25 MG TAB PO SCH (13:12)
--- NOTE | 2024-04-04 14:19 | Fluoroscopy Report ---
LEFT CLINICAL HISTORY: Dysphagia. COMPARISON STUDY: CT of the abdomen and pelvis April 01, 2024. FLUOROSCOPY TIME: 53 seconds FLUOROSCOPY IMAGES: 12 Ka,r: 34.3 mGy FINDINGS: There was mild esophageal dysmotility. A small hiatal hernia was noted. No gastroesophageal reflux was elicited. There was persistent holdup of a 13 mm barium tablet within the distal esophagu s, likely just proximal to the hiatal hernia. The remainder of the images demonstrate narrowing at th is level. IMPRESSION: 1. Small hiatal hernia with persistent holdup of a 13 mm barium tablet within the distal esophagus wi th narrowing at this level on the remainder of the images. An esophageal stricture cannot be excluded . Correlation with upper endoscopy, if not already performed, is recommended. 2. Mild esophageal dysmotility. ACT 112: Negative or not required by law. Electronically signed by: Kal Anand M.D. 04/04/2024 2:18 PM
[2024-04-04 14:41] VITALS: PULSE 68
[2024-04-04 15:36] VITALS: BP 99/63
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
== END 2024-04-04 17:22 | disposition home or self-care (01) | DRG 74 ==
LOC: SUATTDRO → 2N 12:14 → ED 12:14 → SUATTDRO 16:48 → 2N 17:43 → 3W 04-04 00:10

== ENCOUNTER 2024-04-12 20:32 | Observation (INO) ==
[2024-04-12] MEDS: SODIUM CHLORIDE 0.9% 1,000 ML IV ONE (21:24)
[2024-04-12] MEDS: diphenhydrAMINE 50 MG/ML VIAL IV STA (21:25)
[2024-04-12] MEDS: PROCHLORPERAZINE 2 ML IV ONE (21:25)
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
[2024-04-12 21:40] LABS: Albumin Globulin Ratio 1.3 (0.9-2); Albumin Level 3.9 gm/dl (3.4-5.0); BUN Creatinine Ratio 7.5 (10-20); Bilirubin,Total 0.5 mg/dl (0.2-1.0); Calcium 8.7 mg/dl (8.6-10.3); Creatinine Clr Calc Pharmacy 127.3 ml/min; Globulin 3.1 gm/dl (2.5-4.0); Potassium 3.6 mmol/L (3.5-5.1)
[2024-04-12 22:15] LABS: Pregnancy Test, Serum Negative (Negative)
[2024-04-12 22:31] LABS: Basophils # (auto) 0.02 K/uL (0.00-0.20); Basophils % (auto) 0.2 %; Eosinophils # (auto) 0.04 K/uL (0.00-0.50); Eosinophils % (auto) 0.5 %; Hematocrit (blood only) 32.8 % (37.0-47.0); Hemoglobin 11.1 g/dl (12.0-16.0); Immature Granulocytes # (auto) 0.03 K/uL (0.01-0.20); Immature Granulocytes % (auto) 0.4 %; Lymphocytes # (auto) 1.31 K/uL (1.20-3.40); Lymphocytes % (auto) 15.5 %; Mean Corpuscular Hemoglobin 26.6 pg (25.0-34.0); Mean Corpuscular Hgb Conc 33.8 g/dL (32.0-36.0); Mean Corpuscular Volume 78.5 fL (80.0-100.0); Monocytes # (auto) 0.45 K/uL (0.11-0.59); Monocytes % (auto) 5.3 %; Neutrophils # (auto) 6.59 K/uL (1.40-6.50); Neutrophils % (auto) 78.1 %; Platelet Count 205 K/uL (130-400); RDW Coefficient of Variation 12.7 % (11.5-14.5); RDW Standard Deviation 36.2 fL (36.4-46.3); Red Blood Count 4.18 M/uL (4.20-5.40); White Blood Count 8.44 K/ul (4.8-10.8)
[2024-04-12] MEDS: DROPERIDOL 5 MG/2 ML VIAL IV STA (22:53)
[2024-04-12 23:29] LABS: Appearance Urine Clear (Clear); Bacteria Urine Automated None Seen (None Seen); Bilirubin Urine Negative (Negative); Blood Urine Negative (Negative); Cast Urine Automated 0-2 /lpf (0-2); Color Urine Yellow; Epithelial Cell Urine Auto 0-2 /hpf (0-2); Glucose Urine UA 1+ (Negative); Ketones Urine Trace (Negative); Leukocyte Esterase Urine 1+ (Negative); Nitrite Urine Negative (Negative); Protein Urine Negative (Negative); RBC Urine Automated 0-2 /hpf (0-2); Specific Gravity Urine 1.008 (1.000-1.030); Urobilinogen Urine Negative (Negative); WBC Urine Automated 0-5 /hpf (0-5); pH Urine 7.5 (4.5-7.5)
[2024-04-12] MEDS: LABETALOL HCL IV 5 MG/ML 20ML IV STA (23:47)
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
[2024-04-13] MEDS ORDERED: DEXTROSE 50% 50 ML SYRINGE IV PRN (01:57)
[2024-04-13] MEDS ORDERED: CARBOHYDRATES FOR HYPOGLYCEMIA PO PRN (01:57)
[2024-04-13] MEDS ORDERED: GLUCOSE 10 TAB/TUBE PO PRN (01:57)
[2024-04-13] MEDS ORDERED: MIRTAZAPINE TAB 15 MG TAB PO PRN (01:57)
[2024-04-13] MEDS ORDERED: GLUCAGON FOR INJ 1 MG VIAL SQ PRN (01:57)
[2024-04-13] MEDS ORDERED: GLUCOSE 40% GEL 15 GM TUBE PO PRN (01:57)
[2024-04-13] MEDS ORDERED: LANTUS PER UNIT CHARGE SQ STA (02:18)
[2024-04-13] MEDS: LANTUS PER UNIT CHARGE SQ STA (04:44)
[2024-04-13] MEDS: CYANOCOBALAMIN (B-12) 500 MCG TABLET PO SCH (08:37)
[2024-04-13] MEDS: PANTOprazole 40 MG TAB PO SCH (08:38)
[2024-04-13] MEDS: METOPROLOL SUCC 25MG EXT REL TAB PO SCH (08:38)
[2024-04-13] MEDS: FAMOTIDINE 20 MG TAB PO SCH (08:39)
[2024-04-13] MEDS: risperiDONE 0.5 MG TABLET PO SCH (08:39)
[2024-04-13] MEDS: DOXAZosin MESYLATE TAB 2 MG TAB PO SCH ×2 (08:39→20:11)
[2024-04-13] MEDS: clonazePAM 0.5 MG TAB PO SCH (08:40)
[2024-04-13] MEDS: SUCRALFATE 1 GM/10 ML UDC PO SCH (08:40)
[2024-04-13] MEDS: ONDANSETRON INJ 2 MG/ML 2 ML VIAL IV PRN (08:42)
[2024-04-13] MEDS: POLYETHYLENE (MIRALAX) 17 GM PACK PO SCH (08:45)
[2024-04-13] MEDS: INSULIN ASPART PER UNIT CHARGE SC SCH (08:52)
[2024-04-13] MEDS: LANTUS PER UNIT CHARGE SQ SCH (08:53)
--- NOTE | 2024-04-13 14:29 | Hospitalist Progress Note ---
Date of Service April 13, 2024 Assessment & Plan (1) Intractable nausea and vomiting: Plan: 39yo female with history of intractable nausea and vomiting presenting with same. Patient with diabetic gastroparesis as well as psychogenic and panic induced nausea. No clinical or laboratory evidence of dehydration. Electrolytes WNL -Zofran PRN -Compazine PRN -Continue Clonazepam PRN -Continue Riperdal prior to meals added Remeron 30 mg nightly as prior recommendations from psychiatry. If this shows improvement of symptoms patient should discuss with her psychiatrist other options so that she can remain on this medication Patient will need referral for [facility] at discharge for possible "G-POEM" procedure. Nurse navigator confirmed [facility] does not have referal and primary GI ([facility]) has not sent referral. (2) Esophagitis: Plan: Noted on recent EGD -Continue Protonix 40mg po BID -Continue Pepcid 20mg po BID -Continue Carafate (3) Diabetes: Plan: Patient with Type I DM. Last NyrB1C=3.8 on 03/01/24 -Lantus 12u BID -ISS -Goal blood sugar 110 - 140 (4) Depression: Plan: Patient with history of MDD, PTSD, Panic attacks -Continue home medications - Risperdal, Doxazosin and Clonazepam -adding mirtazapine 30mg po hs back to regimen (5) Iron deficiency: Plan: microcytic anemia, ferritin low last admission at 14, transferrin sat low start ferrous sulfate if can tolerate but given nausea would opt for IV iron- will discuss with patient about getting this as inpatient in the morning Plan Dispo: continued inpatient stay as patient does not feel she is well enough to return home yet DVT proh: low risk, encourage ambulation. Admission and Anticipated Discharge Date Admission Date: April 13, 2024 Supervising Physician Co-Signing Physician Notes PA Supervision Note: I did not personally see or examine the patient today, but I verified all benson points of MATTHEW Argueta's assessment and plan with the following exceptions/additions: None Subjective patient seen lying in bed this morning. States that she is still feeling worse than her baseline. Was able to tolerate some Jell-O and pudding this morning. When questioned what she is able to eat at home she relays to me that she is not able to tolerate most solid foods and eats a lot of of Jell-O's and soups. Has not heard from [facility] about referral for potential procedure. Was just discharged from [facility] [place] states that nothing was done for her while she was admitted, stayed multiple nights. Did report that she had approximately 10 days where she felt very good and had no pain, her psychiatrist discontinued the Remeron and the pain returned patient does not drink or smoke cigarettes or marijuana Review of Systems Review of Systems: All systems reviewed & are unremarkable except as noted in Subjective Physical Exam Physical Exam: General: NAD, VS as above Resp: normal respiratory effort, lungs clear to auscultation CV: RRR, no murmur, Abd: normal bowel sounds, soft and complains of pain with palpation. No point tenderness or trigger points identified. Pain seems to be distractible as we are having conversation during my exam Extremities: Moves all extremities, no edema Neuro: A&O x3, Skin: intact, no lesions noted Results & Data Results & Data Vital Signs (Past 12 Hours) Vital Signs Temp Pulse Resp BP Pulse Ox O2 Del Method 04/13/24 12:00 97.7 F 64 18 131/81 95 Room Air 04/13/24 08:00 97.9 F 70 16 119/75 96 Room Air PG Care Time/CCT Total # of Minutes Spent Total Time Spent with Patient: Total time spent is greater than 50% in coordination of care (as documented) at patient's floor/unit and/or counseling patient: Coding Level of Care Code None Diagnoses Intractable nausea and vomiting R11.2 Esophagitis K20.90 Diabetes E11.9 Depression F32.A Iron deficiency E61.1
[2024-04-13] MEDS: PROCHLORPERAZINE 5 MG in SYRINGE 4 ML IV PRN (14:48)
[2024-04-13] MEDS: MIRTAZAPINE TAB 15 MG TAB PO SCH (20:12)
[2024-04-13] MEDS: LOSARTAN POTASSIUM 25 MG TAB PO SCH (20:12)
[2024-04-13] MEDS: ATORVASTATIN 40 MG TAB PO SCH (20:13)
[2024-04-14 07:53] LABS: Magnesium 1.6 mg/dl (1.7-2.4); Potassium 4.3 mmol/L (3.5-5.1)
[2024-04-14 07:59] LABS: BUN Creatinine Ratio 7.8 (10-20); Creatinine Clr Calc Pharmacy 132.9 ml/min
[2024-04-14 08:10] LABS: Basophils # (auto) 0.03 K/uL (0.00-0.20); Basophils % (auto) 0.6 %; Eosinophils % (auto) 1.9 %; Hematocrit (blood only) 28.9 % (37.0-47.0); Hemoglobin 9.5 g/dl (12.0-16.0); Immature Granulocytes # (auto) 0.04 K/uL (0.01-0.20); Immature Granulocytes % (auto) 0.7 %; Lymphocytes # (auto) 1.62 K/uL (1.20-3.40); Lymphocytes % (auto) 30.3 %; Mean Corpuscular Hemoglobin 26.4 pg (25.0-34.0); Mean Corpuscular Hgb Conc 32.9 g/dL (32.0-36.0); Mean Corpuscular Volume 80.3 fL (80.0-100.0); Monocytes # (auto) 0.47 K/uL (0.11-0.59); Monocytes % (auto) 8.8 %; Neutrophils # (auto) 3.09 K/uL (1.40-6.50); Neutrophils % (auto) 57.7 %; Platelet Count 164 K/uL (130-400); White Blood Count 5.35 K/ul (4.8-10.8)
[2024-04-14] MEDS: SENNA 8.6 MG TAB PO PRN (08:44)
[2024-04-14] MEDS: IRON SUCROSE 300 MG in SODIUM CHLORIDE 0.9% 250 ML IV ONE (11:20)
--- NOTE | 2024-04-14 13:34 | Discharge Summary ---
Discharge Summary Date of Service April 14, 2024 Principal Dx & Hospital Course #1 = Principal Diagnosis (1) Intractable nausea and vomitinyo female with history of intractable nausea and vomiting presenting with same. Patient with diabetic gastroparesis as well as psychogenic and panic induced nausea. No clinical or laboratory evidence of dehydration. Electrolytes WNL -Continue Clonazepam PRN -Continue Riperdal prior to meals added Remeron 30 mg nightly as prior recommendations from psychiatry. If this shows improvement of symptoms patient should discuss with her psychiatrist other options so that she can remain on this medication - with much improvement with just one dose, new rx at discharge Rx for phenergran as she feels that helps at home Patient will need referral for [facility] at discharge for possible "G-POEM" procedure. Nurse navigator confirmed [facility] does not have referral and primary GI ([facility]) has not sent referral. - workload sent to nurse navigator at discharge (2) Esophagitis: Noted on recent EGD -Continue Protonix 40mg po BID -Continue Pepcid 20mg po BID -Continue Carafate (3) Diabetes: Patient with Type I DM. Last TzmM8E=3.8 on 03/01/24 continue home meds at discharge (4) Depression: Patient with history of MDD, PTSD, Panic attacks -Continue home medications - Risperdal, Doxazosin and Clonazepam -adding mirtazapine 30mg po hs back to regimen (5) Iron deficiency: microcytic anemia, ferritin low last admission at 14, transferrin sat low - one dose of IV venofer, can defer PO iron for a bit while trying to be able to advance diet for more iron rich foods Plan Dispo: discharge to home today Notes For Next Care Provider would strongly recommend continuing with remeron Admission HPI Per Admitting Provider Nicole Moncada is a 39yo female with history of major depressive disorder, intractable nausea and vomiting, PTSD and panic attacks presenting with abdominal pain. Patient was recently admitted to [facility] with similar symptoms from 02/28 --> 03/04 and again from 03/08 --> 03/11/24. Patient had an EGD performed on 03/01/24 revealing significant esophagitis with ulceration. She has been taking Protonix BID as well as Pepcid and Carafate. She reports feeling improved for a short while Patient has been referred to GI for possible G-POEM procedure She returns this evening with ongoing nausea, vomiting and abdominal pain, unable to tolerate PO intake or medications. Family initially at bedside confirming that patient was unable to go home. ER Course: Prochlorperazine Benadryl Droperidol Discharge Exam General: NAD, VS as above, appears better today Resp: normal respiratory effort, lungs clear to auscultation CV: RRR, no murmur, Abd: normal bowel sounds, nontender to palpation Extremities: Moves all extremities, Neuro: A&O x3, Skin: intact, no lesions noted Discharge Plan Discharge Items Patient Disposition: Home - Self-Care Reason For Visit: INTRACTABLE NAUSEA AND VOMITING Discharge Diagnosis: Gastroparesis Activity: Resume your previous activity Weightbearing: Full weightbearing Non-emergency contact: Primary Care Provider and Transfer Man Call non-emergency contact if: you have any medication questions, your symptoms worsen and your pain is not controlled Follow-up/Referrals: Jordon Black MD [Physician] - ( gastroparesis, possible need for procedure) Bekah Guillermo DO [Primary Care Provider] - ( follow-up in 7 to 10 days) Diet: Carb Count or DM1 Addtl Attending Provider Instructions: Ms. Moncada, You are hospitalized after worsening nausea and vomiting. Thankfully symptoms were controlled with basically your home medications. We added 30 mg of nitrazepam (Remeron) and that seemed to help your symptoms greatly. I would not recommend discontinuing this, if your psychiatrist has issues you should work together to find other medications that you can take to stay on this. A referral will be placed on Tuesday to [facility] for possible procedure for your gastroparesis. I have attached the information for the office above, if you do not hear from them by Tuesday please give them a call. You were given a dose of IV iron to help with your anemia. As you are able to increase your diet, try to add foods that are high in iron like green leafy vegetables and red meat. No changes to your home medications. A refill of Phenergan has been sent to your pharmacy Follow-up appointments: Make an appointment with your primary care physician within one week of discharge. A copy of this summary will be sent to them. Every time you see your primary care physician, or any other doctor, bring your medication list, and a list of questions. CONTACT YOUR PRIMARY CARE PROVIDER if you experience any of the following: Shortness of breath or difficulty breathing Fevers or chills Feeling tired with normal activity or experiencing dizziness or fainting Difficulty following your treatment plan, or difficulty taking medications - worsening nausea or vomiting CALL 911 OR GO TO THE EMERGENCY DEPARTMENT if you experience any of the following: Severe chest pain, or chest pain that radiates (moves) to your jaw or arm Sudden, severe shortness of breath or difficulty breathing Thank you for allowing us to participate in your care. Pending Studies at Discharge: No Stand-Alone Forms: [facility], Smoking Cessation Medications and DC Order Prescriptions: New mirtazapine 15 mg Tablet 30 mg PO HS 30 Days Qty: 60 0RF promethazine 12.5 mg tablet 12.5 mg PO Q6H PRN (Reason: nausea and vomiting) Qty: 20 0RF Continued atorvastatin 40 mg tablet 40 mg PO HS furosemide 20 mg tablet 20 mg PO DAILY PRN (Reason: Swelling) clonazepam 0.5 mg tablet,disintegrating 0.5 mg PO BID Qty: 70 0RF Rx Instructions: can take an extra 0.5mg once daily prn panic attack insulin aspart U-100 100 unit/mL (3 mL) insulin pen See Rx Instructions .ROUTE .COMPLEX Rx Instructions: Inject 5 units w/ small carb meal, 8 units w/ medium carb meal and 12 units w/ large carb meal insulin glargine [Lantus Solostar U-100 Insulin] 100 unit/mL (3 mL) insulin pen 20 unit SUBCUT BID Trintellix 10 mg tablet 10 mg PO DAILY pantoprazole 40 mg tablet,delayed release (DR/EC) 40 mg PO BID doxazosin 2 mg tablet See Rx Instructions .ROUTE .COMPLEX Rx Instructions: Take 2mg qam and 3mg (1.5 tablets) at bedtime risperidone 0.5 mg tablet 0.5 mg PO AC Qty: 30 0RF ondansetron 4 mg tablet,disintegrating 4 mg PO Q8 PRN (Reason: Nausea And Vomiting) Invega Sustenna 234 mg/1.5 mL syringe 234 mg IM MONTHLY Rx Instructions: DUE NOVEMEBER 24 losartan 25 mg tablet 25 mg PO HS metoprolol succinate 25 mg tablet extended release 24 hr 25 mg PO DAILY cyanocobalamin (vitamin B-12) 500 mcg Tablet 1,000 mcg PO QAM Qty: 0 0RF Rx Instructions: over the counter sennosides [Senokot] 8.6 mg Tablet 17.2 mg PO QAM PRN (Reason: constipation) Qty: 0 0RF Rx Instructions: buy over the counter polyethylene glycol 3350 [Miralax] 17 gram Powder In Packet 17 g PO DAILY Qty: 0 0RF sucralfate 100 mg/mL suspension 1,000 mg PO ACHS Qty: 473 0RF famotidine 20 mg tablet 20 mg PO BID Held ferrous sulfate 325 mg (65 mg iron) tablet 325 mg PO Q OTHER DAY Qty: 1 0RF Hold Instructions: Resume on 05/09/24. Rx Instructions: buy over the counter Discontinued mirtazapine [Remeron] 30 mg tablet 15 mg PO HS PRN (Reason: Sleep) Discharge Orders: Discharge Order (Routine); Ordered 04/14/24 Ordered By: Nadine Argueta Admission Data Admit Date/Time: 04/13/24 00:44 Attending Provider: Lit Butler Admit Provider: Kathleen Bergman Primary Care Provider: Bekah Guillermo Hospital Stay Data Pending Results Patient Have Any Pending Studies at Discharge: No Discharge Instructions Given to Patient (Per Discharging Provider) Ms. Moncada, You are hospitalized after worsening nausea and vomiting. Thankfully symptoms were controlled with basically your home medications. We added 30 mg of nitrazepam (Remeron) and that seemed to help your symptoms greatly. I would not recommend discontinuing this, if your psychiatrist has issues you should work together to find other medications that you can take to stay on this. A referral will be placed on Tuesday to [facility] for possible procedure for your gastroparesis. I have attached the information for the office above, if you do not hear from them by Tuesday please give them a call. You were given a dose of IV iron to help with your anemia. As you are able to increase your diet, try to add foods that are high in iron like green leafy vegetables and red meat. No changes to your home medications. A refill of Phenergan has been sent to your pharmacy Follow-up appointments: Make an appointment with your primary care physician within one week of discharge. A copy of this summary will be sent to them. Every time you see your primary care physician, or any other doctor, bring your medication list, and a list of questions. CONTACT YOUR PRIMARY CARE PROVIDER if you experience any of the following: Shortness of breath or difficulty breathing Fevers or chills Feeling tired with normal activity or experiencing dizziness or fainting Difficulty following your treatment plan, or difficulty taking medications - worsening nausea or vomiting CALL 911 OR GO TO THE EMERGENCY DEPARTMENT if you experience any of the following: Severe chest pain, or chest pain that radiates (moves) to your jaw or arm Sudden, severe shortness of breath or difficulty breathing Thank you for allowing us to participate in your care. Total Time Total Time Spent Total Time Spent (In Minutes): Time spent day of discharge 35 minutes including direct patient care, medication reconciliation, documentation, review of labs and images, and coordination of care. Coding Level of Care Code 83854 INP/OBS DISCH >30 MIN Diagnoses Intractable nausea and vomiting R11.2 Esophagitis K20.90 Diabetes E11.9 Depression F32.A Iron deficiency E61.1
[2024-04-14 15:16] VITALS: BP 138/75; PULSE 68; RESP 20; TEMP 98.2; O2SAT 96
[2024-04-14] MEDS: clonazePAM 0.5 MG TAB PO PRN (16:12)
== END 2024-04-14 16:41 | disposition home or self-care (01) ==
LOC: ED 20:32 → 2N 20:32 → SUATTDRO 04-13 00:44 → 2N 04-13 01:18

== ENCOUNTER 2024-06-06 23:58 | Observation (INO) ==
[2024-06-07] MEDS: DROPERIDOL 5 MG/2 ML VIAL IM STA (00:33)
[2024-06-07] MEDS: PROMETHAZINE HCL 25 MG SUPP PR STA (00:34)
[2024-06-07] MEDS: PANTOprazole 40 MG/10 ML SYR IV ONE (00:42)
[2024-06-07] MEDS: SODIUM CHLORIDE 0.9% 1,000 ML IV ONE ×2 (00:42→01:53)
[2024-06-07] MEDS: ACETAMINOPHEN 1,000 MG/100 ML VIAL IV STA (00:45)
[2024-06-07 01:07] LABS: Albumin Globulin Ratio 1.1 (0.9-2); Albumin Level 4.2 gm/dl (3.4-5.0); Bilirubin,Total 0.4 mg/dl (0.2-1.0); Calcium 9.4 mg/dl (8.6-10.3); Globulin 3.7 gm/dl (2.5-4.0); Magnesium 1.6 mg/dl (1.7-2.4); Potassium 3.7 mmol/L (3.5-5.1); Total Protein 7.9 gm/dl (6.0-8.3)
[2024-06-07 01:08] LABS: Basophils # (auto) 0.02 K/uL (0.00-0.20); Basophils % (auto) 0.2 %; Hemoglobin 11.8 g/dl (12.0-16.0); Immature Granulocytes # (auto) 0.03 K/uL (0.01-0.20); Immature Granulocytes % (auto) 0.4 %; Lymphocytes # (auto) 0.83 K/uL (1.20-3.40); Mean Corpuscular Hemoglobin 26.6 pg (25.0-34.0); Mean Corpuscular Hgb Conc 33.7 g/dL (32.0-36.0); Mean Corpuscular Volume 78.8 fL (80.0-100.0); Mean Platelet Volume 11.9 fL (9.4-12.4); Monocytes # (auto) 0.26 K/uL (0.11-0.59); Monocytes % (auto) 3.1 %; Neutrophils % (auto) 86.3 %; Platelet Count 201 K/uL (130-400); RDW Coefficient of Variation 14.8 % (11.5-14.5); RDW Standard Deviation 42.9 fL (36.4-46.3); Red Blood Count 4.44 M/uL (4.20-5.40); White Blood Count 8.34 K/ul (4.8-10.8)
[2024-06-07] MEDS: diphenhydrAMINE 50 MG/ML VIAL IV STA (01:18)
[2024-06-07] MEDS: DICYCLOMINE HCL 10 MG/ML 2 ML AMP/VIAL IM ONE ×2 (01:18→04:00)
[2024-06-07] MEDS: MAGNESIUM SULFATE / D5W 1 GM/100 ML BAG IV STA (01:20)
[2024-06-07 01:22] LABS: Thyroid Stimulating Hormone 1.618 uIu/ml (0.300-4.500)
--- NOTE | 2024-06-07 01:39 | XRay Report ---
EXAM: XR KUB/Abdomen 1 view CLINICAL HISTORY: VOMITING ABD PAIN JMF TECHNIQUE: X-ray images of the abdomen were obtained in the supine position. COMPARISON: previous CT dated 04/01/2024. FINDINGS: Gas Pattern: Fecal loading and ascending colon. The gas pattern within the abdomen is normal. No evidence of bowel obstruction or distention. Soft Tissues: Surgical clips are seen in the right hypochondrium. Soft tissues of the abdomen appear normal without evidence of masses or calcifications. The liver, spleen, and kidneys are of normal size and position. Subtle irregularity is seen at the superior endplate of the L3 vertebra. IMPRESSION: No acute abnormalities were identified. Fecal loading and ascending colon. Electronically signed by Morgan Pugh 06-07-2024 01:38 AM
[2024-06-07 02:52] LABS: Appearance Urine Clear (Clear); Bacteria Urine Automated None Seen (None Seen); Bilirubin Urine Negative (Negative); Blood Urine Negative (Negative); Cast Urine Automated 0-2 /lpf (0-2); Color Urine Yellow; Epithelial Cell Urine Auto 0-2 /hpf (0-2); Glucose Urine UA 2+ (Negative); Ketones Urine 2+ (Negative); Leukocyte Esterase Urine Negative (Negative); Nitrite Urine Negative (Negative); Protein Urine Negative (Negative); RBC Urine Automated 0-2 /hpf (0-2); Specific Gravity Urine 1.013 (1.000-1.030); Urobilinogen Urine Negative (Negative); WBC Urine Automated 0-5 /hpf (0-5); pH Urine 8.5 (4.5-7.5)
[2024-06-07] MEDS: FAMOTIDINE 20MG IV PUSH 20 MG/5 ML SYR IV STA (04:01)
[2024-06-07] MEDS: PROMETHAZINE 25 MG/51 ML BAG IV STA (06:07)
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
[2024-06-07] MEDS: MoRPHine SULFATE 4 MG/ML 1 ML CARP\\VIAL IV STA (07:47)
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
[2024-06-07 09:02] LABS: Influenza A virus by PCR Negative (Neg); Influenza B virus by PCR Negative (Neg); RSV by PCR Negative (Neg); SARS CoV2 RNA(COVID-19) Ceph NEGATIVE (Negative)
[2024-06-07 09:19] LABS: Estimated Average Glucose 140 mg/dl; Hemoglobin A1C 6.5 % (4.5-5.6)
[2024-06-07] MEDS ORDERED: DEXTROSE 50% 50 ML SYRINGE IV PRN (09:35)
[2024-06-07] MEDS ORDERED: GLUCAGON FOR INJ 1 MG VIAL SQ PRN (09:35)
[2024-06-07] MEDS: NSS + 20MEQ KCL 20 MEQ/1,000 ML BAG IV SCH (10:33)
[2024-06-07] MEDS: CAPSAICIN CR 0.075% 60 GM TUBE EXT PRN (10:35)
[2024-06-07] MEDS: SUCRALFATE 1 GM/10 ML UDC PO SCH (10:36)
[2024-06-07] MEDS: clonazePAM 0.25 MG OD TAB PO PRN (10:37)
--- NOTE | 2024-06-07 10:53 | Electrocardiogram Report ---
Test Reason : Blood Pressure : */* mmHG Vent. Rate : 80 BPM Atrial Rate : 80 BPM P-R Int : 152 ms QRS Dur : 82 ms QT Int : 408 ms P-R-T Axes : 51 67 56 degrees QTcB Int : 470 ms Sinus rhythm with occasional Premature ventricular complexes Otherwise normal ECG When compared with ECG of 10-Mar-2024 07:04, Nonspecific T wave abnormality no longer evident in Lateral leads Confirmed by Julito Oliver ([id number]) on 06/07/2024 9:54:11 AM Referred By: REFERRED SELF Confirmed By: Julito Oliver
[2024-06-07] MEDS: MoRPHine SULFATE 2 MG/ML CARP IV PRN (12:44)
[2024-06-07] MEDS: INSULIN ASPART PER UNIT CHARGE SC SCH (13:11)
[2024-06-07] MEDS: PROMETHAZINE 25 MG/51 ML BAG IV PRN (13:47)
[2024-06-07] MEDS: METOPROLOL SUCC 25MG EXT REL TAB PO SCH (13:50)
[2024-06-07] MEDS: LINACLOTIDE 145 MCG CAPSULE PO SCH (13:50)
[2024-06-07] MEDS: risperiDONE 0.5 MG TABLET PO SCH (13:51)
[2024-06-07] MEDS: DOXAZosin MESYLATE TAB 2 MG TAB PO SCH ×2 (14:51→21:40)
[2024-06-07] MEDS: CYANOCOBALAMIN (B-12) 500 MCG TABLET PO SCH (14:51)
[2024-06-07] MEDS: ONDANSETRON INJ 2 MG/ML 2 ML VIAL IV PRN (18:22)
[2024-06-07] MEDS: FAMOTIDINE 20MG IV PUSH 20 MG/5 ML SYR IV SCH (21:32)
[2024-06-07] MEDS: LANTUS PER UNIT CHARGE SQ SCH (21:37)
[2024-06-07] MEDS: PANTOprazole 40 MG/10 ML SYR IV SCH (21:37)
[2024-06-07] MEDS: LOSARTAN POTASSIUM 25 MG TAB PO SCH (21:38)
[2024-06-07] MEDS: ATORVASTATIN 40 MG TAB PO SCH (21:38)
[2024-06-07] MEDS: MIRTAZAPINE TAB 15 MG TAB PO SCH (21:38)
[2024-06-07] MEDS: SODIUM CHLORIDE 0.9% 500 ML IV ONE (23:55)
[2024-06-08] MEDS: SODIUM CHLORIDE 0.9% 500 ML IV ONE (01:14)
[2024-06-08] MEDS: SODIUM CHLORIDE 0.9% 1,000 ML IV ONE (01:48)
--- NOTE | 2024-06-08 01:51 | Communication Note ---
Date of Service: June 08, 2024 Notified by nursing wound 23:55 that the patient was experiencing lightheadedness and hypotension (BP 73/45). Patient received a dose of 2 mg of morphine at 21:33. No signs of respiratory depression. Pupils were reactive to light. A 1,000 mL bolus of NSS was administered and patient was placed on Trendelenburg position. BSG was 152. Symptoms did not improve and hypotension remained, A second bolus of NSS and 50 g of albumin were given. A second IV access was placed. BP improved to 95/59, HR 63, RR 18, and SpO2 94%. Maintenance fluids were resumed. Losartan, Metoprolol, Doxazosin, Morphine, and Clonazepam were held. BMP, magnesium, and lactate were ordered; all results were within normal limits. Will continue to monitor
[2024-06-08] MEDS: ALBUMIN 25% 25 GM/100 ML VIAL IV SCH (02:16)
[2024-06-08 02:45] LABS: BUN Creatinine Ratio 11.7 (10-20); Calcium 6.7 mg/dl (8.6-10.3); Creatinine Clr Calc Pharmacy 116.6 ml/min; Magnesium 1.7 mg/dl (1.7-2.4); Potassium 3.9 mmol/L (3.5-5.1)
[2024-06-08 06:18] LABS: Calcium 7.3 mg/dl (8.6-10.3); Magnesium 1.8 mg/dl (1.7-2.4); Potassium 4.2 mmol/L (3.5-5.1)
[2024-06-08 06:24] LABS: BUN Creatinine Ratio 12.7 (10-20)
[2024-06-08 07:23] LABS: Ferritin 10.8 ng/ml (8-388)
[2024-06-08] MEDS: ACETAMINOPHEN 1,000 MG/100 ML VIAL IV PRN (08:34)
[2024-06-08] MEDS: IRON SUCROSE 300 MG in SODIUM CHLORIDE 0.9% 250 ML IV ONE (08:55)
[2024-06-08] MEDS: dexAMETHasone 6 MG in SYRINGE 0 ML IV ONE (08:55)
[2024-06-08 13:11] LABS: Pregnancy Test, Urine Negative (Negative)
[2024-06-08] MEDS: MoRPHine SULFATE 2 MG/ML CARP IV PRN (13:41)
[2024-06-08] MEDS ORDERED: COSYNTROPIN 250 MCG in SYRINGE 4 ML IV ONE (17:39)
--- NOTE | 2024-06-08 17:44 | Hospitalist Progress Note ---
Date of Service June 08, 2024 Assessment & Plan (1) Intractable nausea and vomiting: Plan: 39-year-old female with PMH of gastroparesis, esophagitis, psychogenic nausea and vomiting, anxiety, PTSD, and Takotsubo cardiomyopathy. She presented on 06/07 for intractable nausea, vomiting, and abdominal pain x 4 days. improved 2nd to gastroparesis? 2nd to "abdominal migraines" / cyclic vomiting syndrome? 2nd to adrenal insufficiency? advance diet to full liquids cosyntropin stim test in am anti-emetics prn for further episodes like this consider Nurted ODT along with anti-emetics for home repeat labs am (2) Gastroparesis: Plan: having G-POEM procedure at [facility] next month cont anti-emetics (3) Esophagitis: Plan: EGD on 03/01/2024 revealed LA grade D esophagitis without bleeding, with noted esophageal ulceration cont PPI bid cont carafate QID cont pepcid BID (4) Abdominal pain: Plan: gastroparesis typically does not cause abd pain thus, is pain from abd migraines/cyclic vomiting? adrenal insuff? esophagitis/gastritis? other? (5) Diabetes: Plan: long-standing type 1 follows with endo in [place] cont lantus cont novolog control acceptable A1c 6.5% No evidence of DKA (6) Hypotension: Plan: occurred overnight symptomatic very dizziness required copious IV fluids, holding BP meds, etc. iatrogenic from BP meds? adrenal insufficiency? vasovagal response? other? cosyntropin stim test in am hold all BP meds limited echo to recheck LV function (7) Iron deficiency: Plan: ferritin 10 venofer 300mg IV x 1 consider repeat tomorrow (8) Takotsubo cardiomyopathy: Plan: repeat limited echo tomorrow to recheck LV function Plan History of recent toe surgery Daily wound care for left and right great toes Can soak the L great toe if desired Abnormal Cortisol level of 2 -- NPO tonight for cosyntropin stim test in am significant other updated via phone while I was in Ms Moncada's room Admission and Anticipated Discharge Date Admission Date: June 07, 2024 Subjective patient feeling better today tolerating clears no further vomiting some nausea but improved abd pain improved but not fully resolved does have long-standing history of migraines 2-3x's/week bitemporal throbbing some photophobia with her headaches we discussed ?abdominal migraines/cyclic vomiting syndrome and that perhaps her N/V spells are due to such we discussed use of dedicated migraine meds if she gets future N/V spells associated with abd pain she has never taken triptans we discussed Nurtec prn discussed low cortisol level and need for stim test Review of Systems Review of Systems: gen - no fevers or chills cv - no chest pain, no orthopnea neuro - no dizziness or lightheadedness today GI - no further emesis pulm - no dyspnea Physical Exam Physical Exam: gen - NAD, obese - looks better today mouth - MMM neck - no JVD heart - RRR, s1 s2, no murmur lungs - CTA b/l abd - soft NT ND BS+; no HSM; no peritoneal signs ext - no edema, pulses 2+ b/l skin - recent onychia surgery R great toe with medial border of toenail removed; clean. Left great toe - toenail completely gone; clean. Results & Data Results & Data Vital Signs (Past 12 Hours) Vital Signs Temp Pulse Pulse Resp BP Pulse Ox O2 Del Method 06/08/24 17:15 64 06/08/24 16:20 37 C 57 L 18 118/74 95 Room Air 06/08/24 11:53 36.6 C 61 18 125/81 91 Room Air 06/08/24 07:47 36.3 C L 61 16 106/64 91 Room Air 06/08/24 07:20 66 06/08/24 06:13 99/61 L Laboratory Results Laboratory Results - last 24 hr 06/08/24 06/08/24 06/08/24 05:43 08:14 12:06 Sodium 143 Potassium 4.2 Chloride 115 H Carbon Dioxide 23 Anion Gap 5 BUN 8 Creatinine 0.63 Est Cr Clr Drug Dosing 144.0 eGFR 114.94 BUN/Creatinine Ratio 12.7 Glucose 127 H POC Glucose 130 H 194 H Calcium 7.3 L Magnesium 1.8 Iron 44 TIBC 286 Transferrin 204 Transferrin % Sat 15 Ferritin 10.8 Urine Test 06/08/24 06/08/24 06/08/24 16:26 20:32 Unknown Sodium Potassium Chloride Carbon Dioxide Anion Gap BUN Creatinine Est Cr Clr Drug Dosing eGFR BUN/Creatinine Ratio Glucose POC Glucose 195 H 177 H Calcium Magnesium Iron TIBC Transferrin Transferrin % Sat Ferritin Urine Test Negative PG Care Time/CCT Total # of Minutes Spent Total Time Spent with Patient: Total time spent is greater than 50% in coordination of care (as documented) at patient's floor/unit and/or counseling patient: Coding Level of Care Code 02554 SUB INP/OBS CARE 3/50MIN Diagnoses Intractable nausea and vomiting R11.2 Gastroparesis K31.84 Esophagitis K20.90 Abdominal pain R10.9 Diabetes E11.9 Hypotension I95.9 Iron deficiency E61.1 Takotsubo cardiomyopathy I51.81
[2024-06-09] MEDS: INSULIN ASPART PER UNIT CHARGE SC SCH ×2 (00:13→12:30)
[2024-06-09] MEDS ORDERED: Nursing to Pharmacy Communication SCH ×2 (00:15→10:45)
[2024-06-09] MEDS: COSYNTROPIN 250 MCG in SYRINGE 4 ML IV ONE (09:53)
[2024-06-09] MEDS: IRON SUCROSE 300 MG in SODIUM CHLORIDE 0.9% 250 ML IV ONE (09:56)
--- NOTE | 2024-06-09 13:12 | XCELERA ---
[id number]
[2024-06-09] MEDS: dexAMETHasone 4 MG TAB PO ONE (17:10)
--- NOTE | 2024-06-09 19:48 | Hospitalist Progress Note ---
Date of Service June 09, 2024 Assessment & Plan (1) Intractable nausea and vomiting: Plan: 39-year-old female with PMH of gastroparesis, esophagitis, psychogenic nausea and vomiting, anxiety, PTSD, and Takotsubo cardiomyopathy. She presented on 06/07 for intractable nausea, vomiting, and abdominal pain x 4 days. improved/resolved 2nd to gastroparesis? 2nd to "abdominal migraines" / cyclic vomiting syndrome? 2nd to adrenal insufficiency? advance diet to T1DM will try to get her cosyntropin stim test in am tomorrow -- hydrate with IV fluids overnight to make her lab sticks more successful anti-emetics prn for further episodes like this in the future consider Nurted ODT along with anti-emetics for home (2) Gastroparesis: Plan: having G-POEM procedure at [facility] next month cont anti-emetics (3) Esophagitis: Plan: EGD on 03/01/2024 revealed LA grade D esophagitis without bleeding, with noted esophageal ulceration cont PPI bid cont carafate QID cont pepcid BID (4) Abdominal pain: Plan: gastroparesis typically does not cause abd pain thus, is pain from abd migraines/cyclic vomiting? adrenal insuff? esophagitis/gastritis? other? (5) Diabetes: Plan: long-standing type 1 follows with endo in [place] cont lantus cont novolog control acceptable A1c 6.5% No evidence of DKA (6) Hypotension: Plan: occurred overnight 2 nights ago symptomatic very dizziness required copious IV fluids, holding BP meds, etc. iatrogenic from BP meds? adrenal insufficiency? vasovagal response? other? cosyntropin stim test in am hold all BP meds except 2mg of cardura at bedtime (used for nightmares) echo with normal EF (7) Iron deficiency: Plan: ferritin 10 venofer 300mg IV x yesterday, will repeat again today, then 3rd dose tomorrow (8) Takotsubo cardiomyopathy: Plan: repeat limited echo today with normalized EF can stop metoprolol but cont ARB due to T1DM Plan History of recent toe surgery Daily wound care for left and right great toes Can soak the L great toe if desired hopefully can d/c home tomorrow Admission and Anticipated Discharge Date Admission Date: June 08, 2024 Subjective unable to complete cosyntropin stim test this am despite multiple sticks/attempts overall feeling fine tolerating liquids she doesn't really eat solids at home - eats crackers - that's about it solids costa no vomiting minimal nausea minimal abd pain Review of Systems Review of Systems: gen - no fevers, no chills, feels stronger today cv - no orthopnea or cp pulm - no dyspnea Physical Exam Physical Exam: gen - NAD, obese - looks well mouth - MMM neck - no JVD heart - RRR, s1 s2, no murmur lungs - CTA b/l abd - soft NT ND BS+; no HSM; no peritoneal signs ext - no edema, pulses 2+ b/l Results & Data Results & Data Vital Signs (Past 12 Hours) Vital Signs Temp Pulse Pulse Resp BP Pulse Ox O2 Del Method 06/09/24 19:40 36.8 C 52 L 16 133/83 98 Room Air 06/09/24 16:30 36.5 C 54 L 18 120/75 95 Room Air 06/09/24 13:57 56 L 06/09/24 11:41 36.6 C 48 L 18 119/66 97 Room Air 06/09/24 09:33 Room Air 06/09/24 07:57 36.4 C L 45 L 18 122/69 92 Room Air Laboratory Results unable to obtain labs PG Care Time/CCT Total # of Minutes Spent Total Time Spent with Patient: Total time spent is greater than 50% in coordination of care (as documented) at patient's floor/unit and/or counseling patient: Coding Level of Care Code 59112 SUB INP/OBS CARE 2/35MIN Diagnoses Intractable nausea and vomiting R11.2 Gastroparesis K31.84 Esophagitis K20.90 Abdominal pain R10.9 Diabetes E11.9 Hypotension I95.9 Iron deficiency E61.1 Takotsubo cardiomyopathy I51.81
[2024-06-09] MEDS: DOXAZosin MESYLATE TAB 2 MG TAB PO SCH (20:57)
[2024-06-09] MEDS: SODIUM CHLORIDE 0.9% 1,000 ML IV SCH (22:13)
[2024-06-09 23:13] VITALS: RESP 18
[2024-06-10 03:34] LABS: Albumin Globulin Ratio 1.3 (0.9-2); Albumin Level 3.6 gm/dl (3.4-5.0); BUN Creatinine Ratio 11.9 (10-20); Bilirubin,Total 0.2 mg/dl (0.2-1.0); Calcium 7.6 mg/dl (8.6-10.3); Creatinine Clr Calc Pharmacy 154.6 ml/min; Globulin 2.7 gm/dl (2.5-4.0); Magnesium 1.6 mg/dl (1.7-2.4); Phosphorus 2.4 mg/dl (2.5-4.9); Total Protein 6.3 gm/dl (6.0-8.3)
[2024-06-10] MEDS: MAGNESIUM SULFATE / D5W 1 GM/100 ML BAG IV SCH (03:45)
[2024-06-10] MEDS: INSULIN ASPART PER UNIT CHARGE SC SCH ×2 (06:43→12:55)
[2024-06-10] MEDS ORDERED: Nursing to Pharmacy Communication SCH ×2 (06:45→10:00)
[2024-06-10] MEDS: COSYNTROPIN 250 MCG in SYRINGE 4 ML IV ONE (08:02)
[2024-06-10 08:22] LABS: BUN Creatinine Ratio 10.3 (10-20); Calcium 8.2 mg/dl (8.6-10.3); Creatinine Clr Calc Pharmacy 157.5 ml/min; Potassium 3.9 mmol/L (3.5-5.1)
--- NOTE | 2024-06-10 08:47 | Electrocardiogram Report ---
Test Reason : Blood Pressure : */* mmHG Vent. Rate : 40 BPM Atrial Rate : 40 BPM P-R Int : 178 ms QRS Dur : 86 ms QT Int : 564 ms P-R-T Axes : 64 43 41 degrees QTcB Int : 459 ms Marked sinus bradycardia Abnormal ECG When compared with ECG of 07-Jun-2024 00:02, Premature ventricular complexes are no longer Present Vent. rate has decreased by 40 bpm Confirmed by Roger Francois ([id number]) on 06/10/2024 8:47:30 AM Referred By: REFERRED SELF Confirmed By: Roger Francois
--- NOTE | 2024-06-10 08:48 | Electrocardiogram Report ---
Test Reason : Blood Pressure : */* mmHG Vent. Rate : 40 BPM Atrial Rate : 40 BPM P-R Int : 178 ms QRS Dur : 78 ms QT Int : 568 ms P-R-T Axes : 60 33 43 degrees QTcB Int : 462 ms Marked sinus bradycardia with occasional Premature ventricular complexes Abnormal ECG When compared with ECG of 10-Jun-2024 02:09, Premature ventricular complexes are now Present Confirmed by Roger Francois ([id number]) on 06/10/2024 8:48:17 AM Referred By: REFERRED SELF Confirmed By: Roger Francois
[2024-06-10] MEDS: IRON SUCROSE 300 MG in SODIUM CHLORIDE 0.9% 250 ML IV ONE (10:19)
[2024-06-10 11:51] VITALS: TEMP 97.7; O2SAT 97
[2024-06-10] MEDS: HYDROCORTISONE 10 MG TAB PO STA (15:09)
[2024-06-10 15:13] VITALS: BP 95/59; PULSE 100
--- NOTE | 2024-06-10 16:00 | Discharge Summary ---
Discharge Summary Date of Service date of admission - June 07, 2024 date of discharge - June 10, 2024 Principal Dx & Hospital Course #1 = Principal Diagnosis (1) Intractable nausea and vomitin-year-old female with PMH of gastroparesis, esophagitis, psychogenic nausea and vomiting, anxiety, PTSD, and Takotsubo cardiomyopathy. She presented on 06/07 for intractable nausea, vomiting, and abdominal pain x 4 days. improved/resolved while here with anti-emetics and supportive care 2nd to gastroparesis? 2nd to "abdominal migraines" / cyclic vomiting syndrome? 2nd to adrenal insufficiency? psychogenic? combination of factors? initially on clears, then slowly advanced to T1DM diet and tolerated such without nausea/emesis patient received IV dexamethasone then PO hydrocortisone for possible adrenal insufficiency (see below) for future episodes of nausea/vomiting/abdominal pain patient was instructed to try Nurtec ODT with anti-emetics to see if this breaks the episode patient reports at least 2 episodes of migraines per week and thus her N/V/abdominal pain could be cyclic vomiting syndrome/abdominal migraines (as gastroparesis doesn't typically cause abdominal pain) she will continue PPI twice daily & sucralfate QID as previous (2) Gastroparesis: having G-POEM procedure at [facility] June 2024 for her gastroparesis cont anti-emetics prn as previous (3) Esophagitis: EGD on 03/01/2024 revealed LA grade D esophagitis without bleeding, with noted esophageal ulceration cont PPI bid cont carafate QID (4) Abdominal pain: gastroparesis typically does not cause abd pain thus, is pain from abd migraines/cyclic vomiting? adrenal insufficiency? esophagitis/gastritis? other? pain resolved as her nausea/vomiting resolved see discussion above in #1 (5) Abnormal cortisol level: random cortisol level returned low at 2 this was drawn due to hypotension she subsequently received IV fluids & IV dexamethasone while awaiting cosyntropin stim test stim test was performed with results as follows: BASELINE Cortisol - 0.63; collected 06/10/24 0744 30MIN Cortisol - 17.23; collected 06/10/24 0833 1HR Cortisol - 23.57; collected 06/10/24 0903 ACTH level was dispatched the AM of 06/10/24 & was pending at discharge due to symptomatic hypotension, nausea/vomiting/stomach discomfort, etc she was given a prescription for hydrocortisone 15mg qam and hydrocortisone 5mg qafternoon & asked to follow-up with her harness racing handicapper shortly after discharge she sees Dr Chandrakant Ferrera via the [facility] system for her endocrinology needs TSH this admission - 1.6 Free T4 - 0.9 (6) Hypotension: occurred mid-way during her hospitalization symptomatic with dizziness required copious IV fluids, holding BP meds, etc. iatrogenic from BP meds? adrenal insufficiency? vasovagal response to pain? other? cosyntropin stim test performed; results as below all BP meds except 2mg of cardura at bedtime (used for nightmares) and her losartan were continued AM cardura dose and metoprolol succinate were stopped echo showed normal EF (7) Diabetes: long-standing type 1 follows with endocrinology in [place] cont lantus cont novolog control acceptable while here HbA1c 6.5% No evidence of DKA (8) Iron deficiency: ferritin level of 10 patient does NOT eat iron-rich foods at home PPI therapy could be contributing to iron deficiency as well can't rule out occult GI blood loss from her chronic GI problems venofer 300mg IV x 3 doses given while hospitalized hemoglobin was 11.8 while here (9) Takotsubo cardiomyopathy: dx 2023 follows with cardiology in [place] repeat limited echo this admission with normalized EF of 60-65% stopped metoprolol due to normal EF and bradycardia seen on telemetry but continue ARB due to T1DM copy of her echo was placed on CD for her; she has f/u with cardiology in [place], Dr Ehsan Gustafson, later in June 2024 (10) Ingrown toenail of both feet: had b/l great toenails worked on by podiatry in [place] left great toenail completely removed portion of medial toenail on right great toe was removed both great toes were w/o signs of infection during the stay f/u with podiatry as scheduled (11) MDD (major depressive disorder), recurrent, in partial remission: continue all prior psychotropic meds only change was that of AM cardura which as been stopped (12) Bradycardia: seen only while sleeping during the stay sinus bradycardia, rates as low as upper 30s/40s no AV block no pauses sinus rates while awake - 60s and above suspect 2nd to severe MAEGAN pt's significant other reports severe snoring with audible apneas advised the following - * STOP metoprolol * needs outpatient sleep study deon Notes For Next Care Provider 1. outpatient f/u endocrinology for ?adrenal insufficiency 2. outpatient sleep study - high concern for severe MAEGAN Medication Changes From Visit NEW - * hydrocortisone 15mg AM, 5mg afternoon * nurted ODT prn migraine OR "attacks" of nausea/emesis/abd pain STOP - * metoprolol succinate * AM dose of cardura Admission HPI Per Admitting Provider Nicole Moncada is a 39-year-old female with PMH of gastroparesis, esophagitis, psychogenic nausea and vomiting, anxiety, PTSD, and Takotsubo cardiomyopathy. She presented on 06/07 for intractable nausea, vomiting, and abdominal pain x 4 days. Patient has had hospitalizations at [place] in the past for similar, often thought secondary to severe GERD leading to esophagitis and gastroparesis. Patient is currently scheduled to have a G POEM procedure for her gastroparesis at [facility] on 07/03. Patient has been trying to take Zofran at home for her nausea and vomiting over the past 4 days, but it has not been working. She denies any blood in her vomit, and reports it has been dark/liquidy. She has not been able to tolerate foods or liquids. She has not had any of her regular medicines today, as she is unable to keep it down. She last took her insulin yesterday evening on 06/06. Originally, the patient went to [place], but then decided to come here as her pain was alleviated. She rates her abdominal pain as an 8/10 at present after receiving morphine in the ED, and a 10/10 at worst. She reports it is a generalized abdominal pain all across her stomach, that has been constant. She denies any self-induced vomiting at home. No thoughts of self-harm, harming others, or suicidal ideations. Additionally, the patient reports that she had toe surgery on her left toe a couple days ago after she stubbed it and it turned black. Patient denies smoking, tobacco use, recent alcohol use. Patient says she is not allowed to take NSAIDs for her stomach. Patient is hypertensive at 191/120, tachycardic at 94, and tachypneic at 25 at time of admission. ED course: Dicyclomine 20 mg Magnesium sulfate 1 g IV Morphine 4 mg IV NSS 1000 mL IV x 2 Acetaminophen 1000 mg IV Famotidine 20 mg IV Protonix 40 mg IV Promethazine 25 mg p.o. Diphenhydramine 25 mg p.o. Droperidol 2.5 mg Phenergan 25 mg IV ROS: Patient endorses dizziness, lightheadedness, HANNON, abdominal pain (generalized), N/V, mild constipation, Patient denies fever, chills, night-sweats, chest pain, SOB, diarrhea, bright red blood in vomit, blood in the urine/stool, melena, saddle anesthesia, or numbness/tingling in the arms or legs. Discharge Exam gen - NAD, obese - looks well mouth - MMM neck - no JVD heart - RRR, s1 s2, no murmur lungs - CTA b/l abd - soft NT ND BS+; no HSM; no peritoneal signs ext - no edema, pulses 2+ b/l Discharge Plan Discharge Items Patient Disposition: Home - Self-Care Reason For Visit: INTRACTABLE VOMITING Discharge Diagnosis: 1. intractable vomiting - resolved; due to gastroparesis +/- cyclic vomiting syndrome/abdominal migraines +/- adrenal insufficiency? 2. gastroparesis 3. sinus bradycardia during sleep - heavy suspicion for sleep apnea; sleep study needed 4. migraine headaches 5. diabetes 6. question of adrenal insufficiency - see your harness racing handicapper as scheduled this month 7. history of Takotsubo's cardiomyopathy - resolved; echocardiogram this admission normal Activity: Resume your previous activity Non-emergency contact: Primary Care Provider Call non-emergency contact if: you have any medication questions, your symptoms worsen and you have a fever Follow-up/Referrals: Bekah Guillermo, [Primary Care Provider] - (see your family doctor this week ) Diet: Carb Count or DM1 Addtl Attending Provider Instructions: Ms Moncada, You were hospitalized due to severe nausea/vomiting/abdominal discomfort. Your symptoms gradually resolved with use of nausea medicine, pain meds, anti- reflux medicine, and supportive care. I do question if you could potentially have a condition called "cyclic vomiting syndrome" (see handout) that contributes to your severe episodes of nausea/vomiting/pain. In children this condition is called "abdominal migraine." These episodes sometimes respond to dedicated migraine medicine (see below). During the stay you had an episode of severely low blood pressure. This responded to IV fluids and steroids. Because of the low blood pressure we checked a random cortisol level - it returned at 2 which is low. Thus we performed an adrenal gland test called cosyntropin stimulation test to determine if you have adrenal insufficiency. Your test went as follows -- baseline cortisol 0.6 30 minute cortisol 17 60 minutes cortisol 23 Although you technically "passed" your test your baseline levels (2 and 0.6) are quite low. It is not fully certain if you have adrenal insufficiency but to be cautious we are placing you on hydrocortisone. This is a steroid. This will likely cause your blood sugars to be higher than usual. you will need to monitor your sugars very carefully. You will need to follow-up with your harness racing handicapper later this month as scheduled to determine if you need to remain on hydrocortisone long-term. An ACTH test has been sent and is pending at time of discharge. Finally, we noticed during your sleep that your heart rate drops. This is very suspicious for severe sleep apnea. You need a sleep study to determine if you have sleep apnea. Your echocardiogram showed normal strength and pumping ability! This is great news. Your Takotsubo's cardiomyopathy has resolved. Recommendations - 1. starting 06/11/24 take hydrocortisone as follows - * 15mg (5mg tab x 3) every morning * 5mg every afternoon * take with food 2. stop your metoprolol 3. LOWER your doxazosin to 2mg at bedtime only for now 4. for a migraine headache that is severe OR an episode of severe nausea/vomiting/abdominal pain you can take - * Nurtec ODT - 1 tablet under the tongue x 1, maximum 1 tablet in 24 hours * you can take nausea medicine WITH the Nurtec ODT 5. sleep study at your convenience Follow-up - * family doctor this week * harness racing handicapper on 06/19 as scheduled * GI in [place] later this month for G-POEM procedure as scheduled * greens laborer this month in [place] as scheduled (bring the CD with your echocardiogram to that appointment) Return to any hospital if - * you have fever over 100 degrees * you have severe nausea/vomiting/abd pain not responding to your medicines * you have an intractable migraine headache * any other concerns It was our pleasure to care for you! Pending Studies at Discharge: Yes Studies:: ACTH level (pituitary hormone that regulates cortisol) Stand-Alone Forms: My [facility], Smoking Cessation Medications and DC Order Prescriptions: New hydrocortisone 5 mg tablet 5 mg PO DIRECTED Qty: 60 0RF Rx Instructions: take 15mg (5mg x 3) every morning and 5mg every afternoon starting 06/11/24. Take with food. Continued insulin aspart U-100 100 unit/mL (3 mL) insulin pen See Rx Instructions .ROUTE .COMPLEX Rx Instructions: Inject 5 units w/ small carb meal, 8 units w/ medium carb meal and 12 units w/ large carb meal ondansetron 4 mg tablet,disintegrating 4 mg PO Q8 PRN (Reason: Nausea And Vomiting) Invega Sustenna 234 mg/1.5 mL syringe 234 mg IM MONTHLY Rx Instructions: DUE APRIL 29 losartan 25 mg tablet 25 mg PO HS cyanocobalamin (vitamin B-12) 500 mcg Tablet 1,000 mcg PO QAM Qty: 0 0RF Rx Instructions: Unable to verify OTC meds at this date/time. sennosides [Senokot] 8.6 mg Tablet 17.2 mg PO QAM PRN (Reason: constipation) Qty: 0 0RF Rx Instructions: Unable to OTC meds at this date/time. polyethylene glycol 3350 [Miralax] 17 gram Powder In Packet 17 g PO DAILY Qty: 0 0RF Rx Instructions: Unable to verify OTC meds at this date/time. sucralfate 100 mg/mL suspension 1,000 mg PO ACHS Qty: 473 0RF mirtazapine 30 mg tablet 30 mg PO HS esomeprazole magnesium 40 mg capsule,delayed release(DR/EC) 40 mg PO BID Linzess 145 mcg capsule 145 mcg PO QAM promethazine 12.5 mg tablet 12.5 mg PO Q6H PRN (Reason: nausea and vomiting) Qty: 20 0RF Trintellix 20 mg tablet 20 mg PO DAILY diclofenac sodium 1 % gel 1 g TOPICAL UD Rx Instructions: 1 gm to right leg and left arm twice a day. Unable to verify OTC meds at this date/time. clonazepam 0.5 mg tablet,disintegrating 0.5 mg PO TID MDD 1.5 mg PRN (Reason: Anxiety) Changed doxazosin 2 mg tablet 2 mg PO HS Qty: 0 0RF Rx Instructions: Take 2mg at bedtime only 2qam - 1.5tab at hs Discontinued metoprolol succinate 25 mg tablet extended release 24 hr 25 mg PO DAILY No Action aspirin 81 mg tablet,delayed release (DR/EC) 0 mg PO DAILY Rx Instructions: Unable to verify OTC meds at this date/time. Pharmacy has listed as follows, pt may have gotten OTC: 81mg by mouth once daily metoprolol succinate 25 mg tablet extended release 24 hr 25 mg PO DAILY Nurtec ODT 75 mg tablet,disintegrating 75 mg PO DAILY PRN (Reason: migraine headache) Rx Instructions: maximum 1 tablet in 24 hours. Discharge Orders: Discharge Order (Routine); Ordered 06/10/24 Ordered By: Henrry Lim/Other Patient Handouts: Secondary Adrenal Insufficiency, Managing Type 1 Diabetes, What Are Snoring and Sleep Apnea?, Cyclic Vomiting Admission Data Admit Date/Time: 06/08/24 10:06 Attending Provider: Henrry Duque Admit Provider: Henrry Duque Primary Care Provider: Bekah Guillermo Other Providers: Aníbal Laboy; Baldo Syed Other Interventions: Discharge Summary Assessment (RN) Last Done: 06/10/24 15:11 Hospital Stay Data Procedures Performed Echocardiogram - Diagnostic Imagining Performed KUB X-Ray 06/07/24 00:19 EXAM: XR KUB/Abdomen 1 view CLINICAL HISTORY: VOMITING ABD PAIN JMF TECHNIQUE: X-ray images of the abdomen were obtained in the supine position. COMPARISON: previous CT dated 04/01/2024. FINDINGS: Gas Pattern: Fecal loading and ascending colon. The gas pattern within the abdomen is normal. No evidence of bowel obstruction or distention. Soft Tissues: Surgical clips are seen in the right hypochondrium. Soft tissues of the abdomen appear normal without evidence of masses or calcifications. The liver, spleen, and kidneys are of normal size and position. Subtle irregularity is seen at the superior endplate of the L3 vertebra. IMPRESSION: No acute abnormalities were identified. Fecal loading and ascending colon. Electronically signed by Morgan Pugh 06-07-2024 01:38 AM Pending Results Patient Have Any Pending Studies at Discharge: Yes Discharge Instructions Given to Patient (Per Discharging Provider) Ms Moncada, Gurpreet were hospitalized due to severe nausea/vomiting/abdominal discomfort. Your symptoms gradually resolved with use of nausea medicine, pain meds, anti- reflux medicine, and supportive care. I do question if you could potentially have a condition called "cyclic vomiting syndrome" (see handout) that contributes to your severe episodes of nausea/vomiting/pain. In children this condition is called "abdominal migraine." These episodes sometimes respond to dedicated migraine medicine (see below). During the stay you had an episode of severely low blood pressure. This responded to IV fluids and steroids. Because of the low blood pressure we checked a random cortisol level - it returned at 2 which is low. Thus we performed an adrenal gland test called cosyntropin stimulation test to determine if you have adrenal insufficiency. Your test went as follows -- baseline cortisol 0.6 30 minute cortisol 17 60 minutes cortisol 23 Although you technically "passed" your test your baseline levels (2 and 0.6) are quite low. It is not fully certain if you have adrenal insufficiency but to be cautious we are placing you on hydrocortisone. This is a steroid. This will likely cause your blood sugars to be higher than usual. you will need to monitor your sugars very carefully. You will need to follow-up with your harness racing handicapper later this month as scheduled to determine if you need to remain on hydrocortisone long-term. An ACTH test has been sent and is pending at time of discharge. Finally, we noticed during your sleep that your heart rate drops. This is very suspicious for severe sleep apnea. You need a sleep study to determine if you have sleep apnea. Your echocardiogram showed normal strength and pumping ability! This is great news. Your Takotsubo's cardiomyopathy has resolved. Recommendations - 1. starting 06/11/24 take hydrocortisone as follows - * 15mg (5mg tab x 3) every morning * 5mg every afternoon * take with food 2. stop your metoprolol 3. LOWER your doxazosin to 2mg at bedtime only for now 4. for a migraine headache that is severe OR an episode of severe nausea/vomiting/abdominal pain you can take - * Nurtec ODT - 1 tablet under the tongue x 1, maximum 1 tablet in 24 hours * you can take nausea medicine WITH the Nurtec ODT 5. sleep study at your convenience Follow-up - * family doctor this week * harness racing handicapper on 06/19 as scheduled * GI in [place] later this month for G-POEM procedure as scheduled * greens laborer this month in [place] as scheduled (bring the CD with your echocardiogram to that appointment) Return to any hospital if - * you have fever over 100 degrees * you have severe nausea/vomiting/abd pain not responding to your medicines * you have an intractable migraine headache * any other concerns It was our pleasure to care for you! Total Time Total Time Spent Total Time Spent (In Minutes): 60 Coding Level of Care Code 30085 INP/OBS DISCH >30 MIN Diagnoses Intractable nausea and vomiting R11.2 Gastroparesis K31.84 Esophagitis K20.90 Abdominal pain R10.9 Abnormal cortisol level R79.89 Hypotension I95.9 Diabetes E11.9 Iron deficiency E61.1 Takotsubo cardiomyopathy I51.81 Ingrown toenail of both feet L60.0 MDD (major depressive disorder), recurrent, in partial remission F33.41 Bradycardia R00.1
== END 2024-06-10 16:31 | disposition home or self-care (01) | DRG 392 ==
LOC: 2N 23:58 → ED 23:58 → 2N 06-07 09:19

== ENCOUNTER 2024-06-13 05:18 | Observation (INO) ==
[2024-06-13 06:12] LABS: Basophils # (auto) 0.03 K/uL (0.00-0.20); Basophils % (auto) 0.3 %; Eosinophils # (auto) 0.03 K/uL (0.00-0.50); Eosinophils % (auto) 0.3 %; Hematocrit (blood only) 35.4 % (37.0-47.0); Hemoglobin 11.9 g/dl (12.0-16.0); Immature Granulocytes # (auto) 0.09 K/uL (0.01-0.20); Immature Granulocytes % (auto) 0.9 %; Lymphocytes % (auto) 11.5 %; Mean Corpuscular Hemoglobin 27.4 pg (25.0-34.0); Mean Corpuscular Hgb Conc 33.6 g/dL (32.0-36.0); Mean Corpuscular Volume 81.4 fL (80.0-100.0); Mean Platelet Volume 12.1 fL (9.4-12.4); Monocytes # (auto) 0.57 K/uL (0.11-0.59); Monocytes % (auto) 5.9 %; Neutrophils # (auto) 7.76 K/uL (1.40-6.50); Neutrophils % (auto) 81.1 %; Platelet Count 159 K/uL (130-400); RDW Coefficient of Variation 14.8 % (11.5-14.5); Red Blood Count 4.35 M/uL (4.20-5.40); White Blood Count 9.58 K/ul (4.8-10.8)
[2024-06-13 06:21] LABS: Albumin Level 4.1 gm/dl (3.4-5.0); Bilirubin,Total 0.4 mg/dl (0.2-1.0); Potassium 3.8 mmol/L (3.5-5.1)
[2024-06-13 06:24] LABS: Pregnancy Test, Serum Negative (Negative)
[2024-06-13 06:27] LABS: Albumin Globulin Ratio 1.4 (0.9-2); BUN Creatinine Ratio 25.3 (10-20); Creatinine Clr Calc Pharmacy 109.5 ml/min; Total Protein 7.1 gm/dl (6.0-8.3)
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
[2024-06-13] MEDS: diphenhydrAMINE 50 MG/ML VIAL IV STA (07:41)
[2024-06-13] MEDS: KETOROLAC TROMETHAMINE 15 MG/ML VIAL IV ONE (07:43)
[2024-06-13] MEDS: PROCHLORPERAZINE 2 ML IV ONE (07:44)
[2024-06-13] MEDS: SODIUM CHLORIDE 0.9% 1,000 ML IV ONE (07:46)
[2024-06-13] MEDS: PROMETHAZINE 25 MG/51 ML BAG IV STA (07:46)
[2024-06-13] MEDS: ACETAMINOPHEN 1,000 MG/100 ML VIAL IV STA (09:58)
[2024-06-13] MEDS: DROPERIDOL 5 MG/2 ML VIAL IV STA (09:59)
[2024-06-13] MEDS: LORazepam 2 MG/1 ML VIAL IV STA (09:59)
--- NOTE | 2024-06-13 10:45 | XRay Report ---
KUB HISTORY: Abd pain, N/V COMPARISON STUDY: 06/07/2024 FINDINGS: There is moderate retained stool. No bowel obstruction seen. Stable right upper quadrant meek rgical clips. IMPRESSION: No acute findings. ACT 112: Negative or not required by law. The above report was generated using voice recognition software. It may contain grammatical, syntax o r spelling errors. Electronically signed by: Fazal Tinoco M.D. 06/13/2024 10:43 AM
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
[2024-06-13] MEDS: DICYCLOMINE HCL 10 MG/ML 2 ML AMP/VIAL IM ONE (13:08)
[2024-06-13] MEDS ORDERED: GLUCOSE 10 TAB/TUBE PO PRN (13:47)
[2024-06-13] MEDS ORDERED: PROMETHAZINE 6.25 MG/50.25 ML BAG IV PRN (13:47)
[2024-06-13] MEDS ORDERED: ACETAMINOPHEN 500 MG TAB PO PRN (13:47)
[2024-06-13] MEDS ORDERED: GLUCOSE 40% GEL 15 GM TUBE PO PRN (13:47)
[2024-06-13] MEDS ORDERED: ONDANSETRON INJ 2 MG/ML 2 ML VIAL IV PRN (13:47)
[2024-06-13] MEDS ORDERED: GLUCAGON FOR INJ 1 MG VIAL SQ PRN (13:47)
[2024-06-13] MEDS ORDERED: DICYCLOMINE HCL 10 MG CAP PO PRN (13:47)
[2024-06-13] MEDS ORDERED: CARBOHYDRATES FOR HYPOGLYCEMIA PO PRN (13:47)
[2024-06-13] MEDS ORDERED: DEXTROSE 50% 50 ML SYRINGE IV PRN (13:47)
[2024-06-13] MEDS: FAMOTIDINE 20MG IV PUSH 20 MG/5 ML SYR IV SCH (14:32)
[2024-06-13] MEDS ORDERED: ACETAMINOPHEN 1,000 MG/100 ML VIAL IV PRN (15:09)
[2024-06-13] MEDS ORDERED: PHARMACY GLYCEMIC MGMT CONSULT PRN (15:27)
[2024-06-13] MEDS: KETOROLAC TROMETHAMINE 15 MG/ML VIAL IV PRN (16:03)
[2024-06-13] MEDS: INSULIN ASPART PER UNIT CHARGE SC SCH (17:44)
[2024-06-13] MEDS: SUCRALFATE 1 GM/10 ML UDC PO SCH (18:25)
[2024-06-13] MEDS: DOXAZosin MESYLATE TAB 2 MG TAB PO SCH (20:10)
[2024-06-13] MEDS: LOSARTAN POTASSIUM 25 MG TAB PO SCH (20:10)
[2024-06-13] MEDS: PANTOprazole 40 MG/10 ML SYR IV SCH (20:11)
[2024-06-13] MEDS: MIRTAZAPINE TAB 15 MG TAB PO SCH (20:11)
[2024-06-13] MEDS: LANTUS PER UNIT CHARGE SQ SCH (20:24)
[2024-06-13] MEDS: clonazePAM 0.5 MG TAB PO PRN (20:27)
[2024-06-13] MEDS ORDERED: PANTOprazole 40 MG TAB PO SCH (21:00)
[2024-06-14] MEDS: PANTOprazole 40 MG TAB PO STA (01:49)
[2024-06-14] MEDS: FAMOTIDINE 20 MG TAB PO STA (01:49)
[2024-06-14] MEDS ORDERED: PROCHLORPERAZINE 5 MG in SYRINGE 4 ML IV PRN (08:05)
[2024-06-14] MEDS: LANTUS PER UNIT CHARGE SQ SCH ×2 (08:51→21:56)
[2024-06-14] MEDS: ASPIRIN 81 MG ECTAB PO SCH (08:53)
[2024-06-14] MEDS: LINACLOTIDE 145 MCG CAPSULE PO SCH (08:53)
[2024-06-14] MEDS ORDERED: HYDROCORTISONE 10 MG TAB PO SCH ×2 (09:00→14:30)
[2024-06-14 09:24] LABS: Appearance Urine Cloudy (Clear); Bacteria Urine Automated 1+ (None Seen); Bilirubin Urine Negative (Negative); Blood Urine 2+ (Negative); Cast Urine Automated 0-2 /lpf (0-2); Color Urine Yellow; Epithelial Cell Urine Auto 0-2 /hpf (0-2); Glucose Urine UA 3+ (Negative); Ketones Urine 1+ (Negative); Leukocyte Esterase Urine Negative (Negative); Nitrite Urine Negative (Negative); Protein Urine Trace (Negative); RBC Urine Automated 0-2 /hpf (0-2); Specific Gravity Urine 1.025 (1.000-1.030); Urobilinogen Urine Negative (Negative); WBC Urine Automated 0-5 /hpf (0-5)
[2024-06-14 10:19] LABS: Amphetamines+Metham, Urine Neg (Neg); Barbiturates, Urine Neg (Neg); Benzodiazepine, Urine Neg (Neg); Cocaine, Urine Neg (Neg); Fentanyl, Urine Neg (Neg); MDMA (Ecstacy), Urine Neg (Neg); Marijuana, Urine Neg (Neg); Methadone, Urine Neg (Neg); Opiate, Urine Neg (Neg); Phencyclidine, Urine Neg (Neg)
--- NOTE | 2024-06-14 10:43 | Ultrasound Report ---
US pelvic complete, US transvaginal HISTORY: 39 years-old Female abdominal pain, ? endometrosis acute generalized pelvic pain COMPARISON: CT abdomen and pelvis 04/01/2024 TECHNIQUE: Multiple real-time sonographic images of the pelvic structures were obtained transabdomina lly and transvaginally assessing grayscale appearance, color and spectral flow FINDINGS: TRANSABDOMINAL: Pelvic structures are not well seen secondary to patient body habitus and obscuring b owel gas. TRANSVAGINAL: Nabothian cysts of the cervix. Anteflexed uterus measures 6.9 x 3.5 x 4.3 cm. Endometri um is normal measuring 2 mm in thickness. scar noted. No myometrial mass lesions identified . Right ovary measures 2.7 x 1.9 x 1.9 cm. Left ovary measures 2.7 x 1.7 x 1.9 cm. Arterial inflow and venous outflow documented bilaterally. Bilateral ovarian follicles. Subcentimeter echogenic focus in the right ovary is nonspecific, likely benign. Thin-walled benign-appearing cystic focus within the r ight adnexum measures up to 1.9 cm suggestive of an exophytic ovarian cyst versus paraovarian cyst. S imilar appearing adjacent 1.5 cm benign-appearing cystic structure. No definite foci to suggest endometrial implants. Within the left adnexal distribution there is a tub ular structure without color flow measuring several centimeters in length and 4 m in transverse dimen yousuf without color flow containing internal complex debris. IMPRESSION: 1. Unremarkable sonographic appearance of the uterus and endometrium with scar noted. 2. No ovarian torsion or suspicious adnexal lesions identified. 3. Right-sided exophytic ovarian cysts versus paraovarian cysts measure up to 1.9 cm. 4. Tubular mixed echogenicity structure within the left adnexal tissues suggestive of a thrombosed pe lvic vein. Correlation with CT of the pelvis with IV contrast recommended. ACT 112: Negative or not required by law. The above report was generated using voice recognition software. It may contain grammatical, syntax o r spelling errors. Electronically signed by: Rodger Garcia M.D. 06/14/2024 10:41 AM
--- NOTE | 2024-06-14 11:36 | Pharmacy Report ---
Pharmacy Glycemic Short Note 2 - Date of Service June 14, 2024 - Glycemic Short BSG Results (Last 24 hours): 06/13/24 06/13/24 06/14/24 16:39 20:16 07:30 POC Glucose 213 H 158 H 186 H OUTPATIENT ANTIDIABETIC REGIMEN: * Novolog 5 units SC w/ small meal, 8 units SC w/ medium meal, and 12 units SC w/ large meal * Lantus 20 units SC qAM, 19 units SC qPM HbA1c: 6.5% (06/07/24) ASSESSMENT: * FS is a 39 year old female with T1DM and gastroparesis presenting with N&V and abdominal pain * Pharmacy consulted for glycemic management, full liquid/T1DM diet ordered * Prior inpatient glycemic data suggests variable insulin needs, which is likely related to dietary intake PLAN FOR INPATIENT GLYCEMIC CONTROL: * Hold outpatient oral diabetes medications * Basal insulin * Lantus 15 units SQ x 1 this AM * Lantus 10-15 units SC HS (see EHR for details) * Bolus insulin * NovoLog per scale ACHS or Q6hrs while NPO * Goal Range: Low 110 mg/dL - High 140 mg/dL * Correction Factor: 30 mg/dL/unit * Nutritional / Prandial insulin per carb ratio of 1 unit per 8 grams CHO consumed
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
[2024-06-14] MEDS ORDERED: PROMETHAZINE HCL 25 MG TAB PO PRN (14:43)
[2024-06-14] MEDS: SUMAtriptan succinate 6 MG/0.5 ML VIAL SQ ONE (15:36)
--- NOTE | 2024-06-14 18:28 | Hospitalist Progress Note ---
Date of Service June 14, 2024 Assessment & Plan (1) Intractable nausea and vomiting: (2) Abdominal pain: (3) Type 1 diabetes: (4) MDD (major depressive disorder), recurrent, in partial remission: Plan Nicole is a 39-year-old female with longstanding diabetes, gastroparesis, esophagitis, psychogenic nausea and vomiting, anxiety, and PTSD. She presents with intractable nausea, vomiting, and abdominal pain since recent discharge on 06/10. #Nausea and Vomiting Multiple admissions for such - suspect multifactorial GERD/Esophagitis/Gastroparesis Received 1L NSS in ED Continue BID PPI, Carafate QID, Pepcid BID has lost IV access, very difficult PIV access - ordered oral Zofran and oral Phenergan as needed nausea and vomiting, if refractory we can give her Phenergan suppository #Abdominal pain LFTs and lipase WNL. KUB with moderate retained stool. Etiology unclear - prior considerations for abdominal migraines or from cyclic vomiting Possible endometriosis - obtained pelvic US - no evidence of endometrial implants she does have ovarian cysts Avoid opiates - Toradol, Tylenol prn, Bentyl prn, heating pad. Will continue linzess given stool on KUB - if unable to tolerate PO consider suppository porphyrin's were sent on admission - pending # abnormal pelvic ultrasoundthere is a tubular mixed echogenicity structure in left adnexa which could be thrombosed pelvic vein - try to get peripheral IV access and if so we can get CT venogram of pelvis to evaluate this. She does not really have pelvic pain, she is frequently hospitalized which would be a risk factor for venous thrombosis she does not have any signs or symptoms of pulmonary embolism # headacheseems like migraine - was given prescription for Nurtec on last discharge but requires prior authorization by insurance - she has not tried triptan, ordered sumatriptan hand 6 mg subcu x 1 today. very unlikely to tolerate oral triptan because of chronic nausea and emesis - if that is ineffective for inpatient migraine we can use Depakote 500 mg IV x 1, I discussed with this with her #DMT1 Continue losartan Lantus 15units BID, SSI CF 30, CR 10 BSH ACHS #Adrenal insufficiency Concern during last admission and stated on hydrocortisone I reviewed the cosyntropin stim test done last admission and it was normal, despite baseline low a.m. 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 Drinking fluids ok Physical Exam 2 Physical Exam: PHYSICAL EXAMINATION Last 24h vital signs reviewed, see documentation in flowsheet General: resting in bed HEENT: Normocephalic, atraumatic, pupils round and equal, sclerae anicteric, no conjunctival injection, moist mucus membranes Lungs: Normal respiratory effort. Clear to auscultation bilaterally. No RRW Heart: Regular rate and rhythm, no murmurs. No JVD Abdomen: Soft, nontender, nondistended. Bowel sounds present. Extremities: Warm, dry, well-perfused. No extremity edema. Neuro: Alert and oriented x 4, face symmetric, moves 4 extremities well Psych: anxious affect and normal behavior Results & Data Results & Data Vital Signs (Past 12 Hours) Vital Signs Temp Pulse Resp BP Pulse Ox O2 Del Method 06/14/24 15:49 97.9 F 87 20 139/72 95 Room Air 06/14/24 06:35 97.7 F 70 18 101/64 92 Room Air Laboratory Results 06/13/24 06:01 06/13/24 06:01 PG Care Time/CCT Total # of Minutes Spent Total Time Spent with Patient: Total time spent is greater than 50% in coordination of care (as documented) at patient's floor/unit and/or counseling patient: Coding Level of Care Code 21531 SUB INP/OBS CARE 3/50MIN Diagnoses Intractable nausea and vomiting R11.2 Abdominal pain R10.9 Type 1 diabetes E10.9 Diabetes mellitus complication status: without complication MDD (major depressive disorder), recurrent, in partial remission F33.41 (3) Type 1 diabetes Diabetes mellitus complication status: without complication Qualified Code(s): E10.9 - Type 1 diabetes mellitus without complications
[2024-06-14] MEDS: ENOXAPARIN INJ 40 MG/0.4 ML SYR SQ SCH (21:49)
[2024-06-14] MEDS: FAMOTIDINE 20 MG TAB PO SCH (21:58)
[2024-06-14] MEDS: PANTOprazole 40 MG TAB PO SCH (21:58)
[2024-06-15] MEDS ORDERED: NEOMYCIN/POLYMYX/BACITR OINT 15 GM TUBE EXT PRN (00:41)
[2024-06-15] MEDS: ONDANSETRON 8MG OD TAB PO PRN (08:44)
--- NOTE | 2024-06-15 13:45 | Pharmacy Report ---
Pharmacy Glycemic Short Note 2 - Date of Service June 15, 2024 - Glycemic Short BSG Results (Last 24 hours): 06/14/24 06/14/24 06/15/24 16:20 20:34 07:22 POC Glucose 92 119 H 134 H 06/15/24 11:25 POC Glucose 161 H OUTPATIENT ANTIDIABETIC REGIMEN: * Novolog 5 units SC w/ small meal, 8 units SC w/ medium meal, and 12 units SC w/ large meal * Lantus 20 units SC qAM, 19 units SC qPM HbA1c: 6.5% (06/07/24) ASSESSMENT: 06/15/24: * Blood sugars reasonably well-controlled yesterday, ranging 92-186 mg/dL * Received 48 units of insulin (25 units of basal and 23 units of pra ndial/correctional bolus) * Fasting blood sugar of 134 mg/dL this morning * Do not anticipate any changes to regimen today 06/14/24: * FS is a 39 year old female with T1DM and gastroparesis presenting with N&V and abdominal pain * Pharmacy consulted for glycemic management, full liquid/T1DM diet ordered * Prior inpatient glycemic data suggests variable insulin needs, which is likely related to dietary intake PLAN FOR INPATIENT GLYCEMIC CONTROL: * Hold outpatient oral diabetes medications * Basal insulin * Lantus 10-15 units SC BID (below/above 120 mg/dL) * Bolus insulin * NovoLog per scale ACHS or Q6hrs while NPO * Goal Range: Low 110 mg/dL - High 140 mg/dL * Correction Factor: 30 mg/dL/unit * Nutritional / Prandial insulin per carb ratio of 1 unit per 8 grams CHO consumed
[2024-06-15] MEDS: VALPROATE SOD 500 MG in DEXTROSE 5% 50 ML IV ONE (17:51)
--- NOTE | 2024-06-15 18:53 | Hospitalist Progress Note ---
Date of Service June 15, 2024 Assessment & Plan (1) Intractable nausea and vomiting: (2) Abdominal pain: (3) Type 1 diabetes: (4) MDD (major depressive disorder), recurrent, in partial remission: Plan Nicole is a 39-year-old female with longstanding diabetes, gastroparesis, esophagitis, psychogenic nausea and vomiting, anxiety, and PTSD. She presents with intractable nausea, vomiting, and abdominal pain since recent discharge on 06/10. #Nausea and Vomiting Multiple admissions for such - suspect multifactorial GERD/Esophagitis/Gastroparesis Continue BID PPI, Carafate QID, Pepcid BID very difficult PIV access - ordered oral Zofran and oral Phenergan as needed nausea and vomiting, if refractory we can give her Phenergan suppository #Abdominal pain - probably from gastroparesis LFTs and lipase WNL. KUB with moderate retained stool. Etiology unclear - prior considerations for abdominal migraines or from cyclic vomiting Considered endometriosis - obtained pelvic US - no evidence of endometrial implants she does have ovarian cysts Avoid opiates - Toradol, Tylenol prn, Bentyl prn, heating pad. Will continue linzess given stool on KUB - if unable to tolerate PO consider suppository porphyrin's were sent on admission - pending # abnormal pelvic ultrasoundthere is a tubular mixed echogenicity structure in left adnexa which could be thrombosed pelvic vein she's had what sounds like hidradenitis suppurativa with recurring drainage in L groin, had surgical excision at one point but didn't solve the problem. Perhaps that is related. she is frequently hospitalized which would be a risk factor for venous thrombosis she does not have any signs or symptoms of pulmonary embolism -PIV access was obtained today and ordered CT venogram pelvis/L thigh # headacheseems like migraine - was given prescription for Nurtec on last discharge but requires prior authorization by insurance - some partial response to 6 mg subcu x 1 06/14. very unlikely to tolerate oral triptan because of chronic nausea and emesis - still with headache today and we have PIV - Depakote 500 mg IV x 1 #DMT1 Continue losartan Lantus 15units BID, SSI CF 30, CR 10 BSH ACHS BG at goal today #Adrenal insufficiency Concern during last admission and stated on hydrocortisone I reviewed the cosyntropin stim test done last admission and it was normal, despite baseline low a.m. cortisol ACTH testing still pending from last admission stopped hydrocortisone Keep outpatient endocrinology appointment #Ovarial cysts - [facility] follow up. I discussed these before. Mental health - continue trintellix (not available unless she brings it in), Remeron, prn clonazepam prophylaxis dose enoxaparin Admission and Anticipated Discharge Date Admission Date: June 13, 2024 Subjective abdominal symptoms improved, nausea/abdominal pain better today and tolerating her FLD, wants some crackers discussed the LLQ pelvic finding - she's had what sounds like hidradenitis suppurativa with recurring drainage in L groin, had surgical excision at one point but didn't solve the problem Physical Exam 2 Physical Exam: PHYSICAL EXAMINATION Last 24h vital signs reviewed, see documentation in flowsheet General: resting in bed HEENT: Normocephalic, atraumatic, pupils round and equal, sclerae anicteric, no conjunctival injection, moist mucus membranes Lungs: Normal respiratory effort. Clear to auscultation bilaterally. No RRW Heart: Regular rate and rhythm, no murmurs. No JVD Abdomen: Soft, nontender, nondistended. Bowel sounds present. Extremities: Warm, dry, well-perfused. No extremity edema. L groin with small sinus tract in groin fold that is currently healed over without drainage or inflammation Neuro: Alert and oriented x 4, face symmetric, moves 4 extremities well Psych: anxious affect and normal behavior Results & Data Results & Data Vital Signs (Past 12 Hours) Vital Signs Temp Pulse Resp BP Pulse Ox O2 Del Method 06/15/24 16:21 98.2 F 59 L 15 101/69 96 Room Air 06/15/24 07:11 97.9 F 52 L 16 90/56 L 93 Room Air Laboratory Results 06/13/24 06:01 06/13/24 06:01 PG Care Time/CCT Total # of Minutes Spent Total Time Spent with Patient: Total time spent is greater than 50% in coordination of care (as documented) at patient's floor/unit and/or counseling patient: Coding Level of Care Code 11549 SUB INP/OBS CARE 2/35MIN Diagnoses Intractable nausea and vomiting R11.2 Abdominal pain R10.9 Type 1 diabetes E10.9 Diabetes mellitus complication status: without complication MDD (major depressive disorder), recurrent, in partial remission F33.41 (3) Type 1 diabetes Diabetes mellitus complication status: without complication Qualified Code(s): E10.9 - Type 1 diabetes mellitus without complications
[2024-06-15] MEDS: OPTIRAY 320 125ml IV ONE ×2 (22:01→22:50)
--- NOTE | 2024-06-16 01:16 | CT Scan Report ---
Exam(s): CT VENOGRAPHY IV Amt: 120 ml optiray 320 EXAM: CT venography pelvis and bilateral proximal lower extremities With Intravenous Contrast CLINICAL HISTORY: Possible left pelvic thrombosed adnexal vein on previous ultrasound. TECHNIQUE: Axial computed tomographic angiography images of the pelvis and lower extremities to the knee joints was performed following intravenous contrast and delayed venous phase. CTDI is 15 mGy and DLP is 463 mGy-cm. Automated exposure control was utilized for the study. A dose lowering technique was utilized adhering to the principles of ALARA. MIP reconstructed images were created and reviewed. CONTRAST: Patient received 120 ml optiray 320 of IV contrast COMPARISON: Report from the pelvic ultrasound performed the previous day FINDINGS: Veins: There is a subtle filling defect noted in the left ovarian vein, anterior to the psoas muscle. No dilation of the vein or surrounding fat stranding noted. The defect extends over a length of approximately 5 cm from the superior margin of the adnexa (series 300; image 88). Above the level of the thrombosis, the vein is stenotic appearing. The common femoral, internal and external iliac veins are patent. The common iliac veins are patent. The IVC is not included but is presumed patent. Pelvis: The uterus and adnexa are unremarkable. There is a cystic structure which appears to be distinctly separate from the left adnexa in the left lateral pelvis measuring 3 x 1.6 x 1.9 cm. There is excreted contrast in the bladder without bladder wall thickening or bladder stones. Contrast in the distal ureters. Soft tissues: Mild cutaneous edema noted overlying the pelvis and involving the left lateral thigh. No loculated fluid collection. Bones: Negative. No acute osseous abnormality or abnormal alignment. IMPRESSION: 1. There is a subtle filling defect noted in the left ovarian vein, anterior to the psoas muscle. 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 Above the level of the thrombosis, the vein is stenotic appearing, suggesting potential proximal occlusion or stenosis. No dilation of the vein or surrounding fat stranding noted. The defect extends over a length of approximately 5 cm from the superior margin of the adnexa (series 300; image 88). There is no evidence for left adnexal enlargement to suggest significant edema. 2. The uterus and adnexa are unremarkable. There is a cystic structure which appears to be distinctly separate from the left adnexa in the left lateral pelvis measuring 3 x 1.6 x 1.9 cm. This is a presumed paraovarian cyst noted on the previous ultrasound exam. 3. The common femoral, internal and external iliac veins are patent. The common iliac veins are patent. The IVC is not included but is presumed patent. Electronically signed by: Rafa Mendoza MD 06/16/24 01:15 AM
[2024-06-16 07:59] LABS: Calcium 8.8 mg/dl (8.6-10.3); Potassium 4.2 mmol/L (3.5-5.1)
--- NOTE | 2024-06-16 09:52 | Hospitalist Progress Note ---
Date of Service June 16, 2024 Assessment & Plan (1) Intractable nausea and vomiting: (2) Abdominal pain: (3) Type 1 diabetes: (4) MDD (major depressive disorder), recurrent, in partial remission: (5) Thrombosis of ovarian vein: Plan Nicole is a 39-year-old female with longstanding diabetes, gastroparesis, esophagitis, psychogenic nausea and vomiting, anxiety, and PTSD. She presents with intractable nausea, vomiting, and abdominal pain since recent discharge on 06/10. Symptoms this admission have been stereotypical for her, but this fall/winter seems to have spent most of the time in a hospital/ER. Planning G- POEM procedure for her gastroparesis with GI later this month. During admission workup obtained pelvic ultrasound and TVUS to evaluate for possible endometriosis. No endometrial implants seen, however, pelvic vein thrombosis was identified. CT venogram obtained which shows left ovarian vein thrombosis. She also has history of a recurrently draining site in left inguinal fold next to her vulva. It intermittently drains foul smelling fluid. She had surgery on this area in the past to address it, but did not fix the problem. CT venogram shows a 3 x 1.6 x 1.9 cystic structure in left pelvis that is distinct from the adnexa. She does have past history of surgery for ovarian cysts as well. # left ovarian vein thrombosis (vein proximal to this appears stenotic), recurrently draining sinus tract in left inguinal area (not currently draining), left pelvis cystic structure Left groin/pelvis is somewhat tender, though entire abdomen tends to be painful - consulted [facility] - discussed with Dr. Abreu - does not appear that the ovarian vein thrombosis is related to her pelvic cysts, which are likely benign, question of thrombophilia, family history of Factor V Leiden - will obtain blood cultures, however vein is not dilated and no surrounding stranding or edema - if septic venous thrombosis, appears chronic - consider 2-6 weeks of anticoagulation - problematic because she vomits frequently may not tolerate DOAC, enoxaparin caused vomiting in the past (she was on this for superficial phlebitis in UE and LE from IV sites) - ordered hypercoagulability panel including Factor V Leiden - lets see if she can tolerate rivaroxaban - consult with hematology - obtained US of left inguinal region and there is no drainable fluid collection, edema/irregular area 2.0x0.4x3.9 cm could be postop changes or early phlegmon - ordered urine NAAT for GC/chlamydia #Nausea and Vomiting - acute gastroparesis flare Multiple admissions for such - suspect multifactorial GERD/Esophagitis/Gastroparesis Continue BID PPI, Carafate QID, Pepcid BID very difficult PIV access, currently has PIV - oral Zofran and oral Phenergan as needed nausea and vomiting, if refractory we can give her Phenergan suppository #Abdominal pain - probably from gastroparesis LFTs and lipase WNL. KUB with moderate retained stool. Etiology unclear - prior considerations for abdominal migraines or from cyclic vomiting Considered endometriosis - obtained pelvic US - no evidence of endometrial implants she does have ovarian cysts and other findings discussed above Avoid opiates - Toradol, Tylenol prn, Bentyl prn, heating pad. Will continue linzess given stool on KUB - if unable to tolerate PO consider suppository porphyrins were sent on admission - pending - though many other explanations for pain besides porphyria # headacheseems like migraine - was given prescription for Nurtec on last discharge but requires prior authorization by insurance - some partial response to 6 mg subcu x 1 2. very unlikely to tolerate oral triptan because of chronic nausea and emesis - still with headache 06/15 - Depakote 500 mg IV x 1 - still with headache 06/16 - had some but not complete response to migraine treatment - trial decongestants for possible sinusitis #DMT1 Continue losartan Lantus 15units BID, SSI CF 30, CR 10 BSH ACHS BG at goal today #Adrenal insufficiency Concern during last admission and stated on hydrocortisone I reviewed the cosyntropin stim test done last admission and it was normal, despite baseline low a.m. cortisol ACTH testing still pending from last admission stopped hydrocortisone Keep outpatient endocrinology appointment #Ovarian cysts - appear benign. see above. Mental health - continue trintellix (not available unless she brings it in), Remeron, prn clonazepam prophylaxis dose enoxaparin Admission and Anticipated Discharge Date Admission Date: June 15, 2024 Subjective Nausea and generalized abdominal pain are improved today, tolerating her full liquid diet Does still have bifrontal headache. Has some rhinorrhea but nothing comes out when she blows her nose, denies recent URI States LLQ pain and intermittent drainage of foul-smelling pus from L inguinal tract for at least a year. Had day surgery by a general surgeon with [facility] apx December 2023 but did not help the problem. It last drained 2 weeks ago. She has tried oral antibiotics and topical clinda but didn't help. Never got the fluid cultured. Dyspareunia with pain in lower abdomen for at least a year. Not having fevers/chills/sweats, no vaginal discharge. Physical Exam 2 Physical Exam: PHYSICAL EXAMINATION Last 24h vital signs reviewed, see documentation in flowsheet General: generally looks a little better HEENT: Normocephalic, atraumatic, pupils round and equal, sclerae anicteric, no conjunctival injection, moist mucus membranes Lungs: Normal respiratory effort. Clear to auscultation bilaterally. No RRW Heart: Regular rate and rhythm, no murmurs. No JVD Abdomen: Soft, generally nontender but TTP in LLQ or L inguinal area, nondistended. Bowel sounds present. Extremities: Warm, dry, well-perfused. No extremity edema. L groin with small sinus tract in groin fold that is currently healed over without drainage or inflammation Neuro: Alert and oriented x 4, face symmetric, moves 4 extremities well Psych: anxious affect and normal behavior Results & Data Results & Data Vital Signs (Past 12 Hours) Vital Signs Temp Pulse Resp BP Pulse Ox O2 Del Method 06/16/24 07:11 98.1 F 73 18 105/69 94 Room Air Laboratory Results 06/13/24 06:01 06/16/24 06:57 PG Care Time/CCT Total # of Minutes Spent Total Time Spent with Patient: Total time spent is greater than 50% in coordination of care (as documented) at patient's floor/unit and/or counseling patient: Coding Level of Care Code 54354 SUB INP/OBS CARE 3/50MIN Diagnoses Intractable nausea and vomiting R11.2 Abdominal pain R10.9 Type 1 diabetes E10.9 Diabetes mellitus complication status: without complication MDD (major depressive disorder), recurrent, in partial remission F33.41 Thrombosis of ovarian vein I82.890 (3) Type 1 diabetes Diabetes mellitus complication status: without complication Qualified Code(s): E10.9 - Type 1 diabetes mellitus without complications
[2024-06-16 10:24] LABS: C Reactive Protein 0.58 mg/dl (0-0.5)
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
--- NOTE | 2024-06-16 12:26 | Ultrasound Report ---
US soft tissue groin HISTORY: 39 years-old Female possible L groin abscess, hidradenitis? Acute pain and swelling of the left inguinal tissues COMPARISON: CT 06/15/2024 TECHNIQUE: Multiple real-time sonographic images of the left inguinal tissues were obtained assessing grayscale appearance and color flow FINDINGS: No mass, or drainable collection identified. Edema/irregularity within the superficial subcutaneous t issues measures approximately 2.0 x 0.4 x 3.9 cm. Physiologic-appearing inguinal chain lymph nodes me asuring up to 2.8 x 1.1 x 2.5 cm. IMPRESSION: 1. No mass or drainable collection identified. 2. Heterogeneity and edema within the superficial subcutaneous tissues is likely postprocedural. A de veloping phlegmon could appear similarly. 3. Likely physiologic lymphadenopathy. ACT 112: Negative or not required by law. The above report was generated using voice recognition software. It may contain grammatical, syntax o r spelling errors. Electronically signed by: Rodger Garcia M.D. 06/16/2024 12:24 PM
[2024-06-16] MEDS: OXYMETAZOLINE 0.05% 30 ML BTL SCH (21:40)
[2024-06-16] MEDS: RIVAROXABAN 15 MG TAB PO SCH (21:41)
[2024-06-16] MEDS: FLUTICASONE PROPIONATE NA SPR 16 GM BTL SCH (21:41)
[2024-06-17 07:45] VITALS: BP 101/68; PULSE 49; RESP 15; TEMP 97.7; O2SAT 96
[2024-06-17 10:36] LABS: A calco-baum cmplx NotReported Not Detected (NotDetected); Bact fragilis Not Reported Not Detected (NotDetected); Blood Culture Id Panel See PCR Comment (NotDetected); C auris Not Reported Not Detected (NotDetected); Calbicans Not Reported Not Detected (NotDetected); Candida glabrata Not Reported Not Detected (NotDetected); Candida krusei Not Reported Not Detected (NotDetected); Cneoformans/gatti Not Reported Not Detected (NotDetected); Cparapsilosis Not Reported Not Detected (NotDetected); E cloacae compx Not Reported Not Detected (NotDetected); Efaecalis Not Reported Not Detected (NotDetected); Efaecium Not Reported Not Detected (NotDetected); Enterobacterales Not Reported Not Detected (NotDetected); Escherichia coli Not Reported Not Detected (NotDetected); H influenzae Not Reported Not Detected (NotDetected); K aerogenes Not Reported Not Detected (NotDetected); Koxytoca Not Reported Not Detected (NotDetected); Kpneumoniae grp Not Reported Not Detected (NotDetected); Lmonocyt Not Reported Not Detected (NotDetected); N meningitidis Not Reported Not Detected (NotDetected); P aeruginosa Not Reported Not Detected (NotDetected); Proteus spp Not Reported Not Detected (NotDetected); Salmonella spp Not Reported Not Detected (NotDetected); Staph lugdunensis Not Reported Not Detected (NotDetected); Staph spp. Not Reported DETECTED (NotDetected); Staphaureus Not Reported Not Detected (NotDetected); Staphepi Not Reported DETECTED (NotDetected); Stenmaltophilia Not Reported Not Detected (NotDetected); Strep agal(GrpB) Not Reported Not Detected (NotDetected); Strep pneum Not Reported Not Detected (NotDetected); Strep pyog (GrpA) Not Reported Not Detected (NotDetected); Strep spp Not Reported Not Detected (NotDetected); mecAC Resistant Gene Not Detected (NotDetected)
[2024-06-17 10:49] LABS: Staphylococcus epidermidis DETECTED (NotDetected); Staphylococcus spp. DETECTED (NotDetected)
--- NOTE | 2024-06-17 18:18 | Discharge Summary ---
Discharge Summary Date of Service June 17, 2024 Principal Dx & Hospital Course #1 = Principal Diagnosis (1) Intractable nausea and vomiting: (2) Abdominal pain: (3) Type 1 diabetes: (4) MDD (major depressive disorder), recurrent, in partial remission: (5) Thrombosis of ovarian vein: Simone Rivera is a 39-year-old female with longstanding diabetes, gastroparesis, esophagitis, psychogenic nausea and vomiting, anxiety, and PTSD. She presents with intractable nausea, vomiting, and abdominal pain since recent discharge on 06/10. Symptoms this admission have been stereotypical for her, but this fall/winter seems to have spent most of the time in a hospital/ER. Planning G- POEM procedure for her gastroparesis with GI later this month. During admission workup obtained pelvic ultrasound and TVUS to evaluate for possible en dometriosis. No endometrial implants seen, however, pelvic vein thrombosis was identified. CT venogram obtained which shows left ovarian vein thrombosis. She also has history of a recurrently draining site in left inguinal fold next to her vulva. It intermittently drains foul smelling fluid. She had a day surgery at [facility] on this area in December to address it, but did not fix the problem. CT v enogram shows a 3 x 1.6 x 1.9 cystic structure in left pelvis that is distinct from the adnexa. She has a history of tubal ligation and no recent pregnancies. #acute flare of diabetic gastroparesis Multiple admissions for such - suspect multifactorial GERD/Esophagitis/Gastroparesis Her outpatient gastroenterology is not in our system so do not have records of previous testing. EGD done here this past year with severe esophagitis. Treated with IV fluids, antiemetics, avoidance of opioids Symptoms improved to her baseline and tolerating her usual diet -history of self-induced vomiting - she says she's been doing this a lot less recently, current mental health meds helping Continue BID PPI, Carafate QID, Pepcid BID, antiemetics # left ovarian vein thrombosis (vein proximal to this appears stenotic), left pelvis cystic structure Left groin/pelvis is somewhat tender, though entire abdomen tends to be painful - consulted [facility] - discussed with Dr. Abreu - does not appear that the ovarian vein thrombosis is related to her pelvic cysts, which are likely benign, question of thrombophilia, family history of Factor V Leiden - vein is not dilated and no surrounding stranding or edema - unlikely acute septic venous thrombosis, blood cultures drawn and pending - 1 bottle with staph epi probably skin contaminant, very difficult blood draw - consider 2-6 weeks of anticoagulation - problematic because she vomits frequently may not tolerate DOAC, enoxaparin caused vomiting in the past (she was on this for superficial phlebitis in UE and LE from IV sites) - ordered hypercoagulability panel including Factor V Leiden - tolerating rivaroxaban in hospital - continue - ovarian vein thrombosis usually treated with 2-6 weeks anticoagulation (excepting if thrombophilia is identified) - she has history of superficial venous thromboses in L arm and R leg recently related to IV sites - these resolved - made referral hematology for interpretation of thrombophilia tests and advice on duration of anticoagulation -she can hold the xarelto perioperatively for the G-POEM procedure and bridging is not required since this clot is very low risk to embolize and unlikely to propagate after several weeks anticoagulation (see below) -discussed risks:benefits of anticoagulation with her recurrently draining sinus tract in left inguinal area (not currently draining) - last drained 2 weeks ago - obtained US of left inguinal region and there is no drainable fluid collection, edema/irregular area 2.0x0.4x3.9 cm could be postop changes or early phlegmon - advised she should get evaluated by physician when the area is swelling (prior to spontaneous drainage) to see whether repeat I&D / excision would be more successful. Sounds like hidradenitis suppurativa - ordered urine NAAT for GC/chlamydia - pending #Abdominal pain - probably from diabetic gastroparesis which can be very painful LFTs and lipase WNL. KUB with moderate retained stool prior considerations for abdominal migraines or from cyclic vomiting Considered endometriosis - obtained pelvic US - no evidence of endometrial implants she does have ovarian cysts and other findings discussed above Avoid opiates - Toradol, Tylenol prn, Bentyl prn, heating pad. continue linzess porphyrins were sent on admission - pending - though many other explanations for pain besides porphyria # headachepossibly migraine - was given prescription for Nurtec on last discharge but requires prior authorization by insurance - some partial response to 6 mg subcu x 1 2/6. very unlikely to tolerate oral triptan because of chronic nausea and emesis - still with headache 06/15 - Depakote 500 mg IV x 1 - still with headache 06/16 - had some but not complete response to migraine treatment - trial decongestants for possible sinusitis - headache better today #DMT1 Continue losartan Continue insulin #Adrenal insufficiency Concern during last admission and started on hydrocortisone I reviewed the cosyntropin stim test done last admission and stim was normal, despite baseline low a.m. cortisol of 0.6 ACTH was <5 which is low Keep outpatient endocrinology appointment #Ovarian cysts - appear benign. see above. Mental health - continue trintellix (not available unless she brings it in), Remeron, prn clonazepam Notes For Next Care Provider labs pending: blood culture, porphyrins, hypercoagulability labs made hematology referral Medication Changes From Visit added xarelto for ovarian vein thrombosis - typical course 2-6 weeks. If hypercoagulable state identified, may need to extend Admission HPI Per Admitting Provider Nicole is a 39-year-old female with PMH of gastroparesis, esophagitis, psychogenic nausea and vomiting, anxiety, and PTSD. She presents with intractable nausea, vomiting, and abdominal pain since recent discharge on 06/10. States the pain is the same as prior. Has been trying to take her pills but vomits most of them back up. She is scheduled to have G-POEM procedure with [facility] later this month. Is currently on her period, reports moderate flow, no contraception. Does seem like her abdominal pain is worse when she is on her period. Request morphine and requesting her oxygen be turned back on - despite her oxygen levels being 96%. This was not turned on. ED course: NSS 1L Bolus Benadryl 50mg IV Compazine IV Phenergan IV toradol 10mg IV x1 Ativan 1mg IV x1 Droperidol 0.625mg IV tylenol 1000mg IV x1 Discharge Exam PHYSICAL EXAMINATION Last 24h vital signs reviewed, see documentation in flowsheet General: generally looks a little better, lying flat in bed HEENT: Normocephalic, atraumatic, pupils round and equal, sclerae anicteric, no conjunctival injection, moist mucus membranes Lungs: Normal respiratory effort. Clear to auscultation bilaterally. No RRW Heart: deferred Abdomen: nondistended Extremities: Warm, dry, well-perfused. L groin with small sinus tract in groin fold that is currently healed over without drainage or inflammation - exam from yesterday Neuro: Alert and oriented x 4, face symmetric, moves 4 extremities well Psych: anxious affect and normal behavior Discharge Plan Discharge Items Patient Disposition: Home - Self-Care Reason For Visit: N/V, ABDOMINAL PAIN Discharge Diagnosis: gastroparesis flare, left ovarian vein thrombosis Activity: Resume your previous activity Non-emergency contact: Primary Care Provider and Truck Greaser Call non-emergency contact if: you have any medication questions and your symptoms worsen Follow-up/Referrals: Mona Galvan MD [Physician] - Bekah Guillermo DO [Primary Care Provider] - Diet: Other - See Diet Comment Diet Comment: Resume your usual diet Addtl Attending Provider Instructions: You were treated for gastroparesis flare which improved We did some ultrasounds to check for endometriosis (we did not see any) but found a blood clot in your left ovarian vein This is probably not causing pain and may be chronic, however, we recommend two to six weeks of blood thinner for this (xarelto) Its unusual to get a clot there except after , so we sent a lot of blood tests to check for a clotting disorder (including Factor V Leiden) We made referral to hematology (blood specialist) - Dr. Velasquez or Dr. Galvan - they can help follow up and interpret the blood clotting tests and make a recommendation for how long you should be on blood thinner It is ok to hold your xarelto for the endoscopy procedure. You should hold it for 48 hours prior to the procedure. For example, if your procedure is on a , don't take xarelto on Tuesday, Tuesday, or . Your tapering machine operator will tell you when it is safe to resume it after the procedure - usually 24 to 48 hours later. Seek medical attention if you have abnormal bleeding - including black, tarry or bloody stools, vomiting a significant amount of blood (more than a few streaks). Don't take the baby aspirin while you're taking xarelto unless your physician tells you to. For the left groin area that drains - we did an ultrasound and there is some scar tissue but not an abscess. It would probably be helpful if you saw a doctor about this when it is swollen up, before it drains spontaneously. Then a culture could be obtained, and perhaps a surgeon could drain it and address the underlying problem. Try nose sprays for sinusitis to see if your headache gets better. We tried some migraine treatment in the hospital, it might have been partially effective but I'm not sure the headache was migraine (we tried sumatriptan subcutaneous, and an IV depakote dose I don't think you have adrenal insufficiency based on the testing that was done. Follow up with endocrinology and/or talk to your primary care doctor about the hydrocortisone. It was a pleasure taking care of you in the hospital, Crystal Shipley MD Pending Studies at Discharge: Yes Studies:: blood cultures Stand-Alone Forms: My [facility] [employer], Smoking Cessation Medications and DC Order Prescriptions: New Xarelto 15 mg Tablet 15 mg PO BID Qty: 42 0RF Rx Instructions: take 15 mg twice a day for 21 days, then decrease to 20 mg once a day Xarelto 20 mg tablet 20 mg PO DAILY Qty: 7 0RF Rx Instructions: must administer with evening meal take 15 mg twice a day for 21 days, then decrease to 20 mg once a day and continue doxazosin 2 mg Tablet 2 mg PO HS Qty: 30 0RF fluticasone propionate 50 mcg/actuation [place],Suspension 1 spray NA DAILY Qty: 16 0RF oxymetazoline [Nasal [place] (oxymetazoline)] 0.05 % [place],Non-Aerosol 1 spray NA BID Qty: 15 0RF Rx Instructions: Buy over the counter. One spray each nostril twice a day for three days for sinusitis. Stop after three days. Continued insulin aspart U-100 100 unit/mL (3 mL) insulin pen See Rx Instructions .ROUTE .COMPLEX Rx Instructions: Inject 5 units w/ small carb meal, 8 units w/ medium carb meal and 12 units w/ large carb meal ondansetron 4 mg tablet,disintegrating 4 mg PO Q8 PRN (Reason: Nausea And Vomiting) Invega Sustenna 234 mg/1.5 mL syringe 234 mg IM MONTHLY Rx Instructions: DUE APRIL 29 losartan 25 mg tablet 25 mg PO HS cyanocobalamin (vitamin B-12) 500 mcg Tablet 1,000 mcg PO QAM Qty: 0 0RF Rx Instructions: Unable to verify OTC meds at this date/time. sennosides [Senokot] 8.6 mg Tablet 17.2 mg PO QAM PRN (Reason: constipation) Qty: 0 0RF Rx Instructions: Unable to OTC meds at this date/time. polyethylene glycol 3350 [Miralax] 17 gram Powder In Packet 17 g PO DAILY Qty: 0 0RF Rx Instructions: Unable to verify OTC meds at this date/time. sucralfate 100 mg/mL suspension 1,000 mg PO ACHS Qty: 473 0RF mirtazapine 30 mg tablet 30 mg PO HS esomeprazole magnesium 40 mg capsule,delayed release(DR/EC) 40 mg PO BID Linzess 145 mcg capsule 145 mcg PO QAM hydrocortisone 5 mg tablet 5 mg PO DIRECTED Qty: 60 0RF Rx Instructions: take 15mg (5mg x 3) every morning and 5mg every afternoon starting 06/11/24. Take with food. promethazine 12.5 mg tablet 12.5 mg PO Q6H PRN (Reason: nausea and vomiting) Qty: 20 0RF metoprolol succinate 25 mg tablet extended release 24 hr 25 mg PO DAILY insulin glargine [Lantus Solostar U-100 Insulin] 100 unit/mL (3 mL) insulin pen See Rx Instructions .ROUTE .COMPLEX Rx Instructions: 20 units qAM and 19 units qPM Trintellix 20 mg tablet 20 mg PO DAILY diclofenac sodium 1 % gel 1 g TOPICAL UD Rx Instructions: 1 gm to right leg and left arm twice a day. Unable to verify OTC meds at this date/time. clonazepam 0.5 mg tablet,disintegrating 0.5 mg PO TID MDD 1.5 mg PRN (Reason: Anxiety) Held aspirin 81 mg tablet,delayed release (DR/EC) 0 mg PO DAILY Hold Instructions: Resume on 07/22/24. hold aspirin until you are no longer taking xarelto Rx Instructions: Unable to verify OTC meds at this date/time. Pharmacy has listed as follows, pt may have gotten OTC: 81mg by mouth once daily Discontinued doxazosin 2 mg tablet 2 mg PO HS Qty: 0 0RF Rx Instructions: Take 2mg at bedtime only 2qam - 1.5tab at hs Nurtec ODT 75 mg tablet,disintegrating 75 mg PO DAILY PRN (Reason: migraine headache) Rx Instructions: maximum 1 tablet in 24 hours. Discharge Orders: Discharge Order (Routine); Ordered 06/17/24 Ordered By: Crystal Shipley Admission Data Admit Date/Time: 06/15/24 18:47 Attending Provider: Crystal Shipley Admit Provider: Henrry Mcbride Primary Care Provider: Bekah Guillermo Other Providers: Christin Pinto; Henrry Mcbride; Vicenta Abreu Other Interventions: Discharge Summary Assessment (RN) Last Done: 06/17/24 12:32 Hospital Stay Data Consultations 06/13/24 10:47 ED Decision to Admit Stat 06/13/24 15:20 Consult Pain Management Routine 06/16/24 09:38 Consult Gynecology Routine Diagnostic Imagining Performed 06/14/24 US pelvic complete Urgent US transvaginal Urgent 06/15/24 16:57 CT venogram LE LT wo/w con Routine 06/16/24 11:22 US soft tissue groin Routine Pending Results Patient Have Any Pending Studies at Discharge: Yes Discharge Instructions Given to Patient (Per Discharging Provider) You were treated for gastroparesis flare which improved We did some ultrasounds to check for endometriosis (we did not see any) but found a blood clot in your left ovarian vein This is probably not causing pain and may be chronic, however, we recommend two to six weeks of blood thinner for this (xarelto) Its unusual to get a clot there except after , so we sent a lot of blood tests to check for a clotting disorder (including Factor V Leiden) We made referral to hematology (blood specialist) - Dr. Velasquez or Dr. Galvan - they can help follow up and interpret the blood clotting tests and make a recommendation for how long you should be on blood thinner It is ok to hold your xarelto for the endoscopy procedure. You should hold it for 48 hours prior to the procedure. For example, if your procedure is on a , don't take xarelto on Tuesday, Tuesday, or . Your tapering machine operator will tell you when it is safe to resume it after the procedure - usually 24 to 48 hours later. Seek medical attention if you have abnormal bleeding - including black, tarry or bloody stools, vomiting a significant amount of blood (more than a few streaks). Don't take the baby aspirin while you're taking xarelto unless your physician tells you to. For the left groin area that drains - we did an ultrasound and there is some scar tissue but not an abscess. It would probably be helpful if you saw a doctor about this when it is swollen up, before it drains spontaneously. Then a culture could be obtained, and perhaps a surgeon could drain it and address the underlying problem. Try nose sprays for sinusitis to see if your headache gets better. We tried some migraine treatment in the hospital, it might have been partially effective but I'm not sure the headache was migraine (we tried sumatriptan subcutaneous, and an IV depakote dose I don't think you have adrenal insufficiency based on the testing that was done. Follow up with endocrinology and/or talk to your primary care doctor about the hydrocortisone. It was a pleasure taking care of you in the hospital, Crystal Shipley MD Total Time Total Time Spent Total Time Spent (In Minutes): I personally spent: 45 minutes today on clinical care activities including: reviewing chart notes and vital signs reviewing labs reviewing studies examining and counseling the patient writing orders writing prescriptions, discharge instructions documentation Coding Level of Care Code 26764 INP/OBS DISCH >30 MIN Diagnoses Intractable nausea and vomiting R11.2 Abdominal pain R10.9 Type 1 diabetes E10.9 Diabetes mellitus complication status: without complication MDD (major depressive disorder), recurrent, in partial remission F33.41 Thrombosis of ovarian vein I82.890
[2024-06-17] MEDS ORDERED: LANTUS PER UNIT CHARGE SQ SCH (21:00)
[2024-06-19 12:52] LABS: Chlam trach RNA(Genit,Ureth,Ur Not Detected (NotDetected); GC(Neis gon)RNA(Genit,Ureth,Ur Not Detected (NotDetected)
== END 2024-06-17 13:18 | disposition home or self-care (01) | DRG 74 ==
LOC: EDINP 05:18 → ED 05:18 → SUATTDRO 12:44 → 3W 13:47